=== PATIENT | female | born 1960 | race African-American/Black ===

== ENCOUNTER 2022-10-13 21:18 | Inpatient (IN) | payer OTHER ==
[2022-10-13] MEDS ORDERED: SODIUM CHLORIDE 0.9% 500 ML INFUS.BAG IV ONE (22:31)
[2022-10-13] MEDS: ALBUTEROL SO4 2.5/IPRATROPIUM 0.5 INH SOL 3 ML VIAL.NEB. NEB SCH ×4 (22:45→23:30)
[2022-10-13 23:31] LABS: BASO % 0.2 % (0-2.0); EOS % 0.9 % (0-4.5); HEMOGLOBIN 10.9 GM/dL (10.7-15.3); LYMPH % 5.2 % (8-40); MCHC 31.2 g/dl (32.0-36.0); MEAN CELL VOLUME 92.9 fl (80-96); MEAN PLT VOLUME 10.4 fl (7.5-11.1); NEUT % 89.7 % (42.8-82.8); PLATELET COUNT 89 10^3/uL (134-434); RBC 3.77 M/mm3 (3.60-5.2); RDW 19.5 % (11.6-15.6)
[2022-10-13 23:53] LABS: CALCIUM 8.8 mg/dL (8.5-10.1)
[2022-10-13] MEDS ORDERED: ALBUTEROL SO4 2.5/IPRATROPIUM 0.5 INH SOL 3 ML VIAL.NEB. NEB ONE (23:53)
[2022-10-13 23:54] LABS: ALBUMIN 3.3 g/dl (3.4-5.0); BLOOD UREA NITROGEN 64.6 mg/dL (7-18)
[2022-10-13 23:57] LABS: CREATININE 6.6 mg/dL (0.55-1.3)
[2022-10-13 23:58] LABS: BILIRUBIN,TOTAL 0.9 mg/dL (0.2-1); TOT PROT 6.3 g/dl (6.4-8.2)
[2022-10-14] MEDS ORDERED: DEXTROSE 50%-WATER - 25 GM/50 ML VIAL IVPUSH ONE ×3 (00:10→02:52)
[2022-10-14] MEDS ORDERED: DEXTROSE 50%-WATER 25 GM/50 ML DISP.SYRIN ONE ×3 (00:13→02:41)
[2022-10-14] MEDS ORDERED: MAGNESIUM 1GM/D5W - 1 GM/100 ML IVPB IVPB ONE (00:23)
[2022-10-14] MEDS ORDERED: CLOPIDOGREL BISULFATE 300 MG TABLET PO ONE (00:54)
[2022-10-14] MEDS ORDERED: CLOPIDOGREL BISULFATE 300 MG TABLET ONE (01:26)
[2022-10-14 02:27] LABS: N-TERMINAL BNP 56358.3 pg/ml (5-125)
[2022-10-14] MEDS ORDERED: ALBUTEROL SO4 0.083% IH SOL 2.5 MG/3 ML VIAL.NEB. NEB PRN (03:02)
[2022-10-14] MEDS ORDERED: HEPARIN NA (PORCINE) 5,000 UNITS/ML 1ML VIAL IVPUSH PRN ×2 (06:59)
[2022-10-14 07:40] LABS: INR 1.13 (0.83-1.09)
[2022-10-14 07:43] LABS: ACTIVATED PTT 28.1 SECONDS (25.2-36.5)
[2022-10-14] MEDS: HEPARIN INFUSION - 25,000 UNITS/500 ML INFUS.BAG IVPB SCH (08:45)
[2022-10-14] MEDS: metoPROLOL SUCCINATE 25 MG TAB.SR.24H (FP) PO SCH ×2 (09:37→18:02)
[2022-10-14] MEDS: CLOPIDOGREL BISULFATE 75 MG TABLET (FP) PO SCH (09:37)
[2022-10-14] MEDS: MUPIROCIN 2% TOPICAL OINTMENT FOR DECOLONIZATION NS SCH ×2 (09:37→21:45)
[2022-10-14] MEDS: PANTOPRAZOLE 40 MG TABLET PO SCH (09:37)
[2022-10-14] MEDS: POLYETHYLENE GLYCOL (HEALTHYLAX) 3350 17 GM PACKET PO SCH ×2 (09:37→21:46)
[2022-10-14] MEDS ORDERED: MUPIROCIN 2% TOPICAL OINTMENT FOR DECOLONIZATION NS SCH (10:00)
[2022-10-14] MEDS: CHLORHEXIDINE GLUCONATE 4% CLEANSER FOR DECOLONIZATION TP SCH (21:46)
[2022-10-14] MEDS ORDERED: CHLORHEXIDINE GLUCONATE 4% CLEANSER FOR DECOLONIZATION TP SCH (22:00)
[2022-10-15] MEDS: metoPROLOL SUCCINATE 25 MG TAB.SR.24H (FP) PO SCH ×3 (01:09→17:35)
[2022-10-15 07:59] LABS: BLOOD UREA NITROGEN 73.2 mg/dL (7-18)
[2022-10-15 08:01] LABS: ALBUMIN 2.6 g/dl (3.4-5.0)
[2022-10-15 08:04] LABS: CREATININE 7.1 mg/dL (0.55-1.3); PHOSPHOROUS 6.3 mg/dL (2.5-4.9)
[2022-10-15 08:05] LABS: BILIRUBIN,TOTAL 0.7 mg/dL (0.2-1); TOT PROT 5.3 g/dl (6.4-8.2)
[2022-10-15 08:18] LABS: CALCIUM 7.2 mg/dL (8.5-10.1)
[2022-10-15 08:23] LABS: INR 1.09 (0.83-1.09); PROTHROMBIN TIME (PATIENT) 12.6 SEC (9.7-13.0)
[2022-10-15 08:24] LABS: ACTIVATED PTT 52.6 SECONDS (25.2-36.5)
[2022-10-15 08:59] LABS: BASO % 0.2 % (0-2.0); EOS % 2.5 % (0-4.5); HEMATOCRIT 30.4 % (32.4-45.2); HEMOGLOBIN 9.5 GM/dL (10.7-15.3); LYMPH % 9.8 % (8-40); MCH 29.2 pg (25.7-33.7); MCHC 31.3 g/dl (32.0-36.0); MEAN CELL VOLUME 93.2 fl (80-96); MEAN PLT VOLUME 10.3 fl (7.5-11.1); MONO % 2.7 % (3.8-10.2); NEUT % 84.8 % (42.8-82.8); PLATELET COUNT 79 10^3/uL (134-434); RBC 3.27 M/mm3 (3.60-5.2); RDW 19.6 % (11.6-15.6); WHITE BLOOD COUNT 5.4 K/mm3 (4.0-10.0)
[2022-10-15] MEDS: HEPARIN INFUSION - 25,000 UNITS/500 ML INFUS.BAG IVPB SCH (10:00)
[2022-10-15] MEDS: CLOPIDOGREL BISULFATE 75 MG TABLET (FP) PO SCH (10:17)
[2022-10-15] MEDS: MUPIROCIN 2% TOPICAL OINTMENT FOR DECOLONIZATION NS SCH ×2 (10:19→21:34)
[2022-10-15] MEDS: PANTOPRAZOLE 40 MG TABLET PO SCH (10:19)
[2022-10-15] MEDS: POLYETHYLENE GLYCOL (HEALTHYLAX) 3350 17 GM PACKET PO SCH ×2 (10:20→21:33)
[2022-10-15] MEDS: SODIUM CHLORIDE 0.45% 1,000 ML IV SCH (11:41)
[2022-10-15] MEDS: CEFTRIAXONE 1 GM in DEXTROSE 5%-WATER - 50 ML IVPB SCH (11:41)
[2022-10-15] MEDS: CHLORHEXIDINE GLUCONATE 4% CLEANSER FOR DECOLONIZATION TP SCH (21:33)
[2022-10-16] MEDS: SODIUM CHLORIDE 0.45% 1,000 ML IV SCH ×2 (01:49→15:15)
[2022-10-16] MEDS: metoPROLOL SUCCINATE 25 MG TAB.SR.24H (FP) PO SCH ×2 (03:01→09:47)
[2022-10-16 07:22] LABS: BASO % 0.1 % (0-2.0); EOS % 1.8 % (0-4.5); HEMATOCRIT 31.4 % (32.4-45.2); HEMOGLOBIN 9.7 GM/dL (10.7-15.3); LYMPH % 7.6 % (8-40); MCHC 30.7 g/dl (32.0-36.0); MEAN CELL VOLUME 94.5 fl (80-96); MEAN PLT VOLUME 10.6 fl (7.5-11.1); MONO % 3.8 % (3.8-10.2); NEUT % 86.7 % (42.8-82.8); PLATELET COUNT 88 10^3/uL (134-434); RBC 3.32 M/mm3 (3.60-5.2); RDW 19.5 % (11.6-15.6); WHITE BLOOD COUNT 5.6 K/mm3 (4.0-10.0)
[2022-10-16 07:37] LABS: CALCIUM 7.2 mg/dL (8.5-10.1)
[2022-10-16 07:38] LABS: ALBUMIN 2.6 g/dl (3.4-5.0); BLOOD UREA NITROGEN 74.7 mg/dL (7-18)
[2022-10-16 07:41] LABS: CREATININE 7.2 mg/dL (0.55-1.3); PHOSPHOROUS 6.1 mg/dL (2.5-4.9)
[2022-10-16 07:43] LABS: BILIRUBIN,TOTAL 0.4 mg/dL (0.2-1); TOT PROT 5.6 g/dl (6.4-8.2)
[2022-10-16] MEDS: CLOPIDOGREL BISULFATE 75 MG TABLET (FP) PO SCH (09:46)
[2022-10-16] MEDS: PANTOPRAZOLE 40 MG TABLET PO SCH (09:47)
[2022-10-16] MEDS: CEFTRIAXONE 1 GM in DEXTROSE 5%-WATER - 50 ML IVPB SCH (09:48)
[2022-10-16] MEDS: POLYETHYLENE GLYCOL (HEALTHYLAX) 3350 17 GM PACKET PO SCH ×2 (09:48→23:57)
[2022-10-16] MEDS ORDERED: SODIUM ZIRCONIUM CYCLOSILICATE (LOKELMA) 5 GM PACKET PO SCH (10:00)
[2022-10-16] MEDS ORDERED: PIPERACILLIN/TAZOB 2.25 GM 2.25 GM in DEXTROSE 5%-WATER - 50 ML IVPB ONE ×2 (12:30→15:11)
[2022-10-16] MEDS ORDERED: ALBUTEROL SO4 0.083% IH SOL 2.5 MG/3 ML VIAL.NEB. NEB PRN (15:11)
[2022-10-16] MEDS: SODIUM ZIRCONIUM CYCLOSILICATE (LOKELMA) 5 GM PACKET PO SCH (15:18)
[2022-10-16 15:36] LABS: EPI CELLS 33 /uL (0-25.1); HYALINE CASTS 3 /uL (0-3.1); URINE APPEARANCE CLOUDY; URINE BACTERIA 76 /uL (0-1359); URINE BILIRUBIN NEGATIVE (NEGATIVE); URINE COLOR YELLOW; URINE GLUCOSE (UA) NEGATIVE (NEGATIVE); URINE KETONE NEGATIVE (NEGATIVE); URINE LEUK ESTERASE 1+ (NEGATIVE); URINE NITRITE NEGATIVE (NEGATIVE); URINE PROTEIN 2+ (NEGATIVE); URINE RBC 155 /uL (0-23.9); URINE UROBILINOGEN 0.2 mg/dL (0.2-1.0); URINE WBC 43 /uL (0-25.8)
[2022-10-16] MEDS ORDERED: metoPROLOL SUCCINATE 25 MG TAB.SR.24H (FP) PO SCH (18:00)
[2022-10-16] MEDS: PIPERACILLIN/TAZOB 2.25 GM 2.25 GM in DEXTROSE 5%-WATER - 50 ML IVPB SCH (23:56)
[2022-10-16] MEDS: ATORVASTATIN CA 40 MG TABLET (FP) PO SCH (23:56)
[2022-10-17] MEDS: CHLORHEXIDINE GLUCONATE 4% CLEANSER FOR DECOLONIZATION TP SCH (00:30)
[2022-10-17] MEDS: MUPIROCIN 2% TOPICAL OINTMENT FOR DECOLONIZATION NS SCH ×3 (00:30→21:50)
[2022-10-17] MEDS: PIPERACILLIN/TAZOB 2.25 GM 2.25 GM in DEXTROSE 5%-WATER - 50 ML IVPB SCH (07:01)
[2022-10-17 08:04] LABS: HEMATOCRIT 29.2 % (32.4-45.2); HEMOGLOBIN 9.3 GM/dL (10.7-15.3); MCH 29.9 pg (25.7-33.7); MCHC 31.9 g/dl (32.0-36.0); MEAN CELL VOLUME 93.9 fl (80-96); MEAN PLT VOLUME 10.1 fl (7.5-11.1); PLATELET COUNT 84 10^3/uL (134-434); RBC 3.11 M/mm3 (3.60-5.2); RDW 19.1 % (11.6-15.6); WHITE BLOOD COUNT 5.4 K/mm3 (4.0-10.0)
[2022-10-17 08:38] LABS: CALCIUM 7.4 mg/dL (8.5-10.1)
[2022-10-17 08:39] LABS: ALBUMIN 2.4 g/dl (3.4-5.0); BLOOD UREA NITROGEN 78.8 mg/dL (7-18)
[2022-10-17 08:42] LABS: BILIRUBIN,TOTAL 0.4 mg/dL (0.2-1); CREATININE 7.3 mg/dL (0.55-1.3); TOT PROT 5.5 g/dl (6.4-8.2)
[2022-10-17] MEDS ORDERED: CLOPIDOGREL BISULFATE 75 MG TABLET (FP) PO SCH (10:00)
[2022-10-17] MEDS: CARVEDILOL 3.125 MG TABLET (FP) PO SCH ×2 (10:17→21:52)
[2022-10-17] MEDS: PANTOPRAZOLE 40 MG TABLET PO SCH (10:17)
[2022-10-17] MEDS: POLYETHYLENE GLYCOL (HEALTHYLAX) 3350 17 GM PACKET PO SCH ×2 (10:17→21:54)
[2022-10-17] MEDS: SODIUM ZIRCONIUM CYCLOSILICATE (LOKELMA) 5 GM PACKET PO SCH (10:17)
[2022-10-17] MEDS: SODIUM BICARBONATE 650 MG TABLET PO SCH ×2 (14:51→21:52)
[2022-10-17] MEDS: SODIUM CHLORIDE 0.45% 1,000 ML IV SCH (14:51)
[2022-10-17] MEDS: CEFTRIAXONE 1 GM in DEXTROSE 5%-WATER - 50 ML IVPB SCH (14:51)
[2022-10-17] MEDS: ATORVASTATIN CA 40 MG TABLET (FP) PO SCH (21:52)
[2022-10-18] MEDS: CHLORHEXIDINE GLUCONATE 4% CLEANSER FOR DECOLONIZATION TP SCH ×2 (06:12→20:59)
[2022-10-18 07:29] LABS: BASO % 0.4 % (0-2.0); EOS % 2.3 % (0-4.5); HEMATOCRIT 28.8 % (32.4-45.2); HEMOGLOBIN 9.3 GM/dL (10.7-15.3); LYMPH % 13.7 % (8-40); MCH 29.6 pg (25.7-33.7); MCHC 32.2 g/dl (32.0-36.0); MEAN PLT VOLUME 10.3 fl (7.5-11.1); MONO % 7.2 % (3.8-10.2); NEUT % 76.4 % (42.8-82.8); PLATELET COUNT 89 10^3/uL (134-434); RBC 3.14 M/mm3 (3.60-5.2); RDW 18.8 % (11.6-15.6); WHITE BLOOD COUNT 5.4 K/mm3 (4.0-10.0)
[2022-10-18 07:42] LABS: CALCIUM 7.6 mg/dL (8.5-10.1)
[2022-10-18 07:43] LABS: ALBUMIN 2.5 g/dl (3.4-5.0); BLOOD UREA NITROGEN 83.1 mg/dL (7-18)
[2022-10-18 07:46] LABS: CREATININE 7.4 mg/dL (0.55-1.3)
[2022-10-18 07:47] LABS: BILIRUBIN,TOTAL 0.4 mg/dL (0.2-1); TOT PROT 5.6 g/dl (6.4-8.2)
[2022-10-18] MEDS: SODIUM CHLORIDE 0.45% 1,000 ML IV SCH (08:00)
[2022-10-18] MEDS ORDERED: REGADENOSON 0.4 MG/5 ML PRE-FILLED SYRINGE IVPUSH ONE (10:15)
[2022-10-18] MEDS: CEFTRIAXONE 1 GM in DEXTROSE 5%-WATER - 50 ML IVPB SCH (12:52)
[2022-10-18] MEDS: CARVEDILOL 3.125 MG TABLET (FP) PO SCH ×2 (12:52→21:39)
[2022-10-18] MEDS: POLYETHYLENE GLYCOL (HEALTHYLAX) 3350 17 GM PACKET PO SCH ×2 (12:52→21:39)
[2022-10-18] MEDS: SODIUM BICARBONATE 650 MG TABLET PO SCH ×2 (12:52→21:39)
[2022-10-18] MEDS: MUPIROCIN 2% TOPICAL OINTMENT FOR DECOLONIZATION NS SCH ×2 (12:52→20:59)
[2022-10-18] MEDS: PANTOPRAZOLE 40 MG TABLET PO SCH (12:52)
[2022-10-18] MEDS ORDERED: ACETAMINOPHEN 1000 MG/100 ML BAG IVPB ONE (15:00)
[2022-10-18] MEDS: SODIUM ZIRCONIUM CYCLOSILICATE (LOKELMA) 5 GM PACKET PO SCH (15:36)
[2022-10-18 21:11] LABS: ANTIGLOMERULAR BASEMENT MEN.AB <0.2 units (0.0-0.9)
[2022-10-18] MEDS: ATORVASTATIN CA 40 MG TABLET (FP) PO SCH (21:39)
[2022-10-19] MEDS: SODIUM CHLORIDE 0.45% 1,000 ML IV SCH (03:29)
[2022-10-19] MEDS: ACETAMINOPHEN 325 MG TABLET (FP) PO PRN (07:49)
[2022-10-19 10:00] LABS: BASO % 0.7 % (0-2.0); HEMATOCRIT 28.5 % (32.4-45.2); HEMOGLOBIN 9.1 GM/dL (10.7-15.3); LYMPH % 10.6 % (8-40); MCH 29.6 pg (25.7-33.7); MCHC 31.9 g/dl (32.0-36.0); MEAN PLT VOLUME 10.6 fl (7.5-11.1); MONO % 8.7 % (3.8-10.2); PLATELET COUNT 109 10^3/uL (134-434); RBC 3.07 M/mm3 (3.60-5.2); RDW 18.9 % (11.6-15.6)
[2022-10-19] MEDS: POLYETHYLENE GLYCOL (HEALTHYLAX) 3350 17 GM PACKET PO SCH ×2 (10:10→22:58)
[2022-10-19] MEDS: CEFTRIAXONE 1 GM in DEXTROSE 5%-WATER - 50 ML IVPB SCH (10:20)
[2022-10-19] MEDS: SODIUM BICARBONATE 650 MG TABLET PO SCH ×2 (10:21→22:58)
[2022-10-19] MEDS: PANTOPRAZOLE 40 MG TABLET PO SCH (10:21)
[2022-10-19] MEDS: CARVEDILOL 3.125 MG TABLET (FP) PO SCH ×2 (10:21→22:58)
[2022-10-19 10:29] LABS: ALBUMIN 2.4 g/dl (3.4-5.0); CALCIUM 7.7 mg/dL (8.5-10.1)
[2022-10-19 10:31] LABS: BLOOD UREA NITROGEN 87.4 mg/dL (7-18); MAGNESIUM 1.9 mg/dL (1.8-2.4)
[2022-10-19 10:33] LABS: CREATININE 7.4 mg/dL (0.55-1.3); PHOSPHOROUS 6.4 mg/dL (2.5-4.9)
[2022-10-19 10:34] LABS: TOT PROT 5.6 g/dl (6.4-8.2)
[2022-10-19 10:39] LABS: BILIRUBIN,TOTAL 0.4 mg/dL (0.2-1)
[2022-10-19] MEDS: SODIUM ZIRCONIUM CYCLOSILICATE (LOKELMA) 5 GM PACKET PO SCH (12:56)
[2022-10-19 16:08] LABS: ATYPICAL pANCA <1:20 titer (Neg:<1:20); C-ANCA <1:20 titer (Neg:<1:20)
[2022-10-19] MEDS: AMOX TR/POT CLAV 500MG/125MG TABLETS (FP) PO SCH (17:51)
[2022-10-19] MEDS: ATORVASTATIN CA 40 MG TABLET (FP) PO SCH (22:57)
[2022-10-19] MEDS: CHLORHEXIDINE GLUCONATE 4% CLEANSER FOR DECOLONIZATION TP SCH (22:58)
[2022-10-20] MEDS: AMOX TR/POT CLAV 500MG/125MG TABLETS (FP) PO SCH ×2 (08:39→17:21)
[2022-10-20 08:49] LABS: EOS % 3.1 % (0-4.5); HEMOGLOBIN 8.7 GM/dL (10.7-15.3); LYMPH % 11.8 % (8-40); MCH 29.9 pg (25.7-33.7); MCHC 31.3 g/dl (32.0-36.0); MEAN CELL VOLUME 95.5 fl (80-96); MEAN PLT VOLUME 10.6 fl (7.5-11.1); MONO % 10.4 % (3.8-10.2); NEUT % 73.7 % (42.8-82.8); PLATELET COUNT 114 10^3/uL (134-434); RBC 2.93 M/mm3 (3.60-5.2); WHITE BLOOD COUNT 5.4 K/mm3 (4.0-10.0)
[2022-10-20 08:54] LABS: CHLORIDE 114 mmol/L (98-107); SODIUM 141 mmol/L (136-145)
[2022-10-20 08:58] LABS: ALBUMIN 2.4 g/dl (3.4-5.0); ANION GAP 9 MMOL/L (8-16); CALCIUM 7.4 mg/dL (8.5-10.1); CO2 18 mmol/L (21-32); GLUCOSE,RANDOM 84 mg/dL (74-106); MAGNESIUM 1.9 mg/dL (1.8-2.4)
[2022-10-20 09:01] LABS: PHOSPHOROUS 6.6 mg/dL (2.5-4.9); SGOT/AST 10 U/L (15-37); SGPT/ALT 12 U/L (13-61)
[2022-10-20 09:03] LABS: BILIRUBIN,TOTAL 0.3 mg/dL (0.2-1); TOT PROT 5.6 g/dl (6.4-8.2)
[2022-10-20 09:04] LABS: ALK PHOS 74 U/L (45-117)
[2022-10-20 09:09] LABS: CREATININE 7.6 mg/dL (0.55-1.3)
[2022-10-20] MEDS: SODIUM BICARBONATE 650 MG TABLET PO SCH ×2 (10:32→22:34)
[2022-10-20] MEDS: POLYETHYLENE GLYCOL (HEALTHYLAX) 3350 17 GM PACKET PO SCH ×3 (10:32→22:22)
[2022-10-20] MEDS: SODIUM ZIRCONIUM CYCLOSILICATE (LOKELMA) 5 GM PACKET PO SCH (10:32)
[2022-10-20] MEDS: PANTOPRAZOLE 40 MG TABLET PO SCH (10:33)
[2022-10-20] MEDS: CARVEDILOL 3.125 MG TABLET (FP) PO SCH (10:33)
[2022-10-20 15:54] VITALS: BMI 51.5
[2022-10-20] MEDS: CHLORHEXIDINE GLUCONATE 4% CLEANSER FOR DECOLONIZATION TP SCH (22:22)
[2022-10-20] MEDS: CARVEDILOL 6.25 MG TABLET (FP) PO SCH (22:34)
[2022-10-20] MEDS: ATORVASTATIN CA 40 MG TABLET (FP) PO SCH (22:34)
[2022-10-21 07:32] LABS: BASO % 0.7 % (0-2.0); EOS % 2.5 % (0-4.5); HEMATOCRIT 29.1 % (32.4-45.2); HEMOGLOBIN 8.8 GM/dL (10.7-15.3); LYMPH % 10.5 % (8-40); MCH 29.2 pg (25.7-33.7); MCHC 30.4 g/dl (32.0-36.0); MEAN PLT VOLUME 9.8 fl (7.5-11.1); MONO % 8.6 % (3.8-10.2); NEUT % 77.7 % (42.8-82.8); PLATELET COUNT 119 10^3/uL (134-434); RBC 3.03 M/mm3 (3.60-5.2); RDW 19.3 % (11.6-15.6); WHITE BLOOD COUNT 5.1 K/mm3 (4.0-10.0)
[2022-10-21 07:49] LABS: CHLORIDE 113 mmol/L (98-107); SODIUM 143 mmol/L (136-145)
[2022-10-21 07:53] LABS: ALBUMIN 2.4 g/dl (3.4-5.0); ANION GAP 9 MMOL/L (8-16); BLOOD UREA NITROGEN 84.8 mg/dL (7-18); CALCIUM 7.6 mg/dL (8.5-10.1); CO2 21 mmol/L (21-32); GLUCOSE,RANDOM 88 mg/dL (74-106); MAGNESIUM 1.8 mg/dL (1.8-2.4)
[2022-10-21 07:55] LABS: SGPT/ALT 12 U/L (13-61)
[2022-10-21 07:57] LABS: BILIRUBIN,TOTAL 0.2 mg/dL (0.2-1); PHOSPHOROUS 6.9 mg/dL (2.5-4.9); SGOT/AST 11 U/L (15-37); TOT PROT 5.7 g/dl (6.4-8.2)
[2022-10-21 07:58] LABS: ALK PHOS 88 U/L (45-117)
[2022-10-21] MEDS: AMOX TR/POT CLAV 500MG/125MG TABLETS (FP) PO SCH ×2 (08:08→17:01)
[2022-10-21] MEDS: VITAMIN B COMP W-C 1 EA TABLET (NEPHRO-VITE) PO SCH (10:48)
[2022-10-21] MEDS: SODIUM BICARBONATE 650 MG TABLET PO SCH ×2 (10:48→21:43)
[2022-10-21] MEDS: SODIUM ZIRCONIUM CYCLOSILICATE (LOKELMA) 5 GM PACKET PO SCH (10:48)
[2022-10-21] MEDS: PANTOPRAZOLE 40 MG TABLET PO SCH (10:48)
[2022-10-21] MEDS: CARVEDILOL 6.25 MG TABLET (FP) PO SCH ×2 (10:48→21:43)
[2022-10-21] MEDS: POLYETHYLENE GLYCOL (HEALTHYLAX) 3350 17 GM PACKET PO SCH ×2 (10:49→21:43)
[2022-10-21] MEDS: CALCIUM ACETATE 667 MG CAPSULE (FP) PO SCH ×2 (12:29→17:01)
[2022-10-21] MEDS: ATORVASTATIN CA 40 MG TABLET (FP) PO SCH (21:43)
[2022-10-21] MEDS: CHLORHEXIDINE GLUCONATE 4% CLEANSER FOR DECOLONIZATION TP SCH (21:43)
[2022-10-22] MEDS: CALCIUM ACETATE 667 MG CAPSULE (FP) PO SCH ×3 (07:59→18:12)
[2022-10-22 08:06] LABS: EOS % 2.2 % (0-4.5); HEMATOCRIT 26.8 % (32.4-45.2); HEMOGLOBIN 8.4 GM/dL (10.7-15.3); LYMPH % 10.9 % (8-40); MCH 30.1 pg (25.7-33.7); MCHC 31.2 g/dl (32.0-36.0); MEAN CELL VOLUME 96.4 fl (80-96); MEAN PLT VOLUME 10.1 fl (7.5-11.1); MONO % 9.7 % (3.8-10.2); NEUT % 76.2 % (42.8-82.8); PLATELET COUNT 130 10^3/uL (134-434); RBC 2.78 M/mm3 (3.60-5.2); WHITE BLOOD COUNT 5.4 K/mm3 (4.0-10.0)
[2022-10-22] MEDS: PANTOPRAZOLE 40 MG TABLET PO SCH (09:37)
[2022-10-22] MEDS: SODIUM BICARBONATE 650 MG TABLET PO SCH ×2 (09:37→21:53)
[2022-10-22] MEDS: VITAMIN B COMP W-C 1 EA TABLET (NEPHRO-VITE) PO SCH (09:37)
[2022-10-22] MEDS: CARVEDILOL 6.25 MG TABLET (FP) PO SCH ×2 (09:37→21:53)
[2022-10-22] MEDS: POLYETHYLENE GLYCOL (HEALTHYLAX) 3350 17 GM PACKET PO SCH ×2 (09:40→21:53)
[2022-10-22] MEDS: SODIUM ZIRCONIUM CYCLOSILICATE (LOKELMA) 5 GM PACKET PO SCH (13:00)
[2022-10-22 13:10] LABS: CHLORIDE 114 mmol/L (98-107); SODIUM 143 mmol/L (136-145)
[2022-10-22 13:14] LABS: ALBUMIN 2.3 g/dl (3.4-5.0); ANION GAP 9 MMOL/L (8-16); CALCIUM 7.6 mg/dL (8.5-10.1); CO2 19 mmol/L (21-32); GLUCOSE,RANDOM 105 mg/dL (74-106)
[2022-10-22 13:15] LABS: MAGNESIUM 1.7 mg/dL (1.8-2.4)
[2022-10-22 13:18] LABS: ALK PHOS 95 U/L (45-117); PHOSPHOROUS 7.1 mg/dL (2.5-4.9); SGOT/AST 15 U/L (15-37); SGPT/ALT 14 U/L (13-61)
[2022-10-22 13:19] LABS: BILIRUBIN,TOTAL 0.4 mg/dL (0.2-1); TOT PROT 5.6 g/dl (6.4-8.2)
[2022-10-22 13:23] LABS: CREATININE 7.9 mg/dL (0.55-1.3)
[2022-10-22] MEDS: CHLORHEXIDINE GLUCONATE 4% CLEANSER FOR DECOLONIZATION TP SCH (21:53)
[2022-10-22] MEDS: ATORVASTATIN CA 40 MG TABLET (FP) PO SCH (21:53)
[2022-10-23 07:45] LABS: BASO % 0.7 % (0-2.0); EOS % 2.1 % (0-4.5); HEMATOCRIT 27.5 % (32.4-45.2); HEMOGLOBIN 8.6 GM/dL (10.7-15.3); LYMPH % 11.9 % (8-40); MCH 29.8 pg (25.7-33.7); MCHC 31.4 g/dl (32.0-36.0); MEAN CELL VOLUME 95.1 fl (80-96); MEAN PLT VOLUME 9.9 fl (7.5-11.1); MONO % 10.8 % (3.8-10.2); NEUT % 74.5 % (42.8-82.8); PLATELET COUNT 163 10^3/uL (134-434); RBC 2.89 M/mm3 (3.60-5.2); RDW 18.9 % (11.6-15.6); WHITE BLOOD COUNT 6.1 K/mm3 (4.0-10.0)
[2022-10-23] MEDS: CALCIUM ACETATE 667 MG CAPSULE (FP) PO SCH ×3 (08:01→17:40)
[2022-10-23 08:02] LABS: CHLORIDE 113 mmol/L (98-107); SODIUM 143 mmol/L (136-145)
[2022-10-23 08:16] LABS: CALCIUM 7.8 mg/dL (8.5-10.1)
[2022-10-23 08:17] LABS: ALBUMIN 2.3 g/dl (3.4-5.0); ANION GAP 11 MMOL/L (8-16); BLOOD UREA NITROGEN 87.5 mg/dL (7-18); CO2 19 mmol/L (21-32); GLUCOSE,RANDOM 90 mg/dL (74-106); MAGNESIUM 1.8 mg/dL (1.8-2.4)
[2022-10-23 08:20] LABS: SGOT/AST 20 U/L (15-37); SGPT/ALT 16 U/L (13-61)
[2022-10-23 08:22] LABS: ALK PHOS 98 U/L (45-117); BILIRUBIN,TOTAL 0.4 mg/dL (0.2-1); TOT PROT 5.6 g/dl (6.4-8.2)
[2022-10-23 08:26] LABS: CREATININE 7.7 mg/dL (0.55-1.3)
[2022-10-23] MEDS ORDERED: MIDAZOLAM HCL 2 MG/2 ML SINGLE DOSE VIAL ONE (09:41)
[2022-10-23] MEDS ORDERED: FENTANYL CITRATE/PF 50 MCG/ML VIAL ONE (09:41)
[2022-10-23] MEDS ORDERED: SODIUM CHLORIDE 500 ML IV ONE (11:10)
[2022-10-23] MEDS: SODIUM BICARBONATE 650 MG TABLET PO SCH ×2 (12:39→21:26)
[2022-10-23] MEDS: VITAMIN B COMP W-C 1 EA TABLET (NEPHRO-VITE) PO SCH (12:39)
[2022-10-23] MEDS: CARVEDILOL 6.25 MG TABLET (FP) PO SCH ×2 (12:39→21:26)
[2022-10-23] MEDS: PANTOPRAZOLE 40 MG TABLET PO SCH (12:39)
[2022-10-23] MEDS: POLYETHYLENE GLYCOL (HEALTHYLAX) 3350 17 GM PACKET PO SCH ×2 (12:40→21:27)
[2022-10-23] MEDS: SODIUM ZIRCONIUM CYCLOSILICATE (LOKELMA) 5 GM PACKET PO SCH (12:40)
[2022-10-23] MEDS ORDERED: FUROSEMIDE 40 MG/4 ML INJECTABLE VIAL IVPUSH ONE (15:58)
[2022-10-23] MEDS: ACETAMINOPHEN 325 MG TABLET (FP) PO PRN (21:25)
[2022-10-23] MEDS: ATORVASTATIN CA 40 MG TABLET (FP) PO SCH (21:26)
[2022-10-23] MEDS: CHLORHEXIDINE GLUCONATE 4% CLEANSER FOR DECOLONIZATION TP SCH (21:27)
[2022-10-24 08:27] LABS: BASO % 0.6 % (0-2.0); EOS % 1.9 % (0-4.5); HEMATOCRIT 27.1 % (32.4-45.2); HEMOGLOBIN 8.5 GM/dL (10.7-15.3); LYMPH % 10.7 % (8-40); MCH 29.8 pg (25.7-33.7); MCHC 31.2 g/dl (32.0-36.0); MEAN CELL VOLUME 95.3 fl (80-96); MEAN PLT VOLUME 9.9 fl (7.5-11.1); MONO % 9.2 % (3.8-10.2); NEUT % 77.6 % (42.8-82.8); PLATELET COUNT 171 10^3/uL (134-434); RBC 2.84 M/mm3 (3.60-5.2); RDW 18.8 % (11.6-15.6); WHITE BLOOD COUNT 6.1 K/mm3 (4.0-10.0)
[2022-10-24 08:49] LABS: CHLORIDE 113 mmol/L (98-107); SODIUM 142 mmol/L (136-145)
[2022-10-24 08:51] LABS: ALBUMIN 2.2 g/dl (3.4-5.0); ANION GAP 11 MMOL/L (8-16); BLOOD UREA NITROGEN 91.1 mg/dL (7-18); CALCIUM 7.8 mg/dL (8.5-10.1); CO2 18 mmol/L (21-32); GLUCOSE,RANDOM 89 mg/dL (74-106); MAGNESIUM 1.6 mg/dL (1.8-2.4)
[2022-10-24 08:54] LABS: PHOSPHOROUS 6.8 mg/dL (2.5-4.9); SGOT/AST 17 U/L (15-37); SGPT/ALT 16 U/L (13-61)
[2022-10-24 08:56] LABS: BILIRUBIN,TOTAL 0.4 mg/dL (0.2-1); TOT PROT 5.4 g/dl (6.4-8.2)
[2022-10-24 08:57] LABS: ALK PHOS 93 U/L (45-117)
[2022-10-24 09:03] LABS: CREATININE 7.8 mg/dL (0.55-1.3)
[2022-10-24] MEDS: CALCIUM ACETATE 667 MG CAPSULE (FP) PO SCH ×3 (09:55→17:40)
[2022-10-24] MEDS: SODIUM BICARBONATE 650 MG TABLET PO SCH ×2 (10:54→21:31)
[2022-10-24] MEDS: SODIUM ZIRCONIUM CYCLOSILICATE (LOKELMA) 5 GM PACKET PO SCH (10:54)
[2022-10-24] MEDS: VITAMIN B COMP W-C 1 EA TABLET (NEPHRO-VITE) PO SCH (10:54)
[2022-10-24] MEDS: PANTOPRAZOLE 40 MG TABLET PO SCH (10:54)
[2022-10-24] MEDS: CARVEDILOL 6.25 MG TABLET (FP) PO SCH ×2 (10:54→21:31)
[2022-10-24] MEDS: POLYETHYLENE GLYCOL (HEALTHYLAX) 3350 17 GM PACKET PO SCH ×2 (11:38→21:39)
[2022-10-24] MEDS: FUROSEMIDE 40 MG/4 ML INJECTABLE VIAL IVPUSH SCH (15:15)
[2022-10-24] MEDS: ATORVASTATIN CA 40 MG TABLET (FP) PO SCH (21:31)
[2022-10-24] MEDS: HEPARIN NA (PORCINE) 5,000 UNITS/ML 1ML VIAL SQ SCH (21:32)
[2022-10-24] MEDS: CHLORHEXIDINE GLUCONATE 4% CLEANSER FOR DECOLONIZATION TP SCH (21:39)
[2022-10-25] MEDS: FUROSEMIDE 40 MG/4 ML INJECTABLE VIAL IVPUSH SCH ×2 (06:20→13:19)
[2022-10-25] MEDS: HEPARIN NA (PORCINE) 5,000 UNITS/ML 1ML VIAL SQ SCH ×3 (06:20→22:17)
[2022-10-25] MEDS: CALCIUM ACETATE 667 MG CAPSULE (FP) PO SCH ×3 (08:18→17:24)
[2022-10-25 08:39] LABS: BASO % 0.7 % (0-2.0); HEMATOCRIT 25.9 % (32.4-45.2); HEMOGLOBIN 8.3 GM/dL (10.7-15.3); LYMPH % 13.3 % (8-40); MCH 29.9 pg (25.7-33.7); MEAN CELL VOLUME 93.6 fl (80-96); MEAN PLT VOLUME 9.4 fl (7.5-11.1); MONO % 9.8 % (3.8-10.2); NEUT % 74.2 % (42.8-82.8); PLATELET COUNT 185 10^3/uL (134-434); RBC 2.77 M/mm3 (3.60-5.2); RDW 18.2 % (11.6-15.6); WHITE BLOOD COUNT 6.1 K/mm3 (4.0-10.0)
[2022-10-25 09:16] LABS: CHLORIDE 112 mmol/L (98-107); SODIUM 142 mmol/L (136-145)
[2022-10-25 09:19] LABS: ALBUMIN 2.3 g/dl (3.4-5.0); ANION GAP 10 MMOL/L (8-16); BLOOD UREA NITROGEN 88.2 mg/dL (7-18); CO2 21 mmol/L (21-32); GLUCOSE,RANDOM 83 mg/dL (74-106); MAGNESIUM 1.8 mg/dL (1.8-2.4)
[2022-10-25 09:22] LABS: SGOT/AST 16 U/L (15-37); SGPT/ALT 17 U/L (13-61)
[2022-10-25 09:24] LABS: BILIRUBIN,TOTAL 0.3 mg/dL (0.2-1); TOT PROT 5.6 g/dl (6.4-8.2)
[2022-10-25 09:25] LABS: ALK PHOS 85 U/L (45-117)
[2022-10-25 09:28] LABS: CREATININE 7.7 mg/dL (0.55-1.3)
[2022-10-25] MEDS: CARVEDILOL 6.25 MG TABLET (FP) PO SCH ×2 (10:18→22:17)
[2022-10-25] MEDS: PANTOPRAZOLE 40 MG TABLET PO SCH (10:18)
[2022-10-25] MEDS: SODIUM BICARBONATE 650 MG TABLET PO SCH ×2 (10:18→22:17)
[2022-10-25] MEDS: VITAMIN B COMP W-C 1 EA TABLET (NEPHRO-VITE) PO SCH (10:19)
[2022-10-25] MEDS: POLYETHYLENE GLYCOL (HEALTHYLAX) 3350 17 GM PACKET PO SCH ×2 (12:25→22:18)
[2022-10-25] MEDS: ATORVASTATIN CA 40 MG TABLET (FP) PO SCH (22:14)
[2022-10-25] MEDS: ACETAMINOPHEN 325 MG TABLET (FP) PO PRN (22:15)
[2022-10-25] MEDS: CHLORHEXIDINE GLUCONATE 4% CLEANSER FOR DECOLONIZATION TP SCH (22:18)
[2022-10-26] MEDS: FUROSEMIDE 40 MG/4 ML INJECTABLE VIAL IVPUSH SCH ×2 (05:33→14:40)
[2022-10-26] MEDS: HEPARIN NA (PORCINE) 5,000 UNITS/ML 1ML VIAL SQ SCH ×3 (05:33→22:40)
[2022-10-26 08:21] LABS: BASO % 0.7 % (0-2.0); EOS % 1.6 % (0-4.5); HEMATOCRIT 26.2 % (32.4-45.2); HEMOGLOBIN 8.3 GM/dL (10.7-15.3); LYMPH % 12.3 % (8-40); MCH 30.1 pg (25.7-33.7); MCHC 31.8 g/dl (32.0-36.0); MEAN CELL VOLUME 94.5 fl (80-96); MEAN PLT VOLUME 10.2 fl (7.5-11.1); MONO % 9.5 % (3.8-10.2); NEUT % 75.9 % (42.8-82.8); PLATELET COUNT 203 10^3/uL (134-434); RBC 2.78 M/mm3 (3.60-5.2); RDW 18.2 % (11.6-15.6); WHITE BLOOD COUNT 6.5 K/mm3 (4.0-10.0)
[2022-10-26 08:27] LABS: CHLORIDE 111 mmol/L (98-107); SODIUM 141 mmol/L (136-145)
[2022-10-26 08:32] LABS: AMYLASE 131 U/L (25-115); LIPASE 265 U/L (73-393)
[2022-10-26 08:35] LABS: CALCIUM 8.1 mg/dL (8.5-10.1)
[2022-10-26 08:36] LABS: ANION GAP 10 MMOL/L (8-16); CO2 20 mmol/L (21-32)
[2022-10-26 08:37] LABS: ALBUMIN 2.2 g/dl (3.4-5.0); GLUCOSE,RANDOM 84 mg/dL (74-106); MAGNESIUM 1.8 mg/dL (1.8-2.4)
[2022-10-26 08:38] LABS: BLOOD UREA NITROGEN 92.4 mg/dL (7-18)
[2022-10-26 08:39] LABS: SGPT/ALT 18 U/L (13-61)
[2022-10-26 08:41] LABS: TOT PROT 5.6 g/dl (6.4-8.2)
[2022-10-26 08:42] LABS: ALK PHOS 89 U/L (45-117); PHOSPHOROUS 7.2 mg/dL (2.5-4.9)
[2022-10-26 08:44] LABS: BILIRUBIN,TOTAL 0.2 mg/dL (0.2-1); SGOT/AST 21 U/L (15-37)
[2022-10-26 08:58] LABS: CREATININE 7.8 mg/dL (0.55-1.3)
[2022-10-26] MEDS: PANTOPRAZOLE 40 MG TABLET PO SCH (09:37)
[2022-10-26] MEDS: SODIUM BICARBONATE 650 MG TABLET PO SCH ×2 (09:38→22:40)
[2022-10-26] MEDS: VITAMIN B COMP W-C 1 EA TABLET (NEPHRO-VITE) PO SCH (09:38)
[2022-10-26] MEDS: POLYETHYLENE GLYCOL (HEALTHYLAX) 3350 17 GM PACKET PO SCH ×2 (09:38→22:43)
[2022-10-26] MEDS: CALCIUM ACETATE 667 MG CAPSULE (FP) PO SCH ×3 (09:38→16:43)
[2022-10-26] MEDS: CARVEDILOL 6.25 MG TABLET (FP) PO SCH ×2 (09:40→22:43)
[2022-10-26] MEDS ORDERED: FUROSEMIDE 40 MG/4 ML INJECTABLE VIAL IVPUSH ONE (16:08)
[2022-10-26] MEDS: ACETAMINOPHEN 325 MG TABLET (FP) PO PRN (22:41)
[2022-10-26] MEDS: ATORVASTATIN CA 40 MG TABLET (FP) PO SCH (22:43)
[2022-10-26] MEDS: CHLORHEXIDINE GLUCONATE 4% CLEANSER FOR DECOLONIZATION TP SCH (22:44)
[2022-10-27] MEDS: HEPARIN NA (PORCINE) 5,000 UNITS/ML 1ML VIAL SQ SCH ×3 (05:43→22:04)
[2022-10-27] MEDS: FUROSEMIDE 40 MG/4 ML INJECTABLE VIAL IVPUSH SCH ×2 (05:44→14:28)
[2022-10-27] MEDS: ACETAMINOPHEN 325 MG TABLET (FP) PO PRN (05:51)
[2022-10-27 08:51] LABS: CHLORIDE 110 mmol/L (98-107); SODIUM 141 mmol/L (136-145)
[2022-10-27 08:55] LABS: CALCIUM 7.8 mg/dL (8.5-10.1)
[2022-10-27 08:56] LABS: ALBUMIN 2.1 g/dl (3.4-5.0); AMYLASE 142 U/L (25-115); ANION GAP 11 MMOL/L (8-16); BLOOD UREA NITROGEN 91.9 mg/dL (7-18); CO2 20 mmol/L (21-32); GLUCOSE,RANDOM 83 mg/dL (74-106); LIPASE 228 U/L (73-393); MAGNESIUM 1.8 mg/dL (1.8-2.4)
[2022-10-27 08:57] LABS: BASO % 0.4 % (0-2.0); EOS % 1.7 % (0-4.5); HEMATOCRIT 24.2 % (32.4-45.2); HEMOGLOBIN 7.7 GM/dL (10.7-15.3); LYMPH % 14.2 % (8-40); MCH 29.7 pg (25.7-33.7); MCHC 31.7 g/dl (32.0-36.0); MEAN CELL VOLUME 93.7 fl (80-96); MEAN PLT VOLUME 9.1 fl (7.5-11.1); MONO % 9.8 % (3.8-10.2); NEUT % 73.9 % (42.8-82.8); PLATELET COUNT 190 10^3/uL (134-434); RBC 2.59 M/mm3 (3.60-5.2); RDW 18.3 % (11.6-15.6); WHITE BLOOD COUNT 6.4 K/mm3 (4.0-10.0)
[2022-10-27 08:58] LABS: PHOSPHOROUS 6.9 mg/dL (2.5-4.9)
[2022-10-27 08:59] LABS: SGOT/AST 17 U/L (15-37); SGPT/ALT 19 U/L (13-61)
[2022-10-27 09:00] LABS: BILIRUBIN,TOTAL 0.3 mg/dL (0.2-1); TOT PROT 5.4 g/dl (6.4-8.2)
[2022-10-27 09:01] LABS: ALK PHOS 84 U/L (45-117)
[2022-10-27] MEDS: POLYETHYLENE GLYCOL (HEALTHYLAX) 3350 17 GM PACKET PO SCH ×2 (11:37→22:05)
[2022-10-27] MEDS: CALCIUM ACETATE 667 MG CAPSULE (FP) PO SCH ×3 (11:39→17:27)
[2022-10-27] MEDS: VITAMIN B COMP W-C 1 EA TABLET (NEPHRO-VITE) PO SCH (11:39)
[2022-10-27] MEDS: PANTOPRAZOLE 40 MG TABLET PO SCH (11:39)
[2022-10-27] MEDS: CARVEDILOL 6.25 MG TABLET (FP) PO SCH ×2 (11:39→22:07)
[2022-10-27] MEDS: SODIUM BICARBONATE 650 MG TABLET PO SCH ×2 (11:39→22:05)
[2022-10-27] MEDS ORDERED: ALBUTEROL SO4 0.083% IH SOL 2.5 MG/3 ML VIAL.NEB. NEB PRN (15:27)
[2022-10-27] MEDS ORDERED: ACETAMINOPHEN 325 MG TABLET (FP) PO PRN (15:27)
[2022-10-27] MEDS ORDERED: CHLORHEXIDINE GLUCONATE 4% CLEANSER FOR DECOLONIZATION TP SCH (22:00)
[2022-10-27] MEDS: ATORVASTATIN CA 40 MG TABLET (FP) PO SCH (22:05)
[2022-10-28] MEDS: HEPARIN NA (PORCINE) 5,000 UNITS/ML 1ML VIAL SQ SCH ×3 (05:47→21:34)
[2022-10-28] MEDS: FUROSEMIDE 40 MG/4 ML INJECTABLE VIAL IVPUSH SCH ×2 (06:59→15:14)
[2022-10-28] MEDS: CALCIUM ACETATE 667 MG CAPSULE (FP) PO SCH ×3 (10:10→17:17)
[2022-10-28] MEDS: CARVEDILOL 6.25 MG TABLET (FP) PO SCH ×2 (10:10→21:33)
[2022-10-28] MEDS: SODIUM BICARBONATE 650 MG TABLET PO SCH ×2 (10:10→21:33)
[2022-10-28] MEDS: PANTOPRAZOLE 40 MG TABLET PO SCH (10:10)
[2022-10-28] MEDS: VITAMIN B COMP W-C 1 EA TABLET (NEPHRO-VITE) PO SCH (10:11)
[2022-10-28] MEDS: POLYETHYLENE GLYCOL (HEALTHYLAX) 3350 17 GM PACKET PO SCH ×2 (10:11→21:33)
[2022-10-28] MEDS: ATORVASTATIN CA 40 MG TABLET (FP) PO SCH (21:33)
[2022-10-28] MEDS ORDERED: SENNOSIDES/DOCUSATE COMBO (SENNA PLUS) TABLET (UD) PO ONE (21:38)
[2022-10-29] MEDS: HEPARIN NA (PORCINE) 5,000 UNITS/ML 1ML VIAL SQ SCH ×3 (06:15→22:07)
[2022-10-29] MEDS: FUROSEMIDE 40 MG/4 ML INJECTABLE VIAL IVPUSH SCH ×2 (06:16→13:39)
[2022-10-29] MEDS: CALCIUM ACETATE 667 MG CAPSULE (FP) PO SCH ×3 (08:20→17:12)
[2022-10-29] MEDS ORDERED: SODIUM PHOSPHATE/NA BIPHOS 133 ML ENEMA RC ONE (09:02)
[2022-10-29] MEDS: VITAMIN B COMP W-C 1 EA TABLET (NEPHRO-VITE) PO SCH (09:13)
[2022-10-29] MEDS: CARVEDILOL 6.25 MG TABLET (FP) PO SCH ×2 (09:13→22:07)
[2022-10-29] MEDS: POLYETHYLENE GLYCOL (HEALTHYLAX) 3350 17 GM PACKET PO SCH ×3 (09:13→22:08)
[2022-10-29] MEDS: PANTOPRAZOLE 40 MG TABLET PO SCH (09:14)
[2022-10-29] MEDS: SENNOSIDES 8.6MG TABLET (FP) PO SCH ×2 (09:14→22:09)
[2022-10-29] MEDS: SODIUM BICARBONATE 650 MG TABLET PO SCH ×2 (09:14→22:07)
[2022-10-29] MEDS: DOCUSATE SODIUM 100 MG CAPSULE (FP) PO SCH ×2 (09:14→22:08)
[2022-10-29 10:09] LABS: BASO % 0.2 % (0-2.0); EOS % 0.8 % (0-4.5); HEMATOCRIT 27.2 % (32.4-45.2); HEMOGLOBIN 8.7 GM/dL (10.7-15.3); LYMPH % 6.2 % (8-40); MCH 30.3 pg (25.7-33.7); MCHC 31.9 g/dl (32.0-36.0); MEAN CELL VOLUME 94.9 fl (80-96); MEAN PLT VOLUME 8.9 fl (7.5-11.1); MONO % 4.4 % (3.8-10.2); NEUT % 88.4 % (42.8-82.8); PLATELET COUNT 201 10^3/uL (134-434); RBC 2.87 M/mm3 (3.60-5.2); RDW 18.6 % (11.6-15.6); WHITE BLOOD COUNT 6.8 K/mm3 (4.0-10.0)
[2022-10-29 10:25] LABS: CHLORIDE 107 mmol/L (98-107); SODIUM 141 mmol/L (136-145)
[2022-10-29 10:26] LABS: CALCIUM 8.7 mg/dL (8.5-10.1)
[2022-10-29 10:27] LABS: ANION GAP 13 MMOL/L (8-16); CO2 21 mmol/L (21-32); GLUCOSE,RANDOM 85 mg/dL (74-106); MAGNESIUM 1.9 mg/dL (1.8-2.4)
[2022-10-29 10:30] LABS: SGOT/AST 19 U/L (15-37); SGPT/ALT 19 U/L (13-61)
[2022-10-29 10:32] LABS: BILIRUBIN,TOTAL 0.4 mg/dL (0.2-1); TOT PROT 6.5 g/dl (6.4-8.2)
[2022-10-29 10:33] LABS: ALBUMIN 2.6 g/dl (3.4-5.0); ALK PHOS 94 U/L (45-117); BLOOD UREA NITROGEN 104.2 mg/dL (7-18); CREATININE 8.1 mg/dL (0.55-1.3)
[2022-10-29] MEDS: ATORVASTATIN CA 40 MG TABLET (FP) PO SCH (22:07)
[2022-10-30] MEDS: POLYETHYLENE GLYCOL (HEALTHYLAX) 3350 17 GM PACKET PO SCH ×4 (06:46→22:35)
[2022-10-30] MEDS: HEPARIN NA (PORCINE) 5,000 UNITS/ML 1ML VIAL SQ SCH (06:51)
[2022-10-30] MEDS: FUROSEMIDE 40 MG/4 ML INJECTABLE VIAL IVPUSH SCH ×2 (06:51→14:43)
[2022-10-30] MEDS: CALCIUM ACETATE 667 MG CAPSULE (FP) PO SCH ×3 (10:36→17:20)
[2022-10-30] MEDS: DOCUSATE SODIUM 100 MG CAPSULE (FP) PO SCH ×3 (10:38→22:32)
[2022-10-30] MEDS: PANTOPRAZOLE 40 MG TABLET PO SCH (10:38)
[2022-10-30] MEDS: SODIUM BICARBONATE 650 MG TABLET PO SCH ×2 (10:38→22:25)
[2022-10-30] MEDS: VITAMIN B COMP W-C 1 EA TABLET (NEPHRO-VITE) PO SCH (10:38)
[2022-10-30] MEDS: CARVEDILOL 6.25 MG TABLET (FP) PO SCH ×2 (10:38→22:25)
[2022-10-30] MEDS: SENNOSIDES 8.6MG TABLET (FP) PO SCH ×3 (10:39→22:35)
[2022-10-30 11:15] LABS: BASO % 0.4 % (0-2.0); HEMOGLOBIN 7.9 GM/dL (10.7-15.3); LYMPH % 9.7 % (8-40); MCH 29.7 pg (25.7-33.7); MCHC 31.5 g/dl (32.0-36.0); MEAN CELL VOLUME 94.3 fl (80-96); MEAN PLT VOLUME 9.5 fl (7.5-11.1); MONO % 7.4 % (3.8-10.2); NEUT % 81.5 % (42.8-82.8); PLATELET COUNT 186 10^3/uL (134-434); RBC 2.65 M/mm3 (3.60-5.2); RDW 18.2 % (11.6-15.6); WHITE BLOOD COUNT 4.7 K/mm3 (4.0-10.0)
[2022-10-30 11:41] LABS: CHLORIDE 109 mmol/L (98-107); SODIUM 140 mmol/L (136-145)
[2022-10-30 11:47] LABS: CALCIUM 8.1 mg/dL (8.5-10.1)
[2022-10-30 11:48] LABS: ALBUMIN 2.1 g/dl (3.4-5.0); ANION GAP 12 MMOL/L (8-16); CO2 19 mmol/L (21-32); GLUCOSE,RANDOM 79 mg/dL (74-106); MAGNESIUM 1.8 mg/dL (1.8-2.4)
[2022-10-30 11:49] LABS: INR 1.15 (0.83-1.09); PROTHROMBIN TIME (PATIENT) 13.3 SEC (9.7-13.0)
[2022-10-30] MEDS ORDERED: SODIUM CHLORIDE 250 ML IV PRN (11:49)
[2022-10-30 11:51] LABS: ACTIVATED PTT 31.4 SECONDS (25.2-36.5); PHOSPHOROUS 7.3 mg/dL (2.5-4.9); SGOT/AST 20 U/L (15-37); SGPT/ALT 17 U/L (13-61)
[2022-10-30 11:52] LABS: BILIRUBIN,TOTAL 0.4 mg/dL (0.2-1); TOT PROT 5.4 g/dl (6.4-8.2)
[2022-10-30 11:54] LABS: ALK PHOS 76 U/L (45-117)
[2022-10-30 12:15] LABS: BLOOD UREA NITROGEN 110.2 mg/dL (7-18); CREATININE 8.1 mg/dL (0.55-1.3)
[2022-10-30] MEDS: ATORVASTATIN CA 40 MG TABLET (FP) PO SCH (22:25)
[2022-10-31] MEDS: POLYETHYLENE GLYCOL (HEALTHYLAX) 3350 17 GM PACKET PO SCH ×3 (06:50→22:34)
[2022-10-31] MEDS: FUROSEMIDE 40 MG/4 ML INJECTABLE VIAL IVPUSH SCH ×2 (06:50→14:32)
[2022-10-31 10:05] LABS: HEMATOCRIT 24.8 % (32.4-45.2); MCH 30.3 pg (25.7-33.7); MCHC 32.4 g/dl (32.0-36.0); MEAN CELL VOLUME 93.3 fl (80-96); PLATELET COUNT 183 10^3/uL (134-434); RBC 2.65 M/mm3 (3.60-5.2); RDW 18.1 % (11.6-15.6); WHITE BLOOD COUNT 4.9 K/mm3 (4.0-10.0)
[2022-10-31 10:11] LABS: CHLORIDE 108 mmol/L (98-107); SODIUM 138 mmol/L (136-145)
[2022-10-31 10:17] LABS: CALCIUM 7.8 mg/dL (8.5-10.1)
[2022-10-31 10:18] LABS: ALBUMIN 2.1 g/dl (3.4-5.0); ANION GAP 7 MMOL/L (8-16); CO2 23 mmol/L (21-32); GLUCOSE,RANDOM 79 mg/dL (74-106); MAGNESIUM 1.7 mg/dL (1.8-2.4)
[2022-10-31 10:20] LABS: SGOT/AST 28 U/L (15-37); SGPT/ALT 21 U/L (13-61)
[2022-10-31 10:21] LABS: PHOSPHOROUS 7.1 mg/dL (2.5-4.9)
[2022-10-31 10:22] LABS: BILIRUBIN,TOTAL 0.2 mg/dL (0.2-1); TOT PROT 5.6 g/dl (6.4-8.2)
[2022-10-31 10:23] LABS: ALK PHOS 95 U/L (45-117)
[2022-10-31] MEDS: CARVEDILOL 6.25 MG TABLET (FP) PO SCH ×2 (10:35→22:12)
[2022-10-31] MEDS: PANTOPRAZOLE 40 MG TABLET PO SCH (10:35)
[2022-10-31] MEDS: CALCIUM ACETATE 667 MG CAPSULE (FP) PO SCH ×3 (10:38→17:11)
[2022-10-31] MEDS: DOCUSATE SODIUM 100 MG CAPSULE (FP) PO SCH ×2 (10:38→22:34)
[2022-10-31] MEDS: SODIUM BICARBONATE 650 MG TABLET PO SCH ×2 (10:38→22:12)
[2022-10-31] MEDS: VITAMIN B COMP W-C 1 EA TABLET (NEPHRO-VITE) PO SCH (10:38)
[2022-10-31] MEDS: SENNOSIDES 8.6MG TABLET (FP) PO SCH ×2 (10:38→22:34)
[2022-10-31 10:51] LABS: BLOOD UREA NITROGEN 104.1 mg/dL (7-18)
[2022-10-31] MEDS ORDERED: LIDOCAINE HCL 1%, 10 MG/ML (20ML VIAL) ONE (15:23)
[2022-10-31] MEDS ORDERED: MIDAZOLAM HCL 2 MG/2 ML SINGLE DOSE VIAL ONE (16:55)
[2022-10-31] MEDS ORDERED: KETAMINE HCL 500 MG/10 ML VIAL ONE (16:57)
[2022-10-31] MEDS ORDERED: ceFAZolin SODIUM 1 GM VIAL IVPB ONE (17:09)
[2022-10-31] MEDS ORDERED: LIDOCAINE HCL 1%, 10 MG/ML (50 mL VIAL) INF ONE (17:10)
[2022-10-31] MEDS ORDERED: SODIUM CHLORIDE 250 ML IV PRN (18:26)
[2022-10-31] MEDS ORDERED: ACETAMINOPHEN 325 MG TABLET (FP) PO PRN (18:26)
[2022-10-31] MEDS: ATORVASTATIN CA 40 MG TABLET (FP) PO SCH (22:11)
[2022-11-01] MEDS: MELATONIN 5 MG TABLETS PO PRN ×2 (01:48→21:33)
[2022-11-01] MEDS: FUROSEMIDE 40 MG/4 ML INJECTABLE VIAL IVPUSH SCH ×2 (07:00→13:39)
[2022-11-01] MEDS: POLYETHYLENE GLYCOL (HEALTHYLAX) 3350 17 GM PACKET PO SCH ×3 (07:40→21:34)
[2022-11-01] MEDS: CALCIUM ACETATE 667 MG CAPSULE (FP) PO SCH ×3 (09:08→17:35)
[2022-11-01] MEDS: PANTOPRAZOLE 40 MG TABLET PO SCH (09:08)
[2022-11-01] MEDS: SENNOSIDES 8.6MG TABLET (FP) PO SCH ×2 (09:09→21:33)
[2022-11-01] MEDS: VITAMIN B COMP W-C 1 EA TABLET (NEPHRO-VITE) PO SCH (09:09)
[2022-11-01] MEDS: DOCUSATE SODIUM 100 MG CAPSULE (FP) PO SCH ×2 (09:09→21:34)
[2022-11-01] MEDS: SODIUM BICARBONATE 650 MG TABLET PO SCH ×2 (09:09→21:33)
[2022-11-01 10:30] LABS: HEMATOCRIT 23.6 % (32.4-45.2); HEMOGLOBIN 7.4 GM/dL (10.7-15.3); MCH 29.7 pg (25.7-33.7); MCHC 31.6 g/dl (32.0-36.0); MEAN PLT VOLUME 9.4 fl (7.5-11.1); PLATELET COUNT 170 10^3/uL (134-434); RBC 2.51 M/mm3 (3.60-5.2); RDW 18.3 % (11.6-15.6); WHITE BLOOD COUNT 6.4 K/mm3 (4.0-10.0)
[2022-11-01 10:52] LABS: CHLORIDE 110 mmol/L (98-107); SODIUM 140 mmol/L (136-145)
[2022-11-01 11:03] LABS: ANION GAP 8 MMOL/L (8-16); CALCIUM 7.2 mg/dL (8.5-10.1); CO2 22 mmol/L (21-32); GLUCOSE,RANDOM 89 mg/dL (74-106); MAGNESIUM 1.7 mg/dL (1.8-2.4)
[2022-11-01 11:06] LABS: PHOSPHOROUS 7.5 mg/dL (2.5-4.9)
[2022-11-01] MEDS: CARVEDILOL 6.25 MG TABLET (FP) PO SCH ×2 (11:10→21:34)
[2022-11-01 11:13] LABS: BLOOD UREA NITROGEN 104.8 mg/dL (7-18); CREATININE 8.2 mg/dL (0.55-1.3)
[2022-11-01] MEDS: HEPARIN NA (PORCINE) 5,000 UNITS/ML 1ML VIAL SQ SCH ×2 (11:29→21:34)
[2022-11-01] MEDS ORDERED: ACETAMINOPHEN 325 MG TABLET (FP) PO PRN (12:26)
[2022-11-01] MEDS ORDERED: oxyCODONE HCL 5 MG TABLET PO PRN (12:27)
[2022-11-01] MEDS ORDERED: MAGNESIUM SULF 50% (8.12 MEQ/2 ML-1 GM VIAL) IVPB ONE (13:11)
[2022-11-01] MEDS: ATORVASTATIN CA 40 MG TABLET (FP) PO SCH (21:33)
[2022-11-02] MEDS: POLYETHYLENE GLYCOL (HEALTHYLAX) 3350 17 GM PACKET PO SCH ×3 (08:43→22:05)
[2022-11-02] MEDS: FUROSEMIDE 40 MG/4 ML INJECTABLE VIAL IVPUSH SCH ×2 (08:43→14:59)
[2022-11-02] MEDS: VITAMIN B COMP W-C 1 EA TABLET (NEPHRO-VITE) PO SCH (09:08)
[2022-11-02] MEDS: PANTOPRAZOLE 40 MG TABLET PO SCH (09:08)
[2022-11-02] MEDS: CARVEDILOL 6.25 MG TABLET (FP) PO SCH ×2 (09:08→22:06)
[2022-11-02] MEDS: SODIUM BICARBONATE 650 MG TABLET PO SCH (09:08)
[2022-11-02] MEDS: CALCIUM ACETATE 667 MG CAPSULE (FP) PO SCH ×3 (09:08→17:25)
[2022-11-02] MEDS: SENNOSIDES 8.6MG TABLET (FP) PO SCH ×2 (09:08→22:05)
[2022-11-02] MEDS: HEPARIN NA (PORCINE) 5,000 UNITS/ML 1ML VIAL SQ SCH ×2 (09:09→22:06)
[2022-11-02 10:00] LABS: BASO % 0.6 % (0-2.0); HEMOGLOBIN 8.1 GM/dL (10.7-15.3); LYMPH % 18.5 % (8-40); MCH 29.9 pg (25.7-33.7); MCHC 32.2 g/dl (32.0-36.0); MEAN PLT VOLUME 9.1 fl (7.5-11.1); MONO % 11.6 % (3.8-10.2); NEUT % 67.3 % (42.8-82.8); PLATELET COUNT 171 10^3/uL (134-434); RBC 2.69 M/mm3 (3.60-5.2); RDW 17.9 % (11.6-15.6); WHITE BLOOD COUNT 6.6 K/mm3 (4.0-10.0)
[2022-11-02 10:20] LABS: ALBUMIN 2.3 g/dl (3.4-5.0); CALCIUM 7.6 mg/dL (8.5-10.1); MAGNESIUM 1.9 mg/dL (1.8-2.4)
[2022-11-02 10:21] LABS: BLOOD UREA NITROGEN 80.3 mg/dL (7-18)
[2022-11-02 10:23] LABS: CREATININE 6.7 mg/dL (0.55-1.3); PHOSPHOROUS 5.8 mg/dL (2.5-4.9)
[2022-11-02 10:25] LABS: BILIRUBIN,TOTAL 0.3 mg/dL (0.2-1); TOT PROT 5.7 g/dl (6.4-8.2)
[2022-11-02] MEDS: DOCUSATE SODIUM 100 MG CAPSULE (FP) PO SCH ×2 (10:37→22:05)
[2022-11-02] MEDS ORDERED: SODIUM CHLORIDE 250 ML IV PRN (14:16)
[2022-11-02] MEDS: MELATONIN 5 MG TABLETS PO PRN (22:05)
[2022-11-02] MEDS: ATORVASTATIN CA 40 MG TABLET (FP) PO SCH (22:05)
[2022-11-03] MEDS ORDERED: MELATONIN 5 MG TABLETS PO ONE (02:02)
[2022-11-03] MEDS: POLYETHYLENE GLYCOL (HEALTHYLAX) 3350 17 GM PACKET PO SCH ×3 (07:01→22:15)
[2022-11-03] MEDS: FUROSEMIDE 40 MG/4 ML INJECTABLE VIAL IVPUSH SCH ×2 (07:03→13:47)
[2022-11-03] MEDS: ALBUTEROL SO4 0.083% IH SOL 2.5 MG/3 ML VIAL.NEB. NEB PRN ×2 (07:42→23:25)
[2022-11-03] MEDS: CALCIUM ACETATE 667 MG CAPSULE (FP) PO SCH ×3 (08:07→17:32)
[2022-11-03] MEDS: HEPARIN NA (PORCINE) 5,000 UNITS/ML 1ML VIAL SQ SCH ×2 (09:10→22:15)
[2022-11-03] MEDS: VITAMIN B COMP W-C 1 EA TABLET (NEPHRO-VITE) PO SCH (09:11)
[2022-11-03] MEDS: CARVEDILOL 6.25 MG TABLET (FP) PO SCH ×2 (09:11→22:15)
[2022-11-03] MEDS: PANTOPRAZOLE 40 MG TABLET PO SCH (09:11)
[2022-11-03] MEDS: SENNOSIDES 8.6MG TABLET (FP) PO SCH ×2 (09:11→22:16)
[2022-11-03] MEDS: DOCUSATE SODIUM 100 MG CAPSULE (FP) PO SCH ×2 (09:12→22:15)
[2022-11-03 09:18] LABS: HEMATOCRIT 25.9 % (32.4-45.2); HEMOGLOBIN 8.3 GM/dL (10.7-15.3); MCH 29.8 pg (25.7-33.7); MEAN CELL VOLUME 93.4 fl (80-96); MEAN PLT VOLUME 9.4 fl (7.5-11.1); PLATELET COUNT 172 10^3/uL (134-434); RBC 2.77 M/mm3 (3.60-5.2); RDW 17.7 % (11.6-15.6); WHITE BLOOD COUNT 6.4 K/mm3 (4.0-10.0)
[2022-11-03 09:33] LABS: ALBUMIN 2.3 g/dl (3.4-5.0); BLOOD UREA NITROGEN 85.8 mg/dL (7-18); MAGNESIUM 1.9 mg/dL (1.8-2.4)
[2022-11-03 09:36] LABS: CREATININE 6.9 mg/dL (0.55-1.3); PHOSPHOROUS 6.2 mg/dL (2.5-4.9)
[2022-11-03 09:38] LABS: BILIRUBIN,TOTAL 0.3 mg/dL (0.2-1)
[2022-11-03] MEDS: HEPARIN NA (PORCINE) 5,000 UNITS/ML 1ML VIAL IVPUSH SCH ×3 (10:43→12:14)
[2022-11-03] MEDS ORDERED: MELATONIN 5 MG TABLETS PO PRN (22:00)
[2022-11-03] MEDS ORDERED: MIRTAZAPINE 15 MG TABLET (FP) PO SCH (22:00)
[2022-11-03] MEDS: ATORVASTATIN CA 40 MG TABLET (FP) PO SCH (22:15)
[2022-11-03] MEDS: ALPRAZolam 1 MG TABLET PO PRN (22:16)
[2022-11-03] MEDS: MELATONIN 5 MG TABLETS PO PRN (22:29)
[2022-11-04] MEDS: FUROSEMIDE 40 MG/4 ML INJECTABLE VIAL IVPUSH SCH ×2 (05:49→14:14)
[2022-11-04] MEDS: POLYETHYLENE GLYCOL (HEALTHYLAX) 3350 17 GM PACKET PO SCH ×3 (05:49→21:51)
[2022-11-04] MEDS: CALCIUM ACETATE 667 MG CAPSULE (FP) PO SCH ×3 (08:48→17:14)
[2022-11-04] MEDS: DOCUSATE SODIUM 100 MG CAPSULE (FP) PO SCH ×2 (09:48→21:50)
[2022-11-04] MEDS: SENNOSIDES 8.6MG TABLET (FP) PO SCH ×2 (09:48→21:50)
[2022-11-04] MEDS: VITAMIN B COMP W-C 1 EA TABLET (NEPHRO-VITE) PO SCH (09:48)
[2022-11-04] MEDS: CARVEDILOL 6.25 MG TABLET (FP) PO SCH ×2 (09:48→21:50)
[2022-11-04] MEDS: PANTOPRAZOLE 40 MG TABLET PO SCH (09:48)
[2022-11-04] MEDS: HEPARIN NA (PORCINE) 5,000 UNITS/ML 1ML VIAL SQ SCH ×2 (09:48→21:50)
[2022-11-04] MEDS ORDERED: hydrALAZINE HCL 10 MG TABLET PO ONE (10:34)
[2022-11-04] MEDS: hydrALAZINE HCL 10 MG TABLET PO SCH ×2 (14:07→21:50)
[2022-11-04] MEDS: ISOSORBIDE DINITRATE 5 MG TABLET PO SCH (14:07)
[2022-11-04 14:08] LABS: HEMATOCRIT 26.9 % (32.4-45.2); HEMOGLOBIN 8.5 GM/dL (10.7-15.3); MCHC 31.7 g/dl (32.0-36.0); MEAN CELL VOLUME 94.8 fl (80-96); MEAN PLT VOLUME 9.6 fl (7.5-11.1); PLATELET COUNT 151 10^3/uL (134-434); RBC 2.84 M/mm3 (3.60-5.2); RDW 17.6 % (11.6-15.6)
[2022-11-04 14:17] LABS: CALCIUM 8.1 mg/dL (8.5-10.1)
[2022-11-04 14:18] LABS: BLOOD UREA NITROGEN 62.9 mg/dL (7-18); MAGNESIUM 1.8 mg/dL (1.8-2.4)
[2022-11-04 14:21] LABS: CREATININE 5.7 mg/dL (0.55-1.3); PHOSPHOROUS 5.8 mg/dL (2.5-4.9)
[2022-11-04] MEDS: ALBUTEROL SO4 0.083% IH SOL 2.5 MG/3 ML VIAL.NEB. NEB PRN (18:43)
[2022-11-04] MEDS: ALPRAZolam 1 MG TABLET PO PRN (21:50)
[2022-11-04] MEDS: ATORVASTATIN CA 40 MG TABLET (FP) PO SCH (21:50)
[2022-11-05] MEDS: FUROSEMIDE 40 MG/4 ML INJECTABLE VIAL IVPUSH SCH ×2 (06:40→14:09)
[2022-11-05] MEDS: hydrALAZINE HCL 10 MG TABLET PO SCH ×3 (06:43→21:57)
[2022-11-05] MEDS: POLYETHYLENE GLYCOL (HEALTHYLAX) 3350 17 GM PACKET PO SCH ×3 (06:43→21:57)
[2022-11-05] MEDS: CALCIUM ACETATE 667 MG CAPSULE (FP) PO SCH ×3 (08:15→17:55)
[2022-11-05] MEDS: ISOSORBIDE DINITRATE 5 MG TABLET PO SCH ×2 (08:17→13:09)
[2022-11-05] MEDS: CARVEDILOL 6.25 MG TABLET (FP) PO SCH ×2 (09:14→21:57)
[2022-11-05] MEDS: ALPRAZolam 1 MG TABLET PO PRN (09:14)
[2022-11-05] MEDS: DOCUSATE SODIUM 100 MG CAPSULE (FP) PO SCH ×2 (09:14→22:02)
[2022-11-05] MEDS: SENNOSIDES 8.6MG TABLET (FP) PO SCH ×2 (09:15→21:57)
[2022-11-05] MEDS: PANTOPRAZOLE 40 MG TABLET PO SCH (09:15)
[2022-11-05] MEDS: HEPARIN NA (PORCINE) 5,000 UNITS/ML 1ML VIAL SQ SCH ×2 (09:16→21:57)
[2022-11-05] MEDS: VITAMIN B COMP W-C 1 EA TABLET (NEPHRO-VITE) PO SCH (09:40)
[2022-11-05 10:46] LABS: HEMATOCRIT 26.3 % (32.4-45.2); HEMOGLOBIN 8.4 GM/dL (10.7-15.3); MCH 30.4 pg (25.7-33.7); MEAN CELL VOLUME 94.9 fl (80-96); MEAN PLT VOLUME 9.4 fl (7.5-11.1); PLATELET COUNT 180 10^3/uL (134-434); RBC 2.77 M/mm3 (3.60-5.2); WHITE BLOOD COUNT 7.2 K/mm3 (4.0-10.0)
[2022-11-05 10:55] LABS: BLOOD UREA NITROGEN 64.8 mg/dL (7-18)
[2022-11-05] MEDS ORDERED: ALPRAZolam 0.25 MG TABLET PO PRN (10:57)
[2022-11-05 10:59] LABS: MAGNESIUM 1.8 mg/dL (1.8-2.4)
[2022-11-05] MEDS: ALBUTEROL SO4 0.083% IH SOL 2.5 MG/3 ML VIAL.NEB. NEB PRN (14:28)
[2022-11-05] MEDS: ATORVASTATIN CA 40 MG TABLET (FP) PO SCH (21:57)
[2022-11-05] MEDS: MELATONIN 5 MG TABLETS PO PRN (21:58)
[2022-11-06 04:44] VITALS: RESP 18
[2022-11-06] MEDS: FUROSEMIDE 40 MG TABLET (FP) PO SCH ×2 (06:47→15:21)
[2022-11-06] MEDS: POLYETHYLENE GLYCOL (HEALTHYLAX) 3350 17 GM PACKET PO SCH ×3 (06:47→22:40)
[2022-11-06] MEDS: hydrALAZINE HCL 10 MG TABLET PO SCH ×3 (06:47→22:40)
[2022-11-06] MEDS: CALCIUM ACETATE 667 MG CAPSULE (FP) PO SCH ×3 (08:46→17:51)
[2022-11-06] MEDS: ISOSORBIDE DINITRATE 5 MG TABLET PO SCH ×2 (08:47→15:23)
[2022-11-06] MEDS: VITAMIN B COMP W-C 1 EA TABLET (NEPHRO-VITE) PO SCH (09:47)
[2022-11-06] MEDS: HEPARIN NA (PORCINE) 5,000 UNITS/ML 1ML VIAL SQ SCH ×2 (09:47→22:41)
[2022-11-06] MEDS: CARVEDILOL 6.25 MG TABLET (FP) PO SCH ×2 (09:47→22:40)
[2022-11-06] MEDS: PANTOPRAZOLE 40 MG TABLET PO SCH (09:47)
[2022-11-06] MEDS: DOCUSATE SODIUM 100 MG CAPSULE (FP) PO SCH ×2 (09:47→22:40)
[2022-11-06] MEDS: SENNOSIDES 8.6MG TABLET (FP) PO SCH ×2 (09:47→22:40)
[2022-11-06] MEDS ORDERED: ALBUTEROL SO4 2.5/IPRATROPIUM 0.5 INH SOL 3 ML VIAL.NEB. NEB ONE (10:09)
[2022-11-06 11:59] LABS: ARTERIAL BLD GAS O2 SATURATION 90.5 % (95-98); ARTERIAL BLOOD GAS BASE EXCESS -0.4 mmol/L (-2-2); ARTERIAL BLOOD GAS PO2 65.2 mmHg (80-100); ARTERIAL BLOOD GAS pH 7.304 (7.350-7.450)
[2022-11-06 12:03] LABS: ALLENS TEST POSITIVE
[2022-11-06] MEDS ORDERED: SODIUM CHLORIDE 250 ML IV PRN (12:31)
[2022-11-06] MEDS ORDERED: HEPARIN NA (PORCINE) 5,000 UNITS/ML 1ML VIAL IVPUSH ONE (12:45)
[2022-11-06 12:59] LABS: HEMATOCRIT 24.4 % (32.4-45.2); HEMOGLOBIN 7.7 GM/dL (10.7-15.3); MCH 29.9 pg (25.7-33.7); MCHC 31.6 g/dl (32.0-36.0); MEAN CELL VOLUME 94.8 fl (80-96); MEAN PLT VOLUME 9.2 fl (7.5-11.1); PLATELET COUNT 183 10^3/uL (134-434); RBC 2.58 M/mm3 (3.60-5.2); RDW 17.8 % (11.6-15.6); WHITE BLOOD COUNT 7.9 K/mm3 (4.0-10.0)
[2022-11-06 13:23] LABS: CALCIUM 8.6 mg/dL (8.5-10.1)
[2022-11-06 13:24] LABS: BLOOD UREA NITROGEN 67.1 mg/dL (7-18)
[2022-11-06 13:27] LABS: CREATININE 6.4 mg/dL (0.55-1.3)
[2022-11-06] MEDS ORDERED: EPOETIN ALFA-EPBX 10,000 UNIT/ML VIAL SQ ONE (14:00)
[2022-11-06 18:41] LABS: ALLENS TEST POSITIVE; ARTERIAL BLD GAS O2 SATURATION 98.3 % (95-98); ARTERIAL BLOOD GAS BASE EXCESS 1.4 mmol/L (-2-2); ARTERIAL BLOOD GAS PO2 124.5 mmHg (80-100); ARTERIAL BLOOD GAS pH 7.357 (7.350-7.450)
[2022-11-06 18:42] LABS: VENT MODE BIPAP; VENT RATE 12
[2022-11-06] MEDS: ATORVASTATIN CA 40 MG TABLET (FP) PO SCH (22:40)
[2022-11-07] MEDS: POLYETHYLENE GLYCOL (HEALTHYLAX) 3350 17 GM PACKET PO SCH ×3 (06:47→21:57)
[2022-11-07] MEDS: FUROSEMIDE 40 MG TABLET (FP) PO SCH ×3 (06:47→14:03)
[2022-11-07] MEDS: hydrALAZINE HCL 10 MG TABLET PO SCH ×4 (06:47→21:57)
[2022-11-07] MEDS: CALCIUM ACETATE 667 MG CAPSULE (FP) PO SCH ×3 (08:13→17:46)
[2022-11-07] MEDS: ISOSORBIDE DINITRATE 5 MG TABLET PO SCH ×2 (08:15→13:23)
[2022-11-07 09:20] LABS: HEMATOCRIT 25.2 % (32.4-45.2); MCH 30.5 pg (25.7-33.7); MCHC 31.8 g/dl (32.0-36.0); MEAN CELL VOLUME 95.9 fl (80-96); MEAN PLT VOLUME 8.7 fl (7.5-11.1); PLATELET COUNT 151 10^3/uL (134-434); RBC 2.62 M/mm3 (3.60-5.2); RDW 17.7 % (11.6-15.6); WHITE BLOOD COUNT 8.5 K/mm3 (4.0-10.0)
[2022-11-07 09:48] LABS: CALCIUM 8.3 mg/dL (8.5-10.1)
[2022-11-07 09:49] LABS: BLOOD UREA NITROGEN 45.8 mg/dL (7-18)
[2022-11-07 09:51] LABS: PHOSPHOROUS 5.5 mg/dL (2.5-4.9)
[2022-11-07 09:52] LABS: CREATININE 4.9 mg/dL (0.55-1.3)
[2022-11-07] MEDS: PANTOPRAZOLE 40 MG TABLET PO SCH (10:13)
[2022-11-07] MEDS: HEPARIN NA (PORCINE) 5,000 UNITS/ML 1ML VIAL SQ SCH ×2 (10:13→21:57)
[2022-11-07] MEDS: VITAMIN B COMP W-C 1 EA TABLET (NEPHRO-VITE) PO SCH (10:13)
[2022-11-07] MEDS: SENNOSIDES 8.6MG TABLET (FP) PO SCH ×2 (10:13→21:57)
[2022-11-07] MEDS: CARVEDILOL 6.25 MG TABLET (FP) PO SCH ×2 (10:13→21:57)
[2022-11-07] MEDS: DOCUSATE SODIUM 100 MG CAPSULE (FP) PO SCH ×2 (10:13→21:57)
[2022-11-07] MEDS: ATORVASTATIN CA 40 MG TABLET (FP) PO SCH (21:57)
[2022-11-08] MEDS: FUROSEMIDE 40 MG TABLET (FP) PO SCH ×2 (05:34→13:30)
[2022-11-08] MEDS: POLYETHYLENE GLYCOL (HEALTHYLAX) 3350 17 GM PACKET PO SCH ×3 (05:34→21:37)
[2022-11-08] MEDS: hydrALAZINE HCL 10 MG TABLET PO SCH ×3 (05:34→21:37)
[2022-11-08] MEDS ORDERED: EPOETIN ALFA-EPBX 10,000 UNIT/ML VIAL IVPUSH ONE (08:00)
[2022-11-08] MEDS ORDERED: HEPARIN NA (PORCINE) 5,000 UNITS/ML 1ML VIAL IVPUSH ONE (08:00)
[2022-11-08] MEDS ORDERED: SODIUM CHLORIDE 250 ML IV PRN (08:00)
[2022-11-08] MEDS: CALCIUM ACETATE 667 MG CAPSULE (FP) PO SCH ×3 (08:45→17:02)
[2022-11-08] MEDS: ISOSORBIDE DINITRATE 5 MG TABLET PO SCH ×2 (08:45→13:30)
[2022-11-08] MEDS: DOCUSATE SODIUM 100 MG CAPSULE (FP) PO SCH ×2 (09:56→21:37)
[2022-11-08] MEDS: PANTOPRAZOLE 40 MG TABLET PO SCH (09:57)
[2022-11-08] MEDS: SENNOSIDES 8.6MG TABLET (FP) PO SCH ×2 (09:57→21:37)
[2022-11-08] MEDS: VITAMIN B COMP W-C 1 EA TABLET (NEPHRO-VITE) PO SCH (09:57)
[2022-11-08] MEDS: CARVEDILOL 6.25 MG TABLET (FP) PO SCH ×2 (09:57→21:37)
[2022-11-08] MEDS: HEPARIN NA (PORCINE) 5,000 UNITS/ML 1ML VIAL SQ SCH ×2 (09:57→21:37)
[2022-11-08 10:24] LABS: HEMATOCRIT 24.4 % (32.4-45.2); HEMOGLOBIN 7.6 GM/dL (10.7-15.3); MCH 29.7 pg (25.7-33.7); MCHC 31.1 g/dl (32.0-36.0); MEAN CELL VOLUME 95.7 fl (80-96); MEAN PLT VOLUME 8.9 fl (7.5-11.1); PLATELET COUNT 167 10^3/uL (134-434); RBC 2.55 M/mm3 (3.60-5.2); RDW 18.1 % (11.6-15.6)
[2022-11-08 11:26] LABS: BLOOD UREA NITROGEN 51.7 mg/dL (7-18); CALCIUM 8.2 mg/dL (8.5-10.1); MAGNESIUM 1.8 mg/dL (1.8-2.4)
[2022-11-08 11:29] LABS: CREATININE 5.3 mg/dL (0.55-1.3); PHOSPHOROUS 5.4 mg/dL (2.5-4.9)
[2022-11-08 12:31] VITALS: BP 148/77; PULSE 82; TEMP 98
[2022-11-08] MEDS: ATORVASTATIN CA 40 MG TABLET (FP) PO SCH (21:37)
== END 2022-11-08 23:42 | DRG 194 ==
LOC: JER 21:18 → JERBED 10-14 01:18 → JICU 10-14 03:59 → J4W 10-16 20:09 → J6S 10-27 14:59
PROVIDERS: ADMIT Internal Medicine Pulmonary Disease; ATTEND Internal Medicine
PROC: 0TB13ZX Excision of Left Kidney, Percutaneous Approach, Diagnostic (ICD-10-PCS; 2022-10-23)
PROC: 05HM33Z Insertion of Infusion Device into Right Internal Jugular Vein, Percutaneous Approach (ICD-10-PCS; principal; 2022-11-03)
PROC: 5A1D70Z Performance of Urinary Filtration, Intermittent, Less than 6 Hours Per Day (ICD-10-PCS; 2022-11-08)
DX: I13.2 Hypertensive heart and chronic kidney disease with heart failure and with stage 5 chronic kidney disease, or end stage renal disease (principal); D69.6 Thrombocytopenia, unspecified; E87.0 Hyperosmolality and hypernatremia; E87.20 Acidosis, unspecified; N17.9 Acute kidney failure, unspecified; N18.6 End stage renal disease; E86.0 Dehydration; E66.01 Morbid (severe) obesity due to excess calories; E83.39 Other disorders of phosphorus metabolism; E87.5 Hyperkalemia; I27.20 Pulmonary hypertension, unspecified; L97.109 Non-pressure chronic ulcer of unspecified thigh with unspecified severity; Z68.42 Body mass index [BMI] 45.0-49.9, adult; E16.2 Hypoglycemia, unspecified; E78.5 Hyperlipidemia, unspecified; F32.A Depression, unspecified; I42.9 Cardiomyopathy, unspecified; J44.9 Chronic obstructive pulmonary disease, unspecified; N39.0 Urinary tract infection, site not specified; Z99.2 Dependence on renal dialysis; I50.23 Acute on chronic systolic (congestive) heart failure; B96.20 Unspecified Escherichia coli [E. coli] as the cause of diseases classified elsewhere; B96.1 Klebsiella pneumoniae [K. pneumoniae] as the cause of diseases classified elsewhere; L89.302 Pressure ulcer of unspecified buttock, stage 2; F41.9 Anxiety disorder, unspecified; D64.9 Anemia, unspecified
CPT/HCPCS: 0241U-QW; 36415; 36600; 50200; 70450-TC; 71045-TC-FY; 72125-TC; 72170-TC-FY; 74176-TC; 76000-TC-FY; 76775-TC; 78452-TC; 80048; 80053; 80061; 81003; 82043; 82150; 82436; 82465; 82550; 82553; 82570; 82803; 82962; 83010; 83036; 83516; 83520; 83605; 83615; 83690; 83735; 83880; 84100; 84133; 84155; 84165; 84300; 84484; 84540; 85025; 85027; 85610; 85730; 86038; 86160; 86225; 86256; 86705; 86803; 87086; 87186; 87340; 87517; 88300-TC; 88329; 93005; 93010; 93017; 93306-TC; 93970-TC; 93971; 94010; 94640; 94660; 94760; 97116-GP; 97162-GP; 99285-25; A9502; C1750; C9803-CS; J1644; J2785; Q5106; U0003; U0005

== ENCOUNTER 2023-06-02 10:03 | Inpatient (IN) | payer OTHER ==
[2023-06-02] MEDS ORDERED: ALBUTEROL SULFATE 0.021% (0.63 MG/3 ML) VIAL.NEB NEB ONE (11:04)
[2023-06-02 11:51] LABS: BASO % 0.9 % (0-2.0); EOS % 1.6 % (0-4.5); HEMATOCRIT 33.4 % (32.4-45.2); HEMOGLOBIN 10.8 GM/dL (10.7-15.3); LYMPH % 38.6 % (8-40); MCH 32.1 pg (25.7-33.7); MCHC 32.5 g/dl (32.0-36.0); MEAN CELL VOLUME 98.9 fl (80-96); MEAN PLT VOLUME 8.6 fl (7.5-11.1); MONO % 9.3 % (3.8-10.2); NEUT % 49.6 % (42.8-82.8); PLATELET COUNT 154 10^3/uL (134-434); RBC 3.38 M/mm3 (3.60-5.2); RDW 15.6 % (11.6-15.6); WHITE BLOOD COUNT 7.6 K/mm3 (4.0-10.0)
[2023-06-02 12:47] LABS: CHLORIDE 103 mmol/L (98-107); POTASSIUM 5.3 mmol/L (3.5-5.1); SODIUM 139 mmol/L (136-145)
[2023-06-02 12:49] LABS: ALBUMIN 3.6 g/dl (3.4-5.0); ANION GAP 6 MMOL/L (8-16); BLOOD UREA NITROGEN 36.6 mg/dL (7-18); CALCIUM 9.7 mg/dL (8.5-10.1); CO2 30 mmol/L (21-32); MAGNESIUM 2.1 mg/dL (1.8-2.4)
[2023-06-02 12:50] LABS: GLUCOSE,RANDOM 87 mg/dL (74-106)
[2023-06-02 12:52] LABS: SGOT/AST 16 U/L (15-37)
[2023-06-02 12:54] LABS: BILIRUBIN,TOTAL 0.4 mg/dL (0.2-1); TOT PROT 7.8 g/dl (6.4-8.2)
[2023-06-02 12:55] LABS: ALK PHOS 110 U/L (45-117)
[2023-06-02 13:03] LABS: CREATININE 8.9 mg/dL (0.55-1.3); SGPT/ALT 15 U/L (13-61)
[2023-06-02] MEDS ORDERED: CALCIUM GLUCONATE 10% - 1,000 MG/10 ML VIAL IVPUSH ONE (13:47)
[2023-06-02] MEDS ORDERED: ALBUTEROL SO4 0.5 % INH SOLN 2.5 MG/0.5 ML VIAL.NEB. NEB ONE (13:47)
[2023-06-02] MEDS ORDERED: CALCIUM GLUCONATE 10% - 1,000 MG/10 ML VIAL ONE (16:13)
[2023-06-02] MEDS ORDERED: CALCIUM ACETATE 667 MG CAPSULE (FP) PO SCH (17:30)
[2023-06-02 17:32] VITALS: BMI 33.5
[2023-06-02] MEDS ORDERED: SODIUM CHLORIDE 250 ML IV PRN (17:39)
[2023-06-02 18:19] VITALS: TEMP 98.5
[2023-06-02 19:07] VITALS: RESP 18
[2023-06-02] MEDS ORDERED: FAMOTIDINE 20 MG TABLET PO SCH (19:15)
[2023-06-02 20:09] VITALS: BP 101/77; PULSE 88
[2023-06-02] MEDS ORDERED: CARVEDILOL 6.25 MG TABLET (FP) PO SCH (22:00)
[2023-06-02] MEDS ORDERED: SENNOSIDES 8.6MG TABLET (FP) PO SCH (22:00)
[2023-06-02] MEDS ORDERED: hydrALAZINE HCL 10 MG TABLET PO SCH (22:00)
[2023-06-02] MEDS ORDERED: DOCUSATE SODIUM 100 MG CAPSULE (FP) PO SCH (22:00)
[2023-06-02] MEDS ORDERED: ATORVASTATIN CA 40 MG TABLET (FP) PO SCH (22:00)
[2023-06-03] MEDS ORDERED: FUROSEMIDE 40 MG TABLET (FP) PO SCH (06:00)
[2023-06-03] MEDS ORDERED: ISOSORBIDE DINITRATE 5 MG TABLET PO SCH (08:00)
== END 2023-06-02 21:00 | disposition home or self-care (01) | DRG 698 ==
LOC: JER 10:03 → JERBED 14:09 → J4S 16:36
PROVIDERS: ADMIT Internal Medicine; ATTEND Internal Medicine
PROC: 5A1D70Z Performance of Urinary Filtration, Intermittent, Less than 6 Hours Per Day (ICD-10-PCS; principal; 2023-06-02)
DX: T82.42XA Displacement of vascular dialysis catheter, initial encounter (principal); N18.6 End stage renal disease; I12.0 Hypertensive chronic kidney disease with stage 5 chronic kidney disease or end stage renal disease; Y83.8 Other surgical procedures as the cause of abnormal reaction of the patient, or of later complication, without mention of misadventure at the time of the procedure; Z99.2 Dependence on renal dialysis
CPT/HCPCS: 36415; 71045-TC-FY; 80053; 83735; 85025; 86704; 86705; 86803; 86850; 86900; 86901; 87340; 87517; 93005; 93010; 99285-25

== ENCOUNTER 2024-04-24 10:30 | Inpatient (IN) | payer OTHER ==
[2024-04-24] MEDS ORDERED: ACETAMINOPHEN INJECTION 100 ML IVPB ONE ×2 (12:01→18:52)
[2024-04-24 12:03] LABS: BASO % 0.4 % (0-2.0); EOS % 0.3 % (0-4.5); HEMATOCRIT 30.7 % (32.4-45.2); HEMOGLOBIN 10.2 GM/dL (10.7-15.3); LYMPH % 8.3 % (8-40); MCH 30.9 pg (25.7-33.7); MCHC 33.2 g/dl (32.0-36.0); MEAN CELL VOLUME 92.9 fl (80-96); MEAN PLT VOLUME 9.8 fl (7.5-11.1); MONO % 11.7 % (3.8-10.2); NEUT % 79.3 % (42.8-82.8); PLATELET COUNT 127 10^3/uL (134-434); RDW 16.1 % (11.6-15.6); WHITE BLOOD COUNT 19.1 K/mm3 (4.0-10.0)
[2024-04-24] MEDS: ACETAMINOPHEN 1000 MG/100 ML BAG IVPB ONE ×2 (12:06→18:32)
[2024-04-24 13:16] LABS: BLOOD UREA NITROGEN 16.5 mg/dL (7-18); CREATININE 4.8 mg/dL (0.55-1.3); POTASSIUM 3.5 mmol/L (3.5-5.1)
[2024-04-24 13:17] LABS: ALBUMIN 2.6 g/dl (3.4-5.0); BILIRUBIN,TOTAL 0.8 mg/dL (0.2-1); CALCIUM 8.3 mg/dL (8.5-10.1); TOT PROT 6.9 g/dl (6.4-8.2)
[2024-04-24 13:23] LABS: MAGNESIUM 1.9 mg/dL (1.8-2.4)
[2024-04-24] MEDS ORDERED: LIDOCAINE HCL 1%, 10 MG/ML (20ML VIAL) ONE (19:48)
[2024-04-24] MEDS: HEPARIN NA (PORCINE) 5,000 UNITS/ML 1ML VIAL SQ SCH (22:03)
[2024-04-24] MEDS: ATORVASTATIN CA 40 MG TABLET (FP) PO SCH (22:04)
[2024-04-25] MEDS: ACETAMINOPHEN 1000 MG/100 ML BAG IVPB PRN (00:25)
[2024-04-25 10:57] LABS: HEMATOCRIT 27.6 % (32.4-45.2); HEMOGLOBIN 9.1 GM/dL (10.7-15.3); MCH 31.2 pg (25.7-33.7); MCHC 33.1 g/dl (32.0-36.0); MEAN CELL VOLUME 94.1 fl (80-96); MEAN PLT VOLUME 9.7 fl (7.5-11.1); PLATELET COUNT 152 10^3/uL (134-434); RBC 2.93 M/mm3 (3.60-5.2); RDW 15.3 % (11.6-15.6); WHITE BLOOD COUNT 21.1 K/mm3 (4.0-10.0)
[2024-04-25 11:16] LABS: POTASSIUM 3.8 mmol/L (3.5-5.1)
[2024-04-25 11:20] LABS: ALBUMIN 2.3 g/dl (3.4-5.0); CALCIUM 8.1 mg/dL (8.5-10.1)
[2024-04-25 11:21] LABS: BLOOD UREA NITROGEN 33.3 mg/dL (7-18); MAGNESIUM 2.2 mg/dL (1.8-2.4)
[2024-04-25 11:24] LABS: PHOSPHOROUS 3.4 mg/dL (2.5-4.9)
[2024-04-25 11:25] LABS: BILIRUBIN,TOTAL 0.9 mg/dL (0.2-1); TOT PROT 6.4 g/dl (6.4-8.2)
[2024-04-25 11:27] LABS: ANISOCYTOSIS 1+; MACROCYTOSIS 1+; TARGET CELLS 1+
[2024-04-25 11:28] LABS: CREATININE 7.4 mg/dL (0.55-1.3)
[2024-04-25] MEDS: VANCOMYCIN/WATER FOR INJ (PEG) 1,000 MG/200 ML BAG IVPB ONE (13:23)
[2024-04-25] MEDS: LIDOCAINE 5% TOPICAL PATCH TP SCH (13:52)
[2024-04-25] MEDS ORDERED: ACETAMINOPHEN 325 MG TABLET (FP) ONE (16:38)
[2024-04-25] MEDS: ACETAMINOPHEN 325 MG TABLET (FP) PO PRN (16:40)
[2024-04-25] MEDS ORDERED: SENNOSIDES 8.6MG TABLET (FP) PO PRN (17:10)
[2024-04-25] MEDS: CALCIUM ACETATE 667 MG CAPSULE (FP) PO SCH (18:12)
[2024-04-25] MEDS: LIDOCAINE PATCH REMOVAL MC SCH (21:55)
[2024-04-25] MEDS: LORazepam 2 MG/ML SDV VIAL IVPUSH ONE (22:52)
[2024-04-26] MEDS: MELATONIN 5 MG TABLETS PO SCH (00:25)
[2024-04-26] MEDS: hydrALAZINE HCL 50 MG TABLET (FP) PO SCH (00:25)
[2024-04-26] MEDS: ISOSORBIDE DINITRATE 5 MG TABLET PO SCH (08:39)
[2024-04-26 08:55] LABS: HEMATOCRIT 27.1 % (32.4-45.2); HEMOGLOBIN 9.2 GM/dL (10.7-15.3); MCH 31.5 pg (25.7-33.7); MCHC 33.8 g/dl (32.0-36.0); MEAN PLT VOLUME 9.8 fl (7.5-11.1); PLATELET COUNT 195 10^3/uL (134-434); RBC 2.91 M/mm3 (3.60-5.2); RDW 15.6 % (11.6-15.6); WHITE BLOOD COUNT 21.2 K/mm3 (4.0-10.0)
[2024-04-26 09:19] LABS: CHLORIDE 100 mmol/L (98-107); SODIUM 135 mmol/L (136-145)
[2024-04-26 09:25] LABS: CALCIUM 8.4 mg/dL (8.5-10.1)
[2024-04-26 09:26] LABS: ANION GAP 10 mmol/L (4-13); BLOOD UREA NITROGEN 47.1 mg/dL (7-18); CO2 25 mmol/L (21-32); GLUCOSE,RANDOM 76 mg/dL (74-106); MAGNESIUM 2.1 mg/dL (1.8-2.4)
[2024-04-26 09:29] LABS: PHOSPHOROUS 4.1 mg/dL (2.5-4.9)
[2024-04-26 11:21] LABS: CREATININE 9.6 mg/dL (0.55-1.3)
[2024-04-26] MEDS: CEFTRIAXONE 1 GM in DEXTROSE 5%-WATER - 50 ML IVPB SCH (14:30)
[2024-04-26] MEDS: PIPERACILLIN/TAZOB 2.25 GM 2.25 GM in DEXTROSE 5%-WATER - 50 ML IVPB SCH (14:31)
[2024-04-27 09:16] LABS: BASO % 0.8 % (0-2.0); EOS % 0.3 % (0-4.5); HEMATOCRIT 28.7 % (32.4-45.2); HEMOGLOBIN 9.6 GM/dL (10.7-15.3); LYMPH % 13.2 % (8-40); MCH 31.2 pg (25.7-33.7); MCHC 33.4 g/dl (32.0-36.0); MEAN CELL VOLUME 93.6 fl (80-96); MEAN PLT VOLUME 9.6 fl (7.5-11.1); MONO % 6.9 % (3.8-10.2); NEUT % 78.8 % (42.8-82.8); PLATELET COUNT 250 10^3/uL (134-434); RBC 3.07 M/mm3 (3.60-5.2); RDW 15.7 % (11.6-15.6); WHITE BLOOD COUNT 19.9 K/mm3 (4.0-10.0)
[2024-04-27] MEDS ORDERED: PIPERACILLIN/TAZOBACTAM 2.25 GM VIAL IVPB ONE (09:18)
[2024-04-27 09:44] LABS: CHLORIDE 96 mmol/L (98-107); POTASSIUM 4.4 mmol/L (3.5-5.1); SODIUM 132 mmol/L (136-145)
[2024-04-27 09:57] LABS: ANION GAP 12 mmol/L (4-13); BLOOD UREA NITROGEN 64.4 mg/dL (7-18); CO2 25 mmol/L (21-32); GLUCOSE,RANDOM 83 mg/dL (74-106); MAGNESIUM 2.1 mg/dL (1.8-2.4)
[2024-04-27 10:01] LABS: CREATININE 11.1 mg/dL (0.55-1.3); PHOSPHOROUS 3.9 mg/dL (2.5-4.9)
[2024-04-27 12:54] VITALS: BMI 24.0
[2024-04-27] MEDS ORDERED: SODIUM CHLORIDE 250 ML IV PRN (21:59)
[2024-04-28 10:47] LABS: CHLORIDE 97 mmol/L (98-107); POTASSIUM 4.8 mmol/L (3.5-5.1); SODIUM 133 mmol/L (136-145)
[2024-04-28 10:49] LABS: BASO % 0.5 % (0-2.0); EOS % 0.6 % (0-4.5); HEMATOCRIT 26.6 % (32.4-45.2); HEMOGLOBIN 8.8 GM/dL (10.7-15.3); LYMPH % 9.1 % (8-40); MCH 31.3 pg (25.7-33.7); MCHC 33.1 g/dl (32.0-36.0); MEAN CELL VOLUME 94.4 fl (80-96); MEAN PLT VOLUME 9.3 fl (7.5-11.1); MONO % 8.9 % (3.8-10.2); NEUT % 80.9 % (42.8-82.8); PLATELET COUNT 253 10^3/uL (134-434); RBC 2.81 M/mm3 (3.60-5.2); RDW 15.3 % (11.6-15.6); WHITE BLOOD COUNT 15.6 K/mm3 (4.0-10.0)
[2024-04-28 10:53] LABS: CALCIUM 9.2 mg/dL (8.5-10.1)
[2024-04-28 10:54] LABS: ALBUMIN 2.1 g/dl (3.4-5.0); ANION GAP 13 mmol/L (4-13); CO2 23 mmol/L (21-32); GLUCOSE,RANDOM 80 mg/dL (74-106)
[2024-04-28 10:57] LABS: CREATININE 12.7 mg/dL (0.55-1.3); PHOSPHOROUS 4.4 mg/dL (2.5-4.9); SGOT/AST 20 U/L (15-37); SGPT/ALT 14 U/L (13-61)
[2024-04-28 10:58] LABS: BILIRUBIN,TOTAL 0.6 mg/dL (0.2-1)
[2024-04-28 10:59] LABS: TOT PROT 6.4 g/dl (6.4-8.2)
[2024-04-28 11:00] LABS: ALK PHOS 90 U/L (45-117)
[2024-04-28 11:07] LABS: HEMATOCRIT 25.9 % (32.4-45.2); HEMOGLOBIN 8.8 GM/dL (10.7-15.3); MCH 31.4 pg (25.7-33.7); MCHC 34.1 g/dl (32.0-36.0); MEAN CELL VOLUME 92.1 fl (80-96); MEAN PLT VOLUME 9.4 fl (7.5-11.1); PLATELET COUNT 252 10^3/uL (134-434); RBC 2.82 M/mm3 (3.60-5.2); RDW 15.6 % (11.6-15.6); WHITE BLOOD COUNT 15.6 K/mm3 (4.0-10.0)
[2024-04-28] MEDS ORDERED: PIPERACILLIN/TAZOBACTAM 2.25 GM VIAL IVPB ONE (17:44)
[2024-04-28] MEDS ORDERED: HEPARIN NA (PORCINE) 5,000 UNITS/ML 1ML VIAL IVPUSH PRN (20:14)
[2024-04-28] MEDS: CEFTAROLINE FOSAMIL ACETATE 200 MG in DEXTROSE 5%-WATER - 100 ML IVPB SCH (21:51)
[2024-04-28] MEDS: PANTOPRAZOLE 40 MG TABLET PO ONE (21:54)
[2024-04-28] MEDS: MAG HYDROX/AL HYDROX/SIMETH 30 ML UNIT-DOSE CUP PO ONE (22:07)
[2024-04-29] MEDS: HEPARIN INFUSION - 25,000 UNITS/500 ML INFUS.BAG IVPB SCH ×2 (00:01→00:38)
[2024-04-29] MEDS ORDERED: HEPARIN NA (PORCINE) 5,000 UNITS/ML 1ML VIAL IVPUSH PRN ×3 (00:27→00:38)
[2024-04-29] MEDS: HEPARIN NA (PORCINE) 5,000 UNITS/ML 1ML VIAL IVPUSH ONE ×2 (00:49→03:03)
[2024-04-29 10:29] LABS: HEMATOCRIT 25.3 % (32.4-45.2); HEMOGLOBIN 8.5 GM/dL (10.7-15.3); MCH 31.5 pg (25.7-33.7); MCHC 33.5 g/dl (32.0-36.0); MEAN CELL VOLUME 93.9 fl (80-96); MEAN PLT VOLUME 9.4 fl (7.5-11.1); PLATELET COUNT 264 10^3/uL (134-434); RBC 2.69 M/mm3 (3.60-5.2); RDW 15.7 % (11.6-15.6); WHITE BLOOD COUNT 15.6 K/mm3 (4.0-10.0)
[2024-04-29 10:50] LABS: CHLORIDE 95 mmol/L (98-107); POTASSIUM 5.3 mmol/L (3.5-5.1); SODIUM 131 mmol/L (136-145)
[2024-04-29 10:52] LABS: GLUCOSE,RANDOM 78 mg/dL (74-106)
[2024-04-29 10:54] LABS: CALCIUM 8.9 mg/dL (8.5-10.1)
[2024-04-29 10:55] LABS: ANION GAP 14 mmol/L (4-13); CO2 23 mmol/L (21-32)
[2024-04-29] MEDS: VANCOMYCIN/WATER FOR INJ (PEG) 1,000 MG/200 ML BAG IVPB SCH (10:55)
[2024-04-29 10:57] LABS: SGPT/ALT 12 U/L (13-61)
[2024-04-29 10:58] LABS: PHOSPHOROUS 4.6 mg/dL (2.5-4.9); SGOT/AST 21 U/L (15-37)
[2024-04-29 10:59] LABS: BILIRUBIN,TOTAL 0.6 mg/dL (0.2-1)
[2024-04-29 11:00] LABS: ALK PHOS 86 U/L (45-117); TOT PROT 6.5 g/dl (6.4-8.2)
[2024-04-29 11:01] LABS: CREATININE 14.5 mg/dL (0.55-1.3)
[2024-04-29 12:50] LABS: INR 1.11 (0.83-1.09); PROTHROMBIN TIME (PATIENT) 12.5 SEC (9.7-13.0)
[2024-04-29 12:53] LABS: ACTIVATED PTT 31.8 SECONDS (25.2-36.5)
[2024-04-29] MEDS ORDERED: LIDOCAINE HCL 1%, 10 MG/ML (20ML VIAL) ONE (13:29)
[2024-04-30] MEDS: diphenhydrAMINE HCL 25 MG CAPSULE (FP) PO ONE (01:04)
[2024-04-30] MEDS: HEPARIN NA (PORCINE) 5,000 UNITS/ML 1ML VIAL IVPUSH ONE (01:57)
[2024-04-30] MEDS: HEPARIN INFUSION - 25,000 UNITS/500 ML INFUS.BAG IVPB SCH (01:58)
[2024-04-30] MEDS ORDERED: HEPARIN NA (PORCINE) 5,000 UNITS/ML 1ML VIAL IVPUSH PRN ×3 (02:00)
[2024-04-30 09:33] LABS: HEMOGLOBIN 8.1 GM/dL (10.7-15.3); MCH 31.3 pg (25.7-33.7); MCHC 33.8 g/dl (32.0-36.0); MEAN CELL VOLUME 92.5 fl (80-96); MEAN PLT VOLUME 9.1 fl (7.5-11.1); PLATELET COUNT 237 10^3/uL (134-434); RBC 2.59 M/mm3 (3.60-5.2); RDW 15.8 % (11.6-15.6); WHITE BLOOD COUNT 12.7 K/mm3 (4.0-10.0)
[2024-04-30 09:46] LABS: CHLORIDE 99 mmol/L (98-107); POTASSIUM 4.2 mmol/L (3.5-5.1); SODIUM 137 mmol/L (136-145)
[2024-04-30 10:08] LABS: CALCIUM 8.6 mg/dL (8.5-10.1)
[2024-04-30 10:09] LABS: ALBUMIN 1.9 g/dl (3.4-5.0); ANION GAP 10 mmol/L (4-13); CO2 28 mmol/L (21-32); GLUCOSE,RANDOM 83 mg/dL (74-106)
[2024-04-30 10:12] LABS: BLOOD UREA NITROGEN 39.9 mg/dL (7-18); CREATININE 8.6 mg/dL (0.55-1.3); PHOSPHOROUS 4.3 mg/dL (2.5-4.9); SGOT/AST 22 U/L (15-37); SGPT/ALT 11 U/L (13-61)
[2024-04-30 10:13] LABS: TOT PROT 6.2 g/dl (6.4-8.2)
[2024-04-30 10:14] LABS: ALK PHOS 77 U/L (45-117); BILIRUBIN,TOTAL 0.5 mg/dL (0.2-1); MAGNESIUM 1.8 mg/dL (1.8-2.4)
[2024-04-30] MEDS ORDERED: SODIUM CHLORIDE 250 ML IV PRN (11:43)
[2024-04-30] MEDS: HEPARIN NA (PORCINE) 5,000 UNITS/ML 1ML VIAL IVPUSH PRN (15:19)
[2024-04-30] MEDS: hydrOXYzine PAMOATE 25 MG CAPSULE (FP) PO ONE (23:18)
[2024-05-01] MEDS: diphenhydrAMINE HCL 25 MG CAPSULE (FP) PO ONE (02:08)
[2024-05-01 10:17] LABS: POTASSIUM 3.5 mmol/L (3.5-5.1)
[2024-05-01 10:19] LABS: CALCIUM 8.1 mg/dL (8.5-10.1)
[2024-05-01 10:20] LABS: ALBUMIN 1.8 g/dl (3.4-5.0)
[2024-05-01 10:23] LABS: CREATININE 6.5 mg/dL (0.55-1.3)
[2024-05-01 10:24] LABS: BILIRUBIN,TOTAL 0.5 mg/dL (0.2-1)
[2024-05-01 10:25] LABS: TOT PROT 6.2 g/dl (6.4-8.2)
[2024-05-01] MEDS: EPOETIN ALFA-EPBX 10,000 UNIT/ML VIAL IVPUSH ONE (12:08)
[2024-05-01] MEDS: DAPTOMYCIN 700 MG in SODIUM CHLORIDE 50 ML IVPB ONE (18:03)
[2024-05-01] MEDS: diphenhydrAMINE HCL 25 MG CAPSULE (FP) PO PRN (22:47)
[2024-05-02] MEDS: ISOSORBIDE DINITRATE 5 MG TABLET PO SCH (08:19)
[2024-05-02 09:15] LABS: MCH 31.3 pg (25.7-33.7); MCHC 33.2 g/dl (32.0-36.0); MEAN CELL VOLUME 94.4 fl (80-96); MEAN PLT VOLUME 8.6 fl (7.5-11.1); PLATELET COUNT 245 10^3/uL (134-434); RBC 2.55 M/mm3 (3.60-5.2); RDW 15.7 % (11.6-15.6); WHITE BLOOD COUNT 13.2 K/mm3 (4.0-10.0)
[2024-05-02 09:41] LABS: CHLORIDE 101 mmol/L (98-107); POTASSIUM 4.1 mmol/L (3.5-5.1); SODIUM 137 mmol/L (136-145)
[2024-05-02 09:46] LABS: CALCIUM 9.2 mg/dL (8.5-10.1)
[2024-05-02 09:47] LABS: ALBUMIN 1.7 g/dl (3.4-5.0); ANION GAP 8 mmol/L (4-13); BLOOD UREA NITROGEN 28.7 mg/dL (7-18); CO2 29 mmol/L (21-32); GLUCOSE,RANDOM 107 mg/dL (74-106)
[2024-05-02 09:49] LABS: MAGNESIUM 1.8 mg/dL (1.8-2.4)
[2024-05-02 09:52] LABS: SGOT/AST 30 U/L (15-37); SGPT/ALT 15 U/L (13-61)
[2024-05-02 09:53] LABS: PHOSPHOROUS 4.3 mg/dL (2.5-4.9); TOT PROT 6.1 g/dl (6.4-8.2)
[2024-05-02 09:55] LABS: ALK PHOS 68 U/L (45-117); BILIRUBIN,TOTAL 0.5 mg/dL (0.2-1)
[2024-05-02] MEDS: hydrALAZINE HCL 50 MG TABLET (FP) PO SCH (15:10)
[2024-05-02] MEDS: HEPARIN NA (PORCINE) 5,000 UNITS/ML 1ML VIAL IVPUSH PRN (22:53)
[2024-05-03 04:49] LABS: CHLORIDE 99 mmol/L (98-107); POTASSIUM 4.4 mmol/L (3.5-5.1); SODIUM 136 mmol/L (136-145)
[2024-05-03 04:51] LABS: ALBUMIN 1.7 g/dl (3.4-5.0); CALCIUM 8.6 mg/dL (8.5-10.1)
[2024-05-03 04:52] LABS: ANION GAP 7 mmol/L (4-13); BLOOD UREA NITROGEN 33.2 mg/dL (7-18); CO2 30 mmol/L (21-32); GLUCOSE,RANDOM 89 mg/dL (74-106); MAGNESIUM 1.7 mg/dL (1.8-2.4)
[2024-05-03 04:56] LABS: BILIRUBIN,TOTAL 0.4 mg/dL (0.2-1); PHOSPHOROUS 4.7 mg/dL (2.5-4.9); SGOT/AST 33 U/L (15-37); SGPT/ALT 16 U/L (13-61); TOT PROT 6.1 g/dl (6.4-8.2)
[2024-05-03 04:57] LABS: ALK PHOS 70 U/L (45-117); CREATININE 9.4 mg/dL (0.55-1.3)
[2024-05-03] MEDS: HEPARIN NA (PORCINE) 5,000 UNITS/ML 1ML VIAL IVPUSH PRN (05:28)
[2024-05-03 05:31] LABS: HEMATOCRIT 23.5 % (32.4-45.2); HEMOGLOBIN 7.9 GM/dL (10.7-15.3); MCH 31.4 pg (25.7-33.7); MCHC 33.5 g/dl (32.0-36.0); MEAN CELL VOLUME 93.7 fl (80-96); MEAN PLT VOLUME 9.1 fl (7.5-11.1); PLATELET COUNT 253 10^3/uL (134-434); RDW 15.6 % (11.6-15.6); WHITE BLOOD COUNT 13.1 K/mm3 (4.0-10.0)
[2024-05-03] MEDS: SODIUM ZIRCONIUM CYCLOSILICATE (LOKELMA) 5 GM PACKET PO SCH (16:45)
[2024-05-03] MEDS: DAPTOMYCIN 700 MG in SODIUM CHLORIDE 50 ML IVPB SCH (17:45)
[2024-05-04] MEDS: SODIUM CHLORIDE 1,000 ML IV SCH (06:36)
[2024-05-04 10:37] LABS: HEMATOCRIT 22.7 % (32.4-45.2); HEMOGLOBIN 7.8 GM/dL (10.7-15.3); MCH 31.7 pg (25.7-33.7); MCHC 34.1 g/dl (32.0-36.0); PLATELET COUNT 253 10^3/uL (134-434); RBC 2.45 M/mm3 (3.60-5.2); RDW 15.2 % (11.6-15.6); WHITE BLOOD COUNT 13.6 K/mm3 (4.0-10.0)
[2024-05-04 10:52] LABS: CHLORIDE 94 mmol/L (98-107); POTASSIUM 4.8 mmol/L (3.5-5.1); SODIUM 132 mmol/L (136-145)
[2024-05-04 10:57] LABS: ALBUMIN 1.7 g/dl (3.4-5.0); BLOOD UREA NITROGEN 42.8 mg/dL (7-18); CALCIUM 8.9 mg/dL (8.5-10.1); GLUCOSE,RANDOM 65 mg/dL (74-106)
[2024-05-04 10:58] LABS: ANION GAP 9 mmol/L (4-13); CO2 29 mmol/L (21-32); MAGNESIUM 1.8 mg/dL (1.8-2.4)
[2024-05-04 11:00] LABS: PHOSPHOROUS 6.4 mg/dL (2.5-4.9); SGOT/AST 25 U/L (15-37); SGPT/ALT 18 U/L (13-61)
[2024-05-04 11:01] LABS: BILIRUBIN,TOTAL 0.4 mg/dL (0.2-1); TOT PROT 6.2 g/dl (6.4-8.2)
[2024-05-04 11:03] LABS: ALK PHOS 68 U/L (45-117)
[2024-05-04 11:08] LABS: CREATININE 11.5 mg/dL (0.55-1.3)
[2024-05-04] MEDS: EPOETIN ALFA-EPBX 10,000 UNIT/ML VIAL SQ ONE (14:02)
[2024-05-04] MEDS ORDERED: SODIUM CHLORIDE 250 ML IV PRN (16:11)
[2024-05-05 10:19] LABS: HEMATOCRIT 26.3 % (32.4-45.2); HEMOGLOBIN 8.8 GM/dL (10.7-15.3); MCH 31.1 pg (25.7-33.7); MCHC 33.5 g/dl (32.0-36.0); MEAN CELL VOLUME 93.1 fl (80-96); MEAN PLT VOLUME 8.9 fl (7.5-11.1); PLATELET COUNT 276 10^3/uL (134-434); RBC 2.83 M/mm3 (3.60-5.2); RDW 15.7 % (11.6-15.6); WHITE BLOOD COUNT 14.9 K/mm3 (4.0-10.0)
[2024-05-05 10:53] LABS: CHLORIDE 92 mmol/L (98-107); POTASSIUM 5.2 mmol/L (3.5-5.1); SODIUM 130 mmol/L (136-145)
[2024-05-05 10:56] LABS: ALBUMIN 1.9 g/dl (3.4-5.0); CALCIUM 9.3 mg/dL (8.5-10.1)
[2024-05-05 10:57] LABS: ANION GAP 11 mmol/L (4-13); BLOOD UREA NITROGEN 50.8 mg/dL (7-18); CO2 26 mmol/L (21-32); GLUCOSE,RANDOM 65 mg/dL (74-106); MAGNESIUM 1.7 mg/dL (1.8-2.4)
[2024-05-05 10:59] LABS: SGPT/ALT 17 U/L (13-61)
[2024-05-05 11:00] LABS: PHOSPHOROUS 7.1 mg/dL (2.5-4.9); SGOT/AST 27 U/L (15-37)
[2024-05-05 11:01] LABS: BILIRUBIN,TOTAL 0.4 mg/dL (0.2-1); TOT PROT 7.3 g/dl (6.4-8.2)
[2024-05-05 11:02] LABS: CREATININE 12.7 mg/dL (0.55-1.3)
[2024-05-05 11:03] LABS: ALK PHOS 81 U/L (45-117)
[2024-05-05] MEDS: SODIUM ZIRCONIUM CYCLOSILICATE (LOKELMA) 5 GM PACKET PO SCH ×2 (13:00→21:11)
[2024-05-05] MEDS: MAGNESIUM 2GM/50ML STERILE WATER IVPB IVPB ONE (14:14)
[2024-05-05] MEDS: LIDOCAINE HCL 1%, 10 MG/ML (20ML VIAL) SQ ONE (16:11)
[2024-05-05] MEDS: FUROSEMIDE 100 MG/10 ML INJECTABLE VIAL IVPB SCH (16:12)
[2024-05-05] MEDS: EPOETIN ALFA-EPBX 10,000 UNIT/ML VIAL IVPUSH ONE (18:12)
[2024-05-05] MEDS: FUROSEMIDE 40 MG/4 ML INJECTABLE VIAL IVPB SCH (18:55)
[2024-05-06 00:37] LABS: INR 1.34 (0.83-1.09)
[2024-05-06 09:50] LABS: HEMATOCRIT 22.5 % (32.4-45.2); HEMOGLOBIN 7.5 GM/dL (10.7-15.3); MCH 30.8 pg (25.7-33.7); MCHC 33.3 g/dl (32.0-36.0); MEAN CELL VOLUME 92.6 fl (80-96); MEAN PLT VOLUME 9.3 fl (7.5-11.1); PLATELET COUNT 210 10^3/uL (134-434); RBC 2.43 M/mm3 (3.60-5.2); RDW 15.5 % (11.6-15.6); WHITE BLOOD COUNT 11.1 K/mm3 (4.0-10.0)
[2024-05-06 10:11] LABS: CHLORIDE 99 mmol/L (98-107); POTASSIUM 4.1 mmol/L (3.5-5.1); SODIUM 137 mmol/L (136-145)
[2024-05-06 10:26] LABS: ALBUMIN 1.6 g/dl (3.4-5.0)
[2024-05-06 10:27] LABS: ANION GAP 9 mmol/L (4-13); CALCIUM 8.6 mg/dL (8.5-10.1); CO2 29 mmol/L (21-32)
[2024-05-06 10:28] LABS: BLOOD UREA NITROGEN 27.4 mg/dL (7-18); GLUCOSE,RANDOM 73 mg/dL (74-106); MAGNESIUM 2.1 mg/dL (1.8-2.4)
[2024-05-06 10:29] LABS: SGOT/AST 22 U/L (15-37); SGPT/ALT 13 U/L (13-61)
[2024-05-06 10:31] LABS: BILIRUBIN,TOTAL 0.7 mg/dL (0.2-1); PHOSPHOROUS 5.2 mg/dL (2.5-4.9); TOT PROT 6.2 g/dl (6.4-8.2)
[2024-05-06 10:32] LABS: ALK PHOS 69 U/L (45-117)
[2024-05-06 11:13] LABS: PLATELET ESTIMATE ADEQUATE
[2024-05-06] MEDS ORDERED: SODIUM CHLORIDE 250 ML IV PRN (13:46)
[2024-05-06] MEDS: EPOETIN ALFA-EPBX 10,000 UNIT/ML VIAL SQ ONE (15:41)
[2024-05-06] MEDS: HEPARIN NA (PORCINE) 5,000 UNITS/ML 1ML VIAL IVPUSH SCH (16:22)
[2024-05-06] MEDS: HEPARIN NA (PORCINE) 5,000 UNITS/ML 1ML VIAL IVPUSH ONE (16:22)
[2024-05-07 11:00] LABS: BASO % 0.9 % (0-2.0); EOS % 0.3 % (0-4.5); HEMATOCRIT 22.7 % (32.4-45.2); HEMOGLOBIN 7.5 GM/dL (10.7-15.3); LYMPH % 19.5 % (8-40); MCH 31.1 pg (25.7-33.7); MEAN CELL VOLUME 94.3 fl (80-96); MEAN PLT VOLUME 8.9 fl (7.5-11.1); MONO % 13.5 % (3.8-10.2); NEUT % 65.8 % (42.8-82.8); PLATELET COUNT 188 10^3/uL (134-434); RBC 2.41 M/mm3 (3.60-5.2); RDW 15.3 % (11.6-15.6); WHITE BLOOD COUNT 11.2 K/mm3 (4.0-10.0)
[2024-05-07 11:22] LABS: POTASSIUM 3.7 mmol/L (3.5-5.1)
[2024-05-07 11:32] LABS: ALBUMIN 1.6 g/dl (3.4-5.0); BLOOD UREA NITROGEN 17.4 mg/dL (7-18); CALCIUM 8.6 mg/dL (8.5-10.1)
[2024-05-07 11:35] LABS: ANISOCYTOSIS 0; MACROCYTOSIS 0
[2024-05-07 11:36] LABS: CREATININE 5.9 mg/dL (0.55-1.3); MAGNESIUM 1.8 mg/dL (1.8-2.4); PHOSPHOROUS 4.2 mg/dL (2.5-4.9)
[2024-05-07 11:37] LABS: BILIRUBIN,TOTAL 0.8 mg/dL (0.2-1); PLATELET ESTIMATE ADEQUATE; TOT PROT 6.4 g/dl (6.4-8.2)
[2024-05-07] MEDS ORDERED: SODIUM CHLORIDE 250 ML IV PRN (13:11)
[2024-05-07] MEDS ORDERED: HEPARIN NA (PORCINE) 5,000 UNITS/ML 1ML VIAL IVPUSH PRN ×2 (13:41→16:19)
[2024-05-07 14:41] LABS: BF WBC & OTHER NUCLEATED CELLS 228 /mm3
[2024-05-07 14:44] LABS: BODY FLUID MACROPHAGES 60 %
[2024-05-07] MEDS: HEPARIN NA (PORCINE) 5,000 UNITS/ML 1ML VIAL IVPUSH PRN (16:52)
[2024-05-07] MEDS: HEPARIN - 25,000 UNIT in SODIUM CHLORIDE 495 ML IV SCH (17:52)
[2024-05-08] MEDS: EPOETIN ALFA-EPBX 4,000 UNIT/ML VIAL SQ ONE (09:14)
[2024-05-08 10:17] LABS: MCH 31.5 pg (25.7-33.7); MCHC 33.4 g/dl (32.0-36.0); MEAN CELL VOLUME 94.2 fl (80-96); MEAN PLT VOLUME 8.9 fl (7.5-11.1); PLATELET COUNT 183 10^3/uL (134-434); RBC 2.55 M/mm3 (3.60-5.2); RDW 15.6 % (11.6-15.6); WHITE BLOOD COUNT 10.1 K/mm3 (4.0-10.0)
[2024-05-08 10:23] LABS: CHLORIDE 97 mmol/L (98-107); POTASSIUM 3.8 mmol/L (3.5-5.1); SODIUM 137 mmol/L (136-145)
[2024-05-08 10:30] LABS: ANION GAP 10 mmol/L (4-13); BLOOD UREA NITROGEN 25.4 mg/dL (7-18); CALCIUM 9.7 mg/dL (8.5-10.1); CO2 30 mmol/L (21-32); GLUCOSE,RANDOM 87 mg/dL (74-106)
[2024-05-08 10:34] LABS: CREATININE 7.7 mg/dL (0.55-1.3)
[2024-05-08] MEDS ORDERED: LIDOCAINE HCL 1%, 10 MG/ML (20ML VIAL) ONE (15:57)
[2024-05-08 16:08] LABS: BODY FLUID ALBUMIN 1.9 g/dL (Not Estab.)
[2024-05-08] MEDS ORDERED: PROPOFOL 20 ML ONE (17:17)
[2024-05-08] MEDS: ceFAZolin SODIUM 1 GM VIAL IVPB ONE (17:18)
[2024-05-08] MEDS: LIDOCAINE HCL 1%, 10 MG/ML (20ML VIAL) SQ ONE (17:43)
[2024-05-08] MEDS ORDERED: HEPARIN INFUSION - 25,000 UNITS/500 ML INFUS.BAG IVPB ONE (18:00)
[2024-05-08] MEDS ORDERED: SENNOSIDES 8.6MG TABLET (FP) PO PRN (18:01)
[2024-05-08] MEDS ORDERED: HEPARIN NA (PORCINE) 5,000 UNITS/ML 1ML VIAL ONE (18:01)
[2024-05-08] MEDS: HEPARIN NA (PORCINE) 5,000 UNITS/ML 1ML VIAL IVPUSH PRN (18:03)
[2024-05-08] MEDS: HEPARIN INFUSION - 25,000 UNITS/500 ML INFUS.BAG IVPB SCH (18:07)
[2024-05-08] MEDS: CEFTAROLINE FOSAMIL ACETATE 200 MG in DEXTROSE 5%-WATER - 100 ML IVPB SCH (20:18)
[2024-05-08] MEDS: ATORVASTATIN CA 40 MG TABLET (FP) PO SCH (21:21)
[2024-05-08] MEDS: diphenhydrAMINE HCL 25 MG CAPSULE (FP) PO PRN (21:21)
[2024-05-08] MEDS: ACETAMINOPHEN 325 MG TABLET (FP) PO PRN (21:21)
[2024-05-08] MEDS: hydrALAZINE HCL 50 MG TABLET (FP) PO SCH (21:29)
[2024-05-08] MEDS: MELATONIN 5 MG TABLETS PO SCH (21:29)
[2024-05-08] MEDS: LIDOCAINE PATCH REMOVAL MC SCH (23:37)
[2024-05-09] MEDS: HEPARIN NA (PORCINE) 5,000 UNITS/ML 1ML VIAL IVPUSH PRN (01:19)
[2024-05-09] MEDS: CALCIUM ACETATE 667 MG CAPSULE (FP) PO SCH (08:38)
[2024-05-09] MEDS: ISOSORBIDE DINITRATE 5 MG TABLET PO SCH (08:38)
[2024-05-09] MEDS: LIDOCAINE 5% TOPICAL PATCH TP SCH (10:20)
[2024-05-09] MEDS: FUROSEMIDE 40 MG/4 ML INJECTABLE VIAL IVPB SCH (11:37)
[2024-05-09] MEDS: DAPTOMYCIN 700 MG in SODIUM CHLORIDE 50 ML IVPB SCH (17:36)
[2024-05-10] MEDS ORDERED: SODIUM CHLORIDE 250 ML IV PRN (07:23)
[2024-05-10 09:06] LABS: BASO % 1.1 % (0-2.0); EOS % 0.3 % (0-4.5); HEMATOCRIT 24.3 % (32.4-45.2); LYMPH % 10.2 % (8-40); MEAN CELL VOLUME 93.9 fl (80-96); MEAN PLT VOLUME 9.1 fl (7.5-11.1); MONO % 6.2 % (3.8-10.2); NEUT % 82.2 % (42.8-82.8); PLATELET COUNT 125 10^3/uL (134-434); RBC 2.59 M/mm3 (3.60-5.2); RDW 15.5 % (11.6-15.6); WHITE BLOOD COUNT 10.2 K/mm3 (4.0-10.0)
[2024-05-10 09:26] LABS: CHLORIDE 100 mmol/L (98-107); POTASSIUM 4.1 mmol/L (3.5-5.1); SODIUM 138 mmol/L (136-145)
[2024-05-10 09:30] LABS: ANION GAP 8 mmol/L (4-13); BLOOD UREA NITROGEN 25.1 mg/dL (7-18); CALCIUM 9.7 mg/dL (8.5-10.1); CO2 30 mmol/L (21-32); GLUCOSE,RANDOM 88 mg/dL (74-106)
[2024-05-10 09:33] LABS: CHLORIDE 100 mmol/L (98-107); POTASSIUM 4.2 mmol/L (3.5-5.1); SODIUM 138 mmol/L (136-145)
[2024-05-10 09:34] LABS: CREATININE 7.8 mg/dL (0.55-1.3)
[2024-05-10 10:05] LABS: ALBUMIN 1.7 g/dl (3.4-5.0); CALCIUM 9.4 mg/dL (8.5-10.1)
[2024-05-10 10:06] LABS: ANION GAP 10 mmol/L (4-13); BLOOD UREA NITROGEN 26.2 mg/dL (7-18); CO2 28 mmol/L (21-32); GLUCOSE,RANDOM 87 mg/dL (74-106); MAGNESIUM 1.9 mg/dL (1.8-2.4)
[2024-05-10 10:08] LABS: SGPT/ALT 11 U/L (13-61)
[2024-05-10 10:09] LABS: CREATININE 7.8 mg/dL (0.55-1.3); PHOSPHOROUS 4.4 mg/dL (2.5-4.9); SGOT/AST 39 U/L (15-37)
[2024-05-10 10:10] LABS: BILIRUBIN,TOTAL 0.3 mg/dL (0.2-1); TOT PROT 6.4 g/dl (6.4-8.2)
[2024-05-10 10:11] LABS: ALK PHOS 67 U/L (45-117)
[2024-05-10] MEDS: EPOETIN ALFA-EPBX 10,000 UNIT/ML VIAL IVPUSH ONE (10:53)
[2024-05-11 08:16] LABS: HEMATOCRIT 23.5 % (32.4-45.2); HEMOGLOBIN 7.7 GM/dL (10.7-15.3); MCHC 32.7 g/dl (32.0-36.0); MEAN CELL VOLUME 94.8 fl (80-96); MEAN PLT VOLUME 9.6 fl (7.5-11.1); PLATELET COUNT 85 10^3/uL (134-434); RBC 2.48 M/mm3 (3.60-5.2); RDW 15.2 % (11.6-15.6); WHITE BLOOD COUNT 8.6 K/mm3 (4.0-10.0)
[2024-05-11 13:25] LABS: INR 1.26 (0.83-1.09); PROTHROMBIN TIME (PATIENT) 14.1 SEC (9.7-13.0)
[2024-05-11 13:28] LABS: ACTIVATED PTT 55.4 SECONDS (25.2-36.5)
[2024-05-12 10:45] LABS: HEMATOCRIT 24.5 % (32.4-45.2); HEMOGLOBIN 7.9 GM/dL (10.7-15.3); MCH 30.5 pg (25.7-33.7); MCHC 32.3 g/dl (32.0-36.0); MEAN CELL VOLUME 94.5 fl (80-96); MEAN PLT VOLUME 9.9 fl (7.5-11.1); PLATELET COUNT 75 10^3/uL (134-434); RBC 2.59 M/mm3 (3.60-5.2); RDW 15.8 % (11.6-15.6); WHITE BLOOD COUNT 8.4 K/mm3 (4.0-10.0)
[2024-05-12 10:48] LABS: BASO % 0.8 % (0-2.0); EOS % 1.4 % (0-4.5); HEMATOCRIT 24.4 % (32.4-45.2); HEMOGLOBIN 7.9 GM/dL (10.7-15.3); LYMPH % 20.7 % (8-40); MCH 30.6 pg (25.7-33.7); MCHC 32.4 g/dl (32.0-36.0); MEAN CELL VOLUME 94.4 fl (80-96); MEAN PLT VOLUME 9.5 fl (7.5-11.1); MONO % 8.1 % (3.8-10.2); PLATELET COUNT 73 10^3/uL (134-434); RBC 2.59 M/mm3 (3.60-5.2); RDW 15.9 % (11.6-15.6); WHITE BLOOD COUNT 8.3 K/mm3 (4.0-10.0)
[2024-05-12 11:10] LABS: CALCIUM 9.3 mg/dL (8.5-10.1)
[2024-05-12 11:13] LABS: BILIRUBIN,TOTAL 0.3 mg/dL (0.2-1); TOT PROT 6.1 g/dl (6.4-8.2)
[2024-05-12 11:15] LABS: ALBUMIN 1.6 g/dl (3.4-5.0); CREATININE 7.2 mg/dL (0.55-1.3)
[2024-05-12] MEDS ORDERED: SODIUM CHLORIDE 250 ML IV PRN (13:17)
[2024-05-13 09:52] LABS: BASO % 0.7 % (0-2.0); EOS % 1.2 % (0-4.5); HEMOGLOBIN 7.2 GM/dL (10.7-15.3); LYMPH % 18.9 % (8-40); MCH 30.9 pg (25.7-33.7); MCHC 32.8 g/dl (32.0-36.0); MEAN CELL VOLUME 94.2 fl (80-96); MEAN PLT VOLUME 9.1 fl (7.5-11.1); MONO % 8.2 % (3.8-10.2); PLATELET COUNT 65 10^3/uL (134-434); RBC 2.34 M/mm3 (3.60-5.2); RDW 15.3 % (11.6-15.6); WHITE BLOOD COUNT 6.8 K/mm3 (4.0-10.0)
[2024-05-13 10:13] LABS: CHLORIDE 96 mmol/L (98-107); POTASSIUM 4.2 mmol/L (3.5-5.1); SODIUM 134 mmol/L (136-145)
[2024-05-13 10:20] LABS: ALBUMIN 1.5 g/dl (3.4-5.0); ANION GAP 8 mmol/L (4-13); BLOOD UREA NITROGEN 41.6 mg/dL (7-18); CO2 30 mmol/L (21-32); GLUCOSE,RANDOM 72 mg/dL (74-106); MAGNESIUM 1.8 mg/dL (1.8-2.4)
[2024-05-13 10:23] LABS: SGOT/AST 129 U/L (15-37); SGPT/ALT 22 U/L (13-61)
[2024-05-13 10:24] LABS: BILIRUBIN,TOTAL 0.3 mg/dL (0.2-1); CREATININE 8.5 mg/dL (0.55-1.3); TOT PROT 6.1 g/dl (6.4-8.2)
[2024-05-13 10:25] LABS: ALK PHOS 69 U/L (45-117)
[2024-05-13] MEDS: EPOETIN ALFA-EPBX 10,000 UNIT/ML VIAL IVPUSH ONE (11:02)
[2024-05-13] MEDS: VANCOMYCIN/WATER FOR INJ (PEG) 1,000 MG/200 ML BAG IVPB ONE (17:34)
[2024-05-14 09:21] LABS: BASO % 0.9 % (0-2.0); EOS % 1.7 % (0-4.5); HEMOGLOBIN 7.2 GM/dL (10.7-15.3); LYMPH % 21.8 % (8-40); MCHC 32.7 g/dl (32.0-36.0); MEAN PLT VOLUME 10.4 fl (7.5-11.1); MONO % 14.7 % (3.8-10.2); NEUT % 60.9 % (42.8-82.8); PLATELET COUNT 77 10^3/uL (134-434); RBC 2.32 M/mm3 (3.60-5.2); RDW 15.7 % (11.6-15.6); WHITE BLOOD COUNT 5.7 K/mm3 (4.0-10.0)
[2024-05-14 09:41] LABS: POTASSIUM 3.9 mmol/L (3.5-5.1)
[2024-05-14 09:49] LABS: ALBUMIN 1.5 g/dl (3.4-5.0)
[2024-05-14 09:51] LABS: BLOOD UREA NITROGEN 20.9 mg/dL (7-18); CREATININE 5.5 mg/dL (0.55-1.3); PHOSPHOROUS 3.7 mg/dL (2.5-4.9)
[2024-05-14 09:54] LABS: CALCIUM 8.6 mg/dL (8.5-10.1); MAGNESIUM 1.7 mg/dL (1.8-2.4)
[2024-05-14 09:56] LABS: BILIRUBIN,TOTAL 0.2 mg/dL (0.2-1); TOT PROT 5.9 g/dl (6.4-8.2)
[2024-05-14] MEDS ORDERED: SODIUM CHLORIDE 250 ML IV PRN (12:07)
[2024-05-14] MEDS: MAGNESIUM OXIDE 400 MG TABLET (FP) PO ONE (15:10)
[2024-05-15] MEDS: VANCOMYCIN/WATER FOR INJ (PEG) 1,000 MG/200 ML BAG IVPB ONE (09:15)
[2024-05-15 10:50] LABS: CALCIUM 9.3 mg/dL (8.5-10.1)
[2024-05-15 10:51] LABS: ALBUMIN 1.5 g/dl (3.4-5.0); BLOOD UREA NITROGEN 28.2 mg/dL (7-18)
[2024-05-15 10:54] LABS: PHOSPHOROUS 4.2 mg/dL (2.5-4.9)
[2024-05-15 10:55] LABS: BILIRUBIN,TOTAL 0.3 mg/dL (0.2-1)
[2024-05-15] MEDS: EPOETIN ALFA-EPBX 10,000 UNIT/ML VIAL IVPUSH ONE (11:50)
[2024-05-15] MEDS: HEPARIN NA (PORCINE) 5,000 UNITS/ML 1ML VIAL IVPUSH ONE (11:51)
[2024-05-15 13:08] VITALS: BP 119/43; PULSE 89; RESP 19; TEMP 98.4
[2024-05-17 17:07] LABS: HLA CLASS 1 ANTIBODY Negative (Negative)
== END 2024-05-15 17:53 | disposition home or self-care (01) | DRG 314 ==
LOC: JER 10:30 → JERBED 15:52 → J5S 21:13
PROVIDERS: ADMIT Internal Medicine; ATTEND Internal Medicine
PROC: 06HY33Z Insertion of Infusion Device into Lower Vein, Percutaneous Approach (ICD-10-PCS; 2024-04-29)
PROC: 0W9930Z Drainage of Right Pleural Cavity with Drainage Device, Percutaneous Approach (ICD-10-PCS; 2024-05-07)
PROC: 0JH63XZ Insertion of Tunneled Vascular Access Device into Chest Subcutaneous Tissue and Fascia, Percutaneous Approach (ICD-10-PCS; principal; 2024-05-08 16:30)
PROC: 5A1D70Z Performance of Urinary Filtration, Intermittent, Less than 6 Hours Per Day (ICD-10-PCS; 2024-05-15)
DX: T80.211A Bloodstream infection due to central venous catheter, initial encounter (principal); A41.02 Sepsis due to Methicillin resistant Staphylococcus aureus; J18.9 Pneumonia, unspecified organism; N18.6 End stage renal disease; J86.9 Pyothorax without fistula; I50.20 Unspecified systolic (congestive) heart failure; I82.C11 Acute embolism and thrombosis of right internal jugular vein; I50.30 Unspecified diastolic (congestive) heart failure; I13.2 Hypertensive heart and chronic kidney disease with heart failure and with stage 5 chronic kidney disease, or end stage renal disease; Y83.9 Surgical procedure, unspecified as the cause of abnormal reaction of the patient, or of later complication, without mention of misadventure at the time of the procedure; D69.6 Thrombocytopenia, unspecified; J45.909 Unspecified asthma, uncomplicated; E78.5 Hyperlipidemia, unspecified; Z99.2 Dependence on renal dialysis
CPT/HCPCS: 0241U-QW; 32557; 36415; 71045-TC-FY; 71046-TC-FY; 71250-TC; 72125-TC; 72128-TC; 72131-TC; 74176-TC; 76000-TC-FY; 80048; 80053; 82042; 82150; 82465; 82542; 82550; 82553; 82945; 83615; 83735; 83986; 84100; 84157; 84478; 85025; 85027; 85610; 85730; 86022; 86704; 86803; 86850; 86900; 86901; 87040; 87070; 87075; 87102; 87116; 87186; 87205; 87206; 87210; 87340; 87517; 88108; 88305-TC; 93306-TC; 93971; 94010; 94760; 94761; 97116-GP; 97161-GP; 99285-25; C1750; G0480; J0131; J0878; J1644; J2997; Q5106

== ENCOUNTER 2024-07-15 08:50 | Inpatient (IN) | payer OTHER ==
[2024-07-15] MEDS ORDERED: ACETAMINOPHEN INJECTION 100 ML ONE ×2 (09:57→20:46)
[2024-07-15] MEDS: SODIUM CHLORIDE 0.9% 500 ML INFUS.BAG IV ONE (10:00)
[2024-07-15] MEDS: ACETAMINOPHEN 1000 MG/100 ML BAG IVPB ONE ×2 (10:00→20:52)
[2024-07-15] MEDS ORDERED: morphine SULFATE 4 MG/ML VIAL ONE (10:24)
[2024-07-15] MEDS ORDERED: dilTIAZem HCL 50 MG/10 ML - 10 ML VIAL ONE (10:24)
[2024-07-15] MEDS: dilTIAZem HCL 50 MG/10 ML - 10 ML VIAL IVPUSH ONE ×3 (10:45→18:51)
[2024-07-15] MEDS: morphine SULFATE 4 MG/ML VIAL IVPUSH ONE (10:46)
[2024-07-15 11:20] LABS: BASO % 0.7 % (0-2.0); EOS % 0.1 % (0-4.5); HEMATOCRIT 34.6 % (32.4-45.2); HEMOGLOBIN 11.1 GM/dL (10.7-15.3); LYMPH % 8.5 % (8-40); MCH 31.2 pg (25.7-33.7); MEAN CELL VOLUME 97.2 fl (80-96); MEAN PLT VOLUME 9.6 fl (7.5-11.1); MONO % 11.7 % (3.8-10.2); PLATELET COUNT 119 10^3/uL (134-434); RBC 3.56 M/mm3 (3.60-5.2); RDW 17.3 % (11.6-15.6); WHITE BLOOD COUNT 15.6 K/mm3 (4.0-10.0)
[2024-07-15 11:41] LABS: CHLORIDE 100 mmol/L (98-107); POTASSIUM 4.3 mmol/L (3.5-5.1); SODIUM 131 mmol/L (136-145)
[2024-07-15 11:43] LABS: ALBUMIN 2.8 g/dl (3.4-5.0); ANION GAP 7 mmol/L (4-13); BLOOD UREA NITROGEN 28.4 mg/dL (7-18); CO2 23 mmol/L (21-32); GLUCOSE,RANDOM 97 mg/dL (74-106)
[2024-07-15 11:46] LABS: SGOT/AST 11 U/L (15-37); SGPT/ALT 10 U/L (13-61)
[2024-07-15 11:47] LABS: CREATININE 7.6 mg/dL (0.55-1.3)
[2024-07-15 11:48] LABS: BILIRUBIN,TOTAL 0.5 mg/dL (0.2-1); TOT PROT 7.2 g/dl (6.4-8.2)
[2024-07-15 11:49] LABS: ALK PHOS 83 U/L (45-117)
[2024-07-15 11:51] LABS: N-TERMINAL BNP 27594.5 pg/ml (5-125)
[2024-07-15] MEDS ORDERED: dilTIAZem HCL 60 MG TABLET ONE (12:10)
[2024-07-15] MEDS: dilTIAZem HCL 30 MG TABLET PO ONE (12:15)
[2024-07-15] MEDS ORDERED: CYCLOBENZAPRINE HCL 5 MG TABLET ONE (13:29)
[2024-07-15] MEDS ORDERED: METOPROLOL TARTRATE 25 MG TABLET (FP) ONE (13:29)
[2024-07-15] MEDS ORDERED: PIPERACILLIN/TAZOB 2.25 GM 2.25 GM/50 ML BAG IVPB ONE (13:29)
[2024-07-15] MEDS ORDERED: VANCOMYCIN 1 GRAM (PRE-DOCKED) 1,000 MG/250 ML BAG IVPB ONE ×2 (13:30→14:30)
[2024-07-15] MEDS ORDERED: LIDOCAINE 5% TOPICAL PATCH ONE (13:30)
[2024-07-15] MEDS: LIDOCAINE 5% TOPICAL PATCH TP ONE (13:35)
[2024-07-15] MEDS: CYCLOBENZAPRINE HCL 5 MG TABLET PO SCH (13:58)
[2024-07-15] MEDS: METOPROLOL TARTRATE 25 MG TABLET (FP) PO SCH ×2 (13:58→23:14)
[2024-07-15] MEDS: PIPERACILLIN/TAZOB 2.25 GM 2.25 GM in DEXTROSE 5%-WATER - 50 ML IVPB ONE (13:58)
[2024-07-15] MEDS: VANCOMYCIN 1,000 MG in DEXTROSE 5%-WATER - 250 ML IVPB ONE (15:11)
[2024-07-15] MEDS ORDERED: MORPHINE SULFATE 2 MG/ML SYRINGE ONE (15:45)
[2024-07-15] MEDS: MORPHINE SULFATE 2 MG/ML SYRINGE IVPUSH ONE (15:55)
[2024-07-15] MEDS ORDERED: METOPROLOL TARTRATE 5 MG/5 ML VIAL IVPUSH PRN (15:57)
[2024-07-15] MEDS: METOPROLOL TARTRATE 5 MG/5 ML VIAL IVPUSH ONE (16:54)
[2024-07-15] MEDS ORDERED: dilTIAZem HCL 50 MG/10 ML - 10 ML VIAL IVPUSH ONE (18:23)
[2024-07-15] MEDS: CALCIUM ACETATE 667 MG CAPSULE (FP) PO SCH (19:26)
[2024-07-15] MEDS ORDERED: MELATONIN 5 MG TABLETS ONE (20:46)
[2024-07-15] MEDS ORDERED: hydrOXYzine PAMOATE 50 MG CAPSULE (FP) ONE (20:46)
[2024-07-15] MEDS: MELATONIN 5 MG TABLETS PO ONE (20:52)
[2024-07-15] MEDS: hydrOXYzine PAMOATE 50 MG CAPSULE (FP) PO ONE (20:52)
[2024-07-15] MEDS ORDERED: HEPARIN NA (PORCINE) 5,000 UNITS/ML 1ML VIAL SQ SCH (22:00)
[2024-07-15] MEDS: ATORVASTATIN CA 40 MG TABLET (FP) PO SCH (23:13)
[2024-07-15] MEDS: APIXABAN 5 MG TABLET PO SCH (23:14)
[2024-07-15] MEDS: LIDOCAINE PATCH REMOVAL MC SCH (23:15)
[2024-07-16] MEDS: ACETAMINOPHEN 1000 MG/100 ML BAG IVPB PRN (01:11)
[2024-07-16] MEDS ORDERED: METOPROLOL TARTRATE 5 MG/5 ML VIAL IVPUSH PRN (01:52)
[2024-07-16 06:52] LABS: HEMATOCRIT 36.4 % (32.4-45.2); HEMOGLOBIN 11.6 GM/dL (10.7-15.3); MCH 30.7 pg (25.7-33.7); MCHC 31.8 g/dl (32.0-36.0); MEAN CELL VOLUME 96.6 fl (80-96); MEAN PLT VOLUME 10.7 fl (7.5-11.1); PLATELET COUNT 142 10^3/uL (134-434); RBC 3.77 M/mm3 (3.60-5.2); RDW 17.3 % (11.6-15.6); WHITE BLOOD COUNT 21.1 K/mm3 (4.0-10.0)
[2024-07-16 07:17] LABS: CHLORIDE 96 mmol/L (98-107); POTASSIUM 5.4 mmol/L (3.5-5.1); SODIUM 130 mmol/L (136-145)
[2024-07-16 07:23] LABS: BLOOD UREA NITROGEN 38.5 mg/dL (7-18); CALCIUM 9.4 mg/dL (8.5-10.1)
[2024-07-16 07:24] LABS: ALBUMIN 2.6 g/dl (3.4-5.0); ANION GAP 9 mmol/L (4-13); CO2 25 mmol/L (21-32); GLUCOSE,RANDOM 91 mg/dL (74-106); MAGNESIUM 1.9 mg/dL (1.8-2.4)
[2024-07-16 07:27] LABS: PHOSPHOROUS 5.1 mg/dL (2.5-4.9); SGOT/AST 5 U/L (15-37); SGPT/ALT 9 U/L (13-61)
[2024-07-16 07:29] LABS: BILIRUBIN,TOTAL 0.6 mg/dL (0.2-1); TOT PROT 7.2 g/dl (6.4-8.2)
[2024-07-16 07:30] LABS: ALK PHOS 86 U/L (45-117)
[2024-07-16 08:59] LABS: ANISOCYTOSIS 0; MACROCYTOSIS 0
[2024-07-16] MEDS: ISOSORBIDE DINITRATE 5 MG TABLET PO SCH (10:32)
[2024-07-16] MEDS: morphine SULFATE 4 MG/ML VIAL IVPUSH ONE (12:05)
[2024-07-16] MEDS ORDERED: ACETAMINOPHEN 325 MG TABLET (FP) PO PRN (12:30)
[2024-07-16] MEDS ORDERED: oxyCODONE HCL 5 MG TABLET PO PRN (12:30)
[2024-07-16] MEDS: HEPARIN NA (PORCINE) 5,000 UNITS/ML 1ML VIAL IVPUSH ONE (13:00)
[2024-07-16] MEDS ORDERED: SODIUM CHLORIDE 250 ML IV PRN (13:00)
[2024-07-16] MEDS: VANCOMYCIN/WATER FOR INJ (PEG) 1,000 MG/200 ML BAG IVPB ONE (17:03)
[2024-07-16] MEDS: LIDOCAINE 5% TOPICAL PATCH TP SCH (17:04)
[2024-07-16] MEDS: METHIMAZOLE 10 MG TABLET PO SCH ×2 (17:06→21:29)
[2024-07-16] MEDS: ACETAMINOPHEN 325 MG TABLET (FP) PO SCH (17:50)
[2024-07-16 21:28] LABS: HEPATITIS B SURFACE AG MATERN NON-REACTIVE (NONREACTIVE)
[2024-07-16] MEDS: METOPROLOL TARTRATE 25 MG TABLET (FP) PO SCH (21:29)
[2024-07-16] MEDS: oxyCODONE HCL 5 MG TABLET PO PRN (21:29)
[2024-07-16] MEDS: LIDOCAINE PATCH REMOVAL MC SCH (21:30)
[2024-07-16] MEDS: CYCLOBENZAPRINE HCL 5 MG TABLET PO PRN (21:30)
[2024-07-17] MEDS: FAMOTIDINE 10 MG TABLET PO SCH (10:05)
[2024-07-17 10:58] LABS: MCHC 32.4 g/dl (32.0-36.0); MEAN CELL VOLUME 95.8 fl (80-96); MEAN PLT VOLUME 10.6 fl (7.5-11.1); PLATELET COUNT 166 10^3/uL (134-434); RBC 3.55 M/mm3 (3.60-5.2); WHITE BLOOD COUNT 13.3 K/mm3 (4.0-10.0)
[2024-07-17 11:07] LABS: POTASSIUM 3.7 mmol/L (3.5-5.1)
[2024-07-17 11:14] LABS: ALBUMIN 2.6 g/dl (3.4-5.0); CALCIUM 9.1 mg/dL (8.5-10.1); MAGNESIUM 1.9 mg/dL (1.8-2.4)
[2024-07-17 11:17] LABS: CREATININE 6.4 mg/dL (0.55-1.3); PHOSPHOROUS 3.3 mg/dL (2.5-4.9)
[2024-07-17 11:18] LABS: BILIRUBIN,TOTAL 0.4 mg/dL (0.2-1); TOT PROT 6.8 g/dl (6.4-8.2)
[2024-07-17] MEDS ORDERED: oxyCODONE HCL 5 MG TABLET PO PRN (14:15)
[2024-07-17] MEDS ORDERED: ACETAMINOPHEN 325 MG TABLET (FP) PO PRN (14:15)
[2024-07-17] MEDS ORDERED: SODIUM CHLORIDE 250 ML IV PRN ×2 (14:32→19:50)
[2024-07-17] MEDS ORDERED: AMIODARONE HCL INJECTION 150 MG in DEXTROSE 5%-WATER - 100 ML IVPB ONE (17:30)
[2024-07-17] MEDS: AMIODARONE IN DEXTROSE,ISO-OSM 150 MG/100 ML BAG IVPB ONE (18:35)
[2024-07-17] MEDS: morphine SULFATE 4 MG/ML VIAL IVPUSH ONE (18:37)
[2024-07-17] MEDS ORDERED: AMIODARONE IN DEXTROSE,ISO-OSM 360 MG/200 ML BAG IV SCH (19:30)
[2024-07-17] MEDS: AMIODARONE IN DEXTROSE,ISO-OSM 360 MG/200 ML BAG IV SCH (20:18)
[2024-07-17] MEDS ORDERED: DEXTROSE 50%-WATER 25 GM/50 ML DISP.SYRIN ONE (20:51)
[2024-07-17] MEDS: MUPIROCIN 2% TOPICAL OINTMENT FOR DECOLONIZATION NS SCH (21:13)
[2024-07-17] MEDS: CHLORHEXIDINE GLUCONATE 4% CLEANSER FOR DECOLONIZATION TP SCH (21:13)
[2024-07-17] MEDS: DEXTROSE 50%-WATER - 25 GM/50 ML VIAL IVPUSH ONE (21:23)
[2024-07-17] MEDS ORDERED: FAMOTIDINE 10 MG TABLET PO SCH (22:20)
[2024-07-17 23:02] LABS: POTASSIUM 5.3 mmol/L (3.5-5.1)
[2024-07-17 23:05] LABS: ALBUMIN 2.4 g/dl (3.4-5.0); BLOOD UREA NITROGEN 31.5 mg/dL (7-18); CALCIUM 9.1 mg/dL (8.5-10.1)
[2024-07-17 23:10] LABS: BILIRUBIN,TOTAL 0.4 mg/dL (0.2-1); TOT PROT 6.7 g/dl (6.4-8.2)
[2024-07-18] MEDS: AMIODARONE IN DEXTROSE,ISO-OSM 360 MG/200 ML BAG IV SCH (01:45)
[2024-07-18] MEDS: METHIMAZOLE 10 MG TABLET PO SCH (01:46)
[2024-07-18] MEDS ORDERED: DEXTROSE 50%-WATER 25 GM/50 ML DISP.SYRIN ONE ×2 (02:12→05:30)
[2024-07-18] MEDS: DEXTROSE 50%-WATER - 25 GM/50 ML VIAL IVPUSH ONE (02:29)
[2024-07-18] MEDS: DEXTROSE 10%-WATER - 1,000 ML IV SCH (02:29)
[2024-07-18] MEDS ORDERED: NOREPINEPHRINE BITARTRATE 4 MG/4 ML ML IV ONE (06:54)
[2024-07-18] MEDS: NOREPINEPHRINE BITARTRATE 4,000 MCG in DEXTROSE 5%-WATER - 496 ML IV SCH (06:57)
[2024-07-18 07:39] LABS: HEMATOCRIT 34.4 % (32.4-45.2); HEMOGLOBIN 11.6 GM/dL (10.7-15.3); MCH 31.9 pg (25.7-33.7); MCHC 33.7 g/dl (32.0-36.0); MEAN CELL VOLUME 94.5 fl (80-96); MEAN PLT VOLUME 10.5 fl (7.5-11.1); PLATELET COUNT 168 10^3/uL (134-434); RBC 3.64 M/mm3 (3.60-5.2); RDW 16.8 % (11.6-15.6); WHITE BLOOD COUNT 12.1 K/mm3 (4.0-10.0)
[2024-07-18 07:51] LABS: CHLORIDE 94 mmol/L (98-107); POTASSIUM 4.2 mmol/L (3.5-5.1); SODIUM 131 mmol/L (136-145)
[2024-07-18 08:00] LABS: ALBUMIN 2.4 g/dl (3.4-5.0); ANION GAP 7 mmol/L (4-13); BLOOD UREA NITROGEN 33.2 mg/dL (7-18); CALCIUM 9.1 mg/dL (8.5-10.1); CO2 31 mmol/L (21-32); GLUCOSE,RANDOM 90 mg/dL (74-106); MAGNESIUM 1.6 mg/dL (1.8-2.4)
[2024-07-18 08:04] LABS: PHOSPHOROUS 3.4 mg/dL (2.5-4.9); SGOT/AST 8 U/L (15-37); SGPT/ALT 6 U/L (13-61)
[2024-07-18 08:05] LABS: BILIRUBIN,TOTAL 0.3 mg/dL (0.2-1); TOT PROT 6.7 g/dl (6.4-8.2)
[2024-07-18 08:06] LABS: ALK PHOS 104 U/L (45-117)
[2024-07-18] MEDS: CALCIUM ACETATE 667 MG CAPSULE (FP) PO SCH (08:07)
[2024-07-18 08:11] LABS: CREATININE 7.6 mg/dL (0.55-1.3)
[2024-07-18] MEDS: MAGNESIUM 2GM/50ML STERILE WATER IVPB IVPB ONE (09:08)
[2024-07-18] MEDS: FAMOTIDINE 10 MG TABLET PO SCH (09:08)
[2024-07-18] MEDS ORDERED: DAPTOMYCIN 480 MG in SODIUM CHLORIDE 50 ML IVPB SCH (14:00)
[2024-07-18 14:36] LABS: HEMATOCRIT 31.4 % (32.4-45.2); HEMOGLOBIN 10.3 GM/dL (10.7-15.3); MCH 30.9 pg (25.7-33.7); MCHC 32.7 g/dl (32.0-36.0); MEAN CELL VOLUME 94.6 fl (80-96); MEAN PLT VOLUME 9.5 fl (7.5-11.1); PLATELET COUNT 155 10^3/uL (134-434); RBC 3.32 M/mm3 (3.60-5.2); RDW 16.9 % (11.6-15.6); WHITE BLOOD COUNT 9.8 K/mm3 (4.0-10.0)
[2024-07-18 14:42] LABS: INR 1.32 (0.83-1.09); PROTHROMBIN TIME (PATIENT) 15.1 SEC (9.7-13.0)
[2024-07-18 15:41] LABS: POTASSIUM 3.3 mmol/L (3.5-5.1)
[2024-07-18 15:44] LABS: CALCIUM 8.2 mg/dL (8.5-10.1)
[2024-07-18 15:45] LABS: BLOOD UREA NITROGEN 21.8 mg/dL (7-18)
[2024-07-18] MEDS: DAPTOMYCIN 480 MG in SODIUM CHLORIDE 50 ML IVPB SCH (16:51)
[2024-07-18] MEDS: ACETAMINOPHEN 325 MG TABLET (FP) PO PRN (18:13)
[2024-07-18] MEDS: MIDODRINE HCL 2.5 MG TABLET PO SCH (18:36)
[2024-07-18 22:09] LABS: POTASSIUM 3.6 mmol/L (3.5-5.1)
[2024-07-18 22:10] LABS: CALCIUM 8.2 mg/dL (8.5-10.1)
[2024-07-18 22:11] LABS: BLOOD UREA NITROGEN 18.4 mg/dL (7-18)
[2024-07-18 22:14] LABS: CREATININE 4.6 mg/dL (0.55-1.3)
[2024-07-19 07:10] LABS: MAGNESIUM 1.8 mg/dL (1.8-2.4)
[2024-07-19 07:14] LABS: PHOSPHOROUS 3.3 mg/dL (2.5-4.9)
[2024-07-19] MEDS: MIDODRINE HCL 5 MG TABLET PO SCH (09:09)
[2024-07-19] MEDS ORDERED: SODIUM CHLORIDE 250 ML IV PRN (10:30)
[2024-07-19] MEDS ORDERED: LIDO 2%/EPI 1:200000 PRESRVFRE (20 ML SDVIAL) NR ONE (17:00)
[2024-07-20 06:34] LABS: BASO % 0.2 % (0-2.0); EOS % 0.4 % (0-4.5); HEMATOCRIT 29.3 % (32.4-45.2); HEMOGLOBIN 9.5 GM/dL (10.7-15.3); MCHC 32.5 g/dl (32.0-36.0); MEAN CELL VOLUME 95.2 fl (80-96); MEAN PLT VOLUME 9.6 fl (7.5-11.1); MONO % 10.5 % (3.8-10.2); NEUT % 67.9 % (42.8-82.8); PLATELET COUNT 147 10^3/uL (134-434); RBC 3.08 M/mm3 (3.60-5.2); RDW 16.7 % (11.6-15.6)
[2024-07-20 06:48] LABS: POTASSIUM 3.6 mmol/L (3.5-5.1)
[2024-07-20 06:50] LABS: CALCIUM 8.4 mg/dL (8.5-10.1)
[2024-07-20 06:52] LABS: BLOOD UREA NITROGEN 17.9 mg/dL (7-18)
[2024-07-20 06:54] LABS: CREATININE 4.4 mg/dL (0.55-1.3)
[2024-07-20 06:55] LABS: ALBUMIN 1.8 g/dl (3.4-5.0); BILIRUBIN,TOTAL 0.3 mg/dL (0.2-1); TOT PROT 5.6 g/dl (6.4-8.2)
[2024-07-20] MEDS: DAPTOMYCIN IVPB ONE (16:04)
[2024-07-20] MEDS: SODIUM CHLORIDE IVPB ONE (16:04)
[2024-07-20] MEDS: oxyCODONE HCL 5 MG TABLET PO PRN (21:55)
[2024-07-21 08:14] LABS: BASO % 0.3 % (0-2.0); EOS % 0.2 % (0-4.5); HEMATOCRIT 33.4 % (32.4-45.2); LYMPH % 22.9 % (8-40); MCH 31.3 pg (25.7-33.7); MCHC 32.8 g/dl (32.0-36.0); MEAN CELL VOLUME 95.3 fl (80-96); MEAN PLT VOLUME 9.4 fl (7.5-11.1); MONO % 7.5 % (3.8-10.2); NEUT % 69.1 % (42.8-82.8); PLATELET COUNT 180 10^3/uL (134-434); RBC 3.51 M/mm3 (3.60-5.2); RDW 17.1 % (11.6-15.6); WHITE BLOOD COUNT 9.6 K/mm3 (4.0-10.0)
[2024-07-21 08:24] LABS: POTASSIUM 4.1 mmol/L (3.5-5.1)
[2024-07-21 08:27] LABS: ALBUMIN 2.2 g/dl (3.4-5.0); BLOOD UREA NITROGEN 31.4 mg/dL (7-18); CALCIUM 9.5 mg/dL (8.5-10.1); MAGNESIUM 1.9 mg/dL (1.8-2.4)
[2024-07-21 08:30] LABS: CREATININE 6.2 mg/dL (0.55-1.3); PHOSPHOROUS 4.1 mg/dL (2.5-4.9)
[2024-07-21 08:32] LABS: BILIRUBIN,TOTAL 0.3 mg/dL (0.2-1); TOT PROT 6.5 g/dl (6.4-8.2)
[2024-07-21] MEDS ORDERED: DAPTOMYCIN IVPB SCH (14:22)
[2024-07-21] MEDS ORDERED: SODIUM CHLORIDE IVPB SCH (14:22)
[2024-07-22 10:50] LABS: HEMOGLOBIN 10.7 GM/dL (10.7-15.3); MCH 30.7 pg (25.7-33.7); MCHC 32.4 g/dl (32.0-36.0); MEAN CELL VOLUME 94.7 fl (80-96); MEAN PLT VOLUME 9.9 fl (7.5-11.1); RBC 3.49 M/mm3 (3.60-5.2); RDW 17.3 % (11.6-15.6)
[2024-07-22 10:52] LABS: WHITE BLOOD COUNT 14.4 K/mm3 (4.0-10.0)
[2024-07-22 10:54] LABS: PLATELET COUNT 190 10^3/uL (134-434)
[2024-07-22 11:02] LABS: INR 1.04 (0.83-1.09); PROTHROMBIN TIME (PATIENT) 11.9 SEC (9.7-13.0)
[2024-07-22 11:13] LABS: CHLORIDE 97 mmol/L (98-107); POTASSIUM 4.4 mmol/L (3.5-5.1); SODIUM 134 mmol/L (136-145)
[2024-07-22 11:15] LABS: ALBUMIN 2.2 g/dl (3.4-5.0); CALCIUM 9.3 mg/dL (8.5-10.1)
[2024-07-22 11:16] LABS: ANION GAP 9 mmol/L (4-13); BLOOD UREA NITROGEN 42.8 mg/dL (7-18); CO2 29 mmol/L (21-32); GLUCOSE,RANDOM 67 mg/dL (74-106); MAGNESIUM 2.2 mg/dL (1.8-2.4)
[2024-07-22 11:19] LABS: PHOSPHOROUS 4.2 mg/dL (2.5-4.9); SGOT/AST 67 U/L (15-37); SGPT/ALT 23 U/L (13-61)
[2024-07-22 11:20] LABS: BILIRUBIN,TOTAL 0.4 mg/dL (0.2-1); TOT PROT 6.4 g/dl (6.4-8.2)
[2024-07-22 11:21] LABS: ALK PHOS 91 U/L (45-117)
[2024-07-22 11:34] LABS: ANISOCYTOSIS 0; HELMET CELLS 0; HOWELL-JOLLY BODIES 0; MACROCYTOSIS 0; OVALOCYTE 0; ROULEAU 0; SICKELED CELLS 0; TARGET CELLS 0; TEAR DROP CELLS 0; TOXIC GRANULATION 0
[2024-07-22 11:35] LABS: CREATININE 8.1 mg/dL (0.55-1.3)
[2024-07-22] MEDS ORDERED: GENTAMICIN SO4 80 MG/2 ML VIAL ONE (11:36)
[2024-07-22] MEDS ORDERED: THROMBIN (BOVINE) 20,000 UNIT VIAL TP ONE (11:36)
[2024-07-22] MEDS ORDERED: LIDOCAINE 1%/EPI 1:100000 (20 ML MULTI DOSE VIAL) ONE (11:36)
[2024-07-22] MEDS ORDERED: MIDAZOLAM HCL 2 MG/2 ML SINGLE DOSE VIAL ONE ×3 (12:46→16:31)
[2024-07-22] MEDS ORDERED: PROPOFOL 40 ML ONE (12:49)
[2024-07-22] MEDS ORDERED: DEXAMETHASONE SOD PHOSPHATE 4 MG/1 ML VIAL ONE (13:42)
[2024-07-22] MEDS: DAPTOMYCIN IVPB SCH (13:46)
[2024-07-22] MEDS: SODIUM CHLORIDE IVPB SCH (13:46)
[2024-07-22] MEDS ORDERED: VANCOMYCIN 1,000 MG VIAL (RESTRICTED TO ID ONLY) ONE (13:53)
[2024-07-22] MEDS: ceFAZolin SODIUM 1 GM VIAL IVPB ONE (14:00)
[2024-07-22] MEDS ORDERED: ACETAMINOPHEN INJECTION 100 ML ONE (14:01)
[2024-07-22] MEDS: LIDOCAINE 1%/EPI 1:100000 (20 ML MULTI DOSE VIAL) INF ONE (14:02)
[2024-07-22] MEDS ORDERED: THROMBIN (BOVINE) 5,000 UNIT VIAL TP ONE (14:04)
[2024-07-22] MEDS ORDERED: HYDROmorphone HCl 2 MG/ML VIAL ONE (14:15)
[2024-07-22] MEDS: GENTAMICIN SO4 80 MG/2 ML VIAL IVPB ONE (14:34)
[2024-07-22] MEDS: THROMBIN (BOVINE) 5,000 UNIT VIAL TP ONE (14:37)
[2024-07-22] MEDS ORDERED: ROCURONIUM BROMIDE 50 MG/5 ML SYRINGE ONE (15:30)
[2024-07-22] MEDS ORDERED: BUPIVACAINE HCL/PF 0.5% (5MG/ML) 10 ML VIAL ONE (15:40)
[2024-07-22] MEDS ORDERED: BUPIVACAINE LIPOSOME/PF (EXPAREL) 266 MG/20 ML VIAL ONE (15:41)
[2024-07-22] MEDS: BUPIVACAINE LIPOSOME/PF (EXPAREL) 266 MG/20 ML VIAL NR ONE (16:27)
[2024-07-22] MEDS: BUPIVACAINE HCL/PF 0.5% (5 MG/ML) 30 ML VIAL IJ ONE (16:28)
[2024-07-22] MEDS ORDERED: ONDANSETRON 4 MG/2 ML VIAL IVPUSH PRN (16:59)
[2024-07-22] MEDS ORDERED: diphenhydrAMINE HCL 25 MG CAPSULE (FP) PO PRN (16:59)
[2024-07-22] MEDS ORDERED: FENTANYL NS IVPB 500 MCG/100 ML BAG IVPB ONE (17:51)
[2024-07-22] MEDS: PROPOFOL 1,000,000 MCG/100 ML VIAL IVPB SCH (18:12)
[2024-07-22] MEDS: FENTANYL NS IVPB 500 MCG/100 ML BAG IVPB SCH (18:20)
[2024-07-22] MEDS: DOCUSATE SODIUM 100 MG CAPSULE (FP) PO SCH (22:11)
[2024-07-22 23:04] LABS: HEMATOCRIT 31.6 % (32.4-45.2); HEMOGLOBIN 10.1 GM/dL (10.7-15.3); MCH 30.4 pg (25.7-33.7); MEAN CELL VOLUME 94.8 fl (80-96); MEAN PLT VOLUME 9.5 fl (7.5-11.1); PLATELET COUNT 182 10^3/uL (134-434); RBC 3.34 M/mm3 (3.60-5.2); RDW 17.2 % (11.6-15.6); WHITE BLOOD COUNT 15.3 K/mm3 (4.0-10.0)
[2024-07-22 23:36] LABS: CHLORIDE 100 mmol/L (98-107); POTASSIUM 4.9 mmol/L (3.5-5.1); SODIUM 135 mmol/L (136-145)
[2024-07-22 23:38] LABS: ALBUMIN 2.3 g/dl (3.4-5.0); CALCIUM 9.2 mg/dL (8.5-10.1)
[2024-07-22 23:39] LABS: ANION GAP 10 mmol/L (4-13); BLOOD UREA NITROGEN 50.6 mg/dL (7-18); CO2 25 mmol/L (21-32); GLUCOSE,RANDOM 100 mg/dL (74-106); MAGNESIUM 2.2 mg/dL (1.8-2.4)
[2024-07-22 23:42] LABS: PHOSPHOROUS 6.8 mg/dL (2.5-4.9); SGOT/AST 45 U/L (15-37); SGPT/ALT 20 U/L (13-61)
[2024-07-22 23:43] LABS: BILIRUBIN,TOTAL 0.4 mg/dL (0.2-1); CREATININE 8.6 mg/dL (0.55-1.3)
[2024-07-22 23:45] LABS: ALK PHOS 100 U/L (45-117)
[2024-07-22 23:54] LABS: ANISOCYTOSIS 1+; MACROCYTOSIS 1+
[2024-07-23 06:38] LABS: HEMATOCRIT 31.1 % (32.4-45.2); HEMOGLOBIN 10.1 GM/dL (10.7-15.3); MCH 30.7 pg (25.7-33.7); MCHC 32.5 g/dl (32.0-36.0); MEAN CELL VOLUME 94.6 fl (80-96); PLATELET COUNT 196 10^3/uL (134-434); RBC 3.29 M/mm3 (3.60-5.2); RDW 16.9 % (11.6-15.6); WHITE BLOOD COUNT 14.6 K/mm3 (4.0-10.0)
[2024-07-23 06:54] LABS: CHLORIDE 100 mmol/L (98-107); POTASSIUM 4.8 mmol/L (3.5-5.1); SODIUM 135 mmol/L (136-145)
[2024-07-23 06:57] LABS: ANION GAP 11 mmol/L (4-13); CALCIUM 8.7 mg/dL (8.5-10.1); CO2 24 mmol/L (21-32); GLUCOSE,RANDOM 99 mg/dL (74-106); MAGNESIUM 2.2 mg/dL (1.8-2.4)
[2024-07-23 07:00] LABS: PHOSPHOROUS 7.1 mg/dL (2.5-4.9)
[2024-07-23] MEDS ORDERED: VANCOMYCIN 1,000 MG VIAL (RESTRICTED TO ID ONLY) ONE (07:04)
[2024-07-23] MEDS ORDERED: THROMBIN (BOVINE) 5,000 UNIT VIAL TP ONE (07:04)
[2024-07-23] MEDS ORDERED: GENTAMICIN SO4 80 MG/2 ML VIAL ONE (07:04)
[2024-07-23] MEDS ORDERED: BACITRACIN ZINC 15 GM TUBE TOPICAL OINTMENT ONE (07:09)
[2024-07-23] MEDS ORDERED: THROMBIN (BOVINE) 20,000 UNIT VIAL TP ONE (07:09)
[2024-07-23] MEDS ORDERED: PROPOFOL 20 ML ONE (08:04)
[2024-07-23] MEDS ORDERED: MIDAZOLAM HCL 2 MG/2 ML SINGLE DOSE VIAL ONE (08:04)
[2024-07-23] MEDS ORDERED: ROCURONIUM BROMIDE 50 MG/5 ML SYRINGE ONE ×2 (08:26→09:01)
[2024-07-23] MEDS: ceFAZolin SODIUM 1 GM VIAL IVPB ONE (08:53)
[2024-07-23] MEDS ORDERED: ceFAZolin SODIUM 1 GM VIAL ONE (08:59)
[2024-07-23] MEDS ORDERED: ESMOLOL 2500 MG/250 ML 2,500,000 MCG/250 ML INFUS.BAG IVPB ONE (09:00)
[2024-07-23] MEDS ORDERED: BUPIVACAINE LIPOSOME/PF (EXPAREL) 266 MG/20 ML VIAL ONE (09:37)
[2024-07-23] MEDS: THROMBIN (BOVINE) 5,000 UNIT VIAL TP ONE (09:50)
[2024-07-23] MEDS: GENTAMICIN SO4 80 MG/2 ML VIAL IVPB ONE (09:51)
[2024-07-23] MEDS: HYDROGEN PEROXIDE 473 ML PO ONE (09:52)
[2024-07-23] MEDS ORDERED: GLYCOPYRROLATE 0.2 MG/1 ML VIAL ONE (09:55)
[2024-07-23] MEDS ORDERED: NEOSTIGMINE METHYLSULFATE 0.5 MG/1 ML - 10 ML MDV ONE (09:55)
[2024-07-23] MEDS ORDERED: ONDANSETRON 4 MG/2 ML VIAL ONE (09:55)
[2024-07-23] MEDS: BUPIVACAINE LIPOSOME/PF (EXPAREL) 266 MG/20 ML VIAL NR ONE (09:55)
[2024-07-23] MEDS: BUPIVACAINE HCL/PF 0.5% (5 MG/ML) 30 ML VIAL IJ ONE (09:57)
[2024-07-23] MEDS ORDERED: ONDANSETRON 4 MG/2 ML VIAL IVPUSH PRN (11:10)
[2024-07-23] MEDS ORDERED: DEXTROSE 50%-WATER 25 GM/50 ML DISP.SYRIN ONE ×2 (11:44→15:25)
[2024-07-23] MEDS: DEXTROSE 50%-WATER - 25 GM/50 ML VIAL IVPUSH ONE (12:10)
[2024-07-23] MEDS: FOLIC ACID 1 MG TABLET (FP) PO SCH (14:24)
[2024-07-23 15:57] VITALS: BMI 30.4
[2024-07-23] MEDS: SODIUM CHLORIDE 500 ML IV STA (16:12)
[2024-07-23] MEDS: DEXTROSE 50%-WATER 25 GM/50 ML DISP.SYRIN IVPUSH ONE (16:12)
[2024-07-23] MEDS: MIDODRINE HCL 5 MG TABLET PO SCH (17:29)
[2024-07-23] MEDS: CHLORHEXIDINE GLUCONATE 4% CLEANSER FOR DECOLONIZATION TP SCH (21:36)
[2024-07-23] MEDS: MUPIROCIN 2% TOPICAL OINTMENT FOR DECOLONIZATION NS SCH (21:38)
[2024-07-24] MEDS ORDERED: ACETAMINOPHEN 325 MG TABLET (FP) PO PRN (07:51)
[2024-07-24] MEDS ORDERED: oxyCODONE HCL 5 MG TABLET PO PRN ×2 (07:51)
[2024-07-24] MEDS ORDERED: ONDANSETRON 4 MG/2 ML VIAL IVPUSH PRN (07:51)
[2024-07-24] MEDS ORDERED: diphenhydrAMINE HCL 25 MG CAPSULE (FP) PO PRN (07:51)
[2024-07-24] MEDS: LIDO 2%/EPI 1:200000 PRESRVFRE (20 ML SDVIAL) NR ONE (09:13)
[2024-07-24] MEDS: PROPOFOL 1,000,000 MCG/100 ML VIAL IVPB SCH (09:14)
[2024-07-24] MEDS: HYDROmorphone *PCA* 10MG/50ML DISP.SYRIN PCA SCH ×2 (09:14→18:01)
[2024-07-24] MEDS: DEXTROSE 50%-WATER - 25 GM/50 ML VIAL IVPUSH ONE (09:15)
[2024-07-24 09:50] LABS: BASO % 0.6 % (0-2.0); HEMATOCRIT 29.7 % (32.4-45.2); HEMOGLOBIN 9.4 GM/dL (10.7-15.3); LYMPH % 9.3 % (8-40); MCH 30.2 pg (25.7-33.7); MCHC 31.7 g/dl (32.0-36.0); MEAN CELL VOLUME 95.5 fl (80-96); MEAN PLT VOLUME 9.6 fl (7.5-11.1); MONO % 3.9 % (3.8-10.2); NEUT % 86.2 % (42.8-82.8); PLATELET COUNT 170 10^3/uL (134-434); RBC 3.11 M/mm3 (3.60-5.2); RDW 17.2 % (11.6-15.6); WHITE BLOOD COUNT 19.1 K/mm3 (4.0-10.0)
[2024-07-24 10:09] LABS: CHLORIDE 99 mmol/L (98-107); POTASSIUM 5.3 mmol/L (3.5-5.1); SODIUM 135 mmol/L (136-145)
[2024-07-24 10:25] LABS: ANION GAP 11 mmol/L (4-13); BLOOD UREA NITROGEN 74.6 mg/dL (7-18); CALCIUM 9.2 mg/dL (8.5-10.1); CO2 25 mmol/L (21-32); GLUCOSE,RANDOM 78 mg/dL (74-106)
[2024-07-24 10:29] LABS: CREATININE 10.2 mg/dL (0.55-1.3)
[2024-07-24 10:32] LABS: CHLORIDE 98 mmol/L (98-107); POTASSIUM 5.6 mmol/L (3.5-5.1); SODIUM 134 mmol/L (136-145)
[2024-07-24 10:42] LABS: CALCIUM 8.9 mg/dL (8.5-10.1)
[2024-07-24 10:43] LABS: ALBUMIN 2.4 g/dl (3.4-5.0); ANION GAP 11 mmol/L (4-13); BLOOD UREA NITROGEN 75.4 mg/dL (7-18); CO2 24 mmol/L (21-32); GLUCOSE,RANDOM 71 mg/dL (74-106); MAGNESIUM 2.5 mg/dL (1.8-2.4)
[2024-07-24 10:45] LABS: SGOT/AST 45 U/L (15-37); SGPT/ALT 14 U/L (13-61)
[2024-07-24 10:46] LABS: CREATININE 10.3 mg/dL (0.55-1.3); PHOSPHOROUS 6.8 mg/dL (2.5-4.9)
[2024-07-24 10:47] LABS: BILIRUBIN,TOTAL 0.4 mg/dL (0.2-1); TOT PROT 6.4 g/dl (6.4-8.2)
[2024-07-24 10:48] LABS: ALK PHOS 98 U/L (45-117)
[2024-07-24] MEDS: LACTATED RINGERS SOLUTION 1,000 ML/1,000 ML INFUS.BAG IV SCH (10:58)
[2024-07-24] MEDS: CALCIUM ACETATE 667 MG CAPSULE (FP) PO SCH (11:07)
[2024-07-24] MEDS: FERROUS SO4 325 MG TABLET (FP) PO SCH (11:07)
[2024-07-24] MEDS: FOLIC ACID 1 MG TABLET (FP) PO SCH (11:07)
[2024-07-24] MEDS: FAMOTIDINE 10 MG TABLET PO SCH (11:08)
[2024-07-24] MEDS: CEFAZOLIN 1 GM in DEXTROSE 5%-WATER - 50 ML IVPB SCH (11:09)
[2024-07-24] MEDS: MUPIROCIN 2% TOPICAL OINTMENT FOR DECOLONIZATION NS SCH (11:11)
[2024-07-24] MEDS: ALBUMIN HUMAN 5% 500 ML IV SOLUTION IV ONE ×2 (11:42→18:01)
[2024-07-24] MEDS ORDERED: INSULIN ASPART SLIDING SCALE (NOVOLOG) 1 VIAL SQ ONE (11:50)
[2024-07-24] MEDS: LORazepam 2 MG/ML SDV VIAL IVPUSH ONE (13:12)
[2024-07-24] MEDS ORDERED: SODIUM CHLORIDE 250 ML IV PRN (13:27)
[2024-07-24] MEDS: DAPTOMYCIN IVPB SCH (13:44)
[2024-07-24] MEDS: SODIUM CHLORIDE IVPB SCH (13:44)
[2024-07-24] MEDS ORDERED: HEPARIN NA (PORCINE) 5,000 UNITS/ML 1ML VIAL SQ SCH (14:00)
[2024-07-24] MEDS: HEPARIN NA (PORCINE) 5,000 UNITS/ML 1ML VIAL SQ SCH ×2 (15:57→18:01)
[2024-07-24] MEDS: DOCUSATE SODIUM 100 MG CAPSULE (FP) PO SCH (15:58)
[2024-07-24] MEDS: METHIMAZOLE 10 MG TABLET PO SCH (15:58)
[2024-07-24] MEDS: EPOETIN ALFA-EPBX 10,000 UNIT/ML VIAL SQ ONE (16:25)
[2024-07-25 07:30] LABS: BASO % 0.3 % (0-2.0); EOS % 0.1 % (0-4.5); HEMATOCRIT 28.7 % (32.4-45.2); HEMOGLOBIN 9.1 GM/dL (10.7-15.3); LYMPH % 11.7 % (8-40); MCH 30.6 pg (25.7-33.7); MCHC 31.8 g/dl (32.0-36.0); MEAN PLT VOLUME 10.1 fl (7.5-11.1); MONO % 5.5 % (3.8-10.2); NEUT % 82.4 % (42.8-82.8); PLATELET COUNT 158 10^3/uL (134-434); RBC 2.99 M/mm3 (3.60-5.2); RDW 16.9 % (11.6-15.6)
[2024-07-25 07:53] LABS: CHLORIDE 101 mmol/L (98-107); POTASSIUM 4.9 mmol/L (3.5-5.1); SODIUM 136 mmol/L (136-145)
[2024-07-25 07:57] LABS: CALCIUM 9.2 mg/dL (8.5-10.1)
[2024-07-25 07:58] LABS: ALBUMIN 2.2 g/dl (3.4-5.0); ANION GAP 8 mmol/L (4-13); BLOOD UREA NITROGEN 67.4 mg/dL (7-18); CO2 27 mmol/L (21-32); GLUCOSE,RANDOM 57 mg/dL (74-106); MAGNESIUM 2.3 mg/dL (1.8-2.4)
[2024-07-25 08:02] LABS: SGOT/AST 30 U/L (15-37); SGPT/ALT 6 U/L (13-61)
[2024-07-25 08:03] LABS: BILIRUBIN,TOTAL 0.4 mg/dL (0.2-1)
[2024-07-25 08:04] LABS: ALK PHOS 90 U/L (45-117); CREATININE 9.6 mg/dL (0.55-1.3)
[2024-07-25 08:05] LABS: TOT PROT 5.8 g/dl (6.4-8.2)
[2024-07-25] MEDS ORDERED: SODIUM CHLORIDE 250 ML IV PRN ×2 (09:35→14:18)
[2024-07-25] MEDS ORDERED: diphenhydrAMINE HCL 25 MG CAPSULE (FP) PO PRN (14:18)
[2024-07-25] MEDS ORDERED: ONDANSETRON 4 MG/2 ML VIAL IVPUSH PRN (14:18)
[2024-07-25] MEDS: METHIMAZOLE 10 MG TABLET PO SCH (16:10)
[2024-07-25] MEDS: HEPARIN NA (PORCINE) 5,000 UNITS/ML 1ML VIAL SQ SCH (16:10)
[2024-07-25] MEDS: MIDODRINE HCL 5 MG TABLET PO SCH (16:10)
[2024-07-25] MEDS: ACETAMINOPHEN 325 MG TABLET (FP) PO SCH (16:37)
[2024-07-25] MEDS ORDERED: MIDODRINE HCL 5 MG TABLET PO SCH (18:00)
[2024-07-25] MEDS: CALCIUM ACETATE 667 MG CAPSULE (FP) PO SCH (18:17)
[2024-07-25] MEDS ORDERED: METHIMAZOLE 10 MG TABLET PO SCH (22:00)
[2024-07-25] MEDS ORDERED: HEPARIN NA (PORCINE) 5,000 UNITS/ML 1ML VIAL SQ SCH (22:00)
[2024-07-25] MEDS: DOCUSATE SODIUM 100 MG CAPSULE (FP) PO SCH (22:26)
[2024-07-25] MEDS: MUPIROCIN 2% TOPICAL OINTMENT FOR DECOLONIZATION NS SCH (22:52)
[2024-07-25] MEDS ORDERED: DEXTROSE 50%-WATER 25 GM/50 ML DISP.SYRIN ONE (23:36)
[2024-07-26] MEDS: DEXTROSE 50%-WATER 25 GM/50 ML DISP.SYRIN IVPUSH ONE
[2024-07-26 08:24] LABS: BASO % 0.3 % (0-2.0); EOS % 0.2 % (0-4.5); HEMATOCRIT 25.8 % (32.4-45.2); HEMOGLOBIN 8.2 GM/dL (10.7-15.3); LYMPH % 12.9 % (8-40); MCH 30.2 pg (25.7-33.7); MCHC 31.8 g/dl (32.0-36.0); MEAN CELL VOLUME 95.1 fl (80-96); MEAN PLT VOLUME 10.1 fl (7.5-11.1); MONO % 5.7 % (3.8-10.2); NEUT % 80.9 % (42.8-82.8); PLATELET COUNT 183 10^3/uL (134-434); RBC 2.71 M/mm3 (3.60-5.2); RDW 17.3 % (11.6-15.6); WHITE BLOOD COUNT 14.5 K/mm3 (4.0-10.0)
[2024-07-26 08:36] LABS: CHLORIDE 101 mmol/L (98-107); POTASSIUM 4.9 mmol/L (3.5-5.1); SODIUM 135 mmol/L (136-145)
[2024-07-26 08:46] LABS: SGOT/AST 16 U/L (15-37)
[2024-07-26 08:47] LABS: ALK PHOS 81 U/L (45-117); BILIRUBIN,TOTAL 0.4 mg/dL (0.2-1); TOT PROT 5.4 g/dl (6.4-8.2)
[2024-07-26 08:48] LABS: BLOOD UREA NITROGEN 74.2 mg/dL (7-18); GLUCOSE,RANDOM 66 mg/dL (74-106)
[2024-07-26 08:49] LABS: ANION GAP 10 mmol/L (4-13); CO2 25 mmol/L (21-32); MAGNESIUM 2.2 mg/dL (1.8-2.4)
[2024-07-26 08:51] LABS: PHOSPHOROUS 5.5 mg/dL (2.5-4.9)
[2024-07-26] MEDS: DAPTOMYCIN IVPB SCH ×2 (08:52→18:55)
[2024-07-26] MEDS: SODIUM CHLORIDE IVPB SCH ×2 (08:52→18:55)
[2024-07-26 08:55] LABS: CREATININE 10.8 mg/dL (0.55-1.3); SGPT/ALT < 6 U/L (13-61)
[2024-07-26 08:56] LABS: CALCIUM 8.9 mg/dL (8.5-10.1)
[2024-07-26] MEDS ORDERED: EPOETIN ALFA-EPBX 10,000 UNIT/ML VIAL SQ ONE (09:35)
[2024-07-26] MEDS: FAMOTIDINE 10 MG TABLET PO SCH (11:23)
[2024-07-26] MEDS: FOLIC ACID 1 MG TABLET (FP) PO SCH (11:23)
[2024-07-26] MEDS: FERROUS SO4 325 MG TABLET (FP) PO SCH (11:23)
[2024-07-26] MEDS ORDERED: SODIUM CHLORIDE 250 ML IV PRN (11:36)
[2024-07-26] MEDS: EPOETIN ALFA-EPBX 10,000 UNIT/ML VIAL SQ ONE (12:33)
[2024-07-26] MEDS: APIXABAN 5 MG TABLET PO SCH (22:22)
[2024-07-27] MEDS: PANTOPRAZOLE 40 MG TABLET PO SCH (10:44)
[2024-07-28 08:19] LABS: BASO % 0.4 % (0-2.0); EOS % 0.3 % (0-4.5); HEMATOCRIT 26.3 % (32.4-45.2); HEMOGLOBIN 8.4 GM/dL (10.7-15.3); LYMPH % 12.4 % (8-40); MCH 30.5 pg (25.7-33.7); MCHC 31.9 g/dl (32.0-36.0); MEAN CELL VOLUME 95.5 fl (80-96); MEAN PLT VOLUME 9.6 fl (7.5-11.1); MONO % 7.9 % (3.8-10.2); PLATELET COUNT 235 10^3/uL (134-434); RBC 2.76 M/mm3 (3.60-5.2); RDW 16.8 % (11.6-15.6); WHITE BLOOD COUNT 13.2 K/mm3 (4.0-10.0)
[2024-07-28 08:37] LABS: CHLORIDE 101 mmol/L (98-107); POTASSIUM 5.3 mmol/L (3.5-5.1); SODIUM 137 mmol/L (136-145)
[2024-07-28 08:42] LABS: CALCIUM 9.2 mg/dL (8.5-10.1)
[2024-07-28 08:43] LABS: ANION GAP 7 mmol/L (4-13); CO2 29 mmol/L (21-32); GLUCOSE,RANDOM 76 mg/dL (74-106); MAGNESIUM 1.9 mg/dL (1.8-2.4)
[2024-07-28 08:46] LABS: PHOSPHOROUS 5.3 mg/dL (2.5-4.9)
[2024-07-28 08:53] LABS: CREATININE 8.6 mg/dL (0.55-1.3)
[2024-07-28] MEDS: oxyCODONE HCL 5 MG TABLET PO PRN ×2 (09:18→21:07)
[2024-07-28] MEDS ORDERED: SODIUM CHLORIDE 250 ML IV PRN (10:20)
[2024-07-28] MEDS: SODIUM ZIRCONIUM CYCLOSILICATE (LOKELMA) 5 GM PACKET PO SCH (12:01)
[2024-07-28] MEDS ORDERED: LOPERAMIDE HCL 2 MG CAPSULE PO PRN (14:19)
[2024-07-29 07:06] LABS: CHLORIDE 100 mmol/L (98-107); SODIUM 138 mmol/L (136-145)
[2024-07-29 07:12] LABS: CALCIUM 9.2 mg/dL (8.5-10.1)
[2024-07-29 07:13] LABS: ANION GAP 7 mmol/L (4-13); BLOOD UREA NITROGEN 58.5 mg/dL (7-18); CO2 30 mmol/L (21-32); GLUCOSE,RANDOM 72 mg/dL (74-106); MAGNESIUM 2.1 mg/dL (1.8-2.4)
[2024-07-29 07:15] LABS: ALBUMIN 1.8 g/dl (3.4-5.0)
[2024-07-29 07:16] LABS: PHOSPHOROUS 5.4 mg/dL (2.5-4.9)
[2024-07-29 07:18] LABS: SGOT/AST 9 U/L (15-37); TOT PROT 5.2 g/dl (6.4-8.2)
[2024-07-29 07:19] LABS: ALK PHOS 87 U/L (45-117); BILIRUBIN,TOTAL 0.4 mg/dL (0.2-1)
[2024-07-29 07:23] LABS: CREATININE 9.9 mg/dL (0.55-1.3); SGPT/ALT < 6 U/L (13-61)
[2024-07-29] MEDS: EPOETIN ALFA-EPBX 10,000 UNIT/ML VIAL SQ ONE (13:03)
[2024-07-29] MEDS: APIXABAN 5 MG TABLET PO SCH (21:21)
[2024-07-29] MEDS ORDERED: APIXABAN 5 MG TABLET PO SCH (22:00)
[2024-07-30] MEDS ORDERED: SODIUM CHLORIDE 250 ML IV PRN (11:36)
[2024-07-30] MEDS ORDERED: HEPARIN NA (PORCINE) 5,000 UNITS/ML 1ML VIAL IVPUSH ONE (17:03)
[2024-07-30] MEDS ORDERED: HEPARIN NA (PORCINE) 5,000 UNITS/ML 1ML VIAL IVPUSH PRN ×4 (17:04→17:13)
[2024-07-30] MEDS ORDERED: HEPARIN SOD,PORK IN 0.45% NACL 25,000 UNITS/500 ML INFUS.BAG IVPB SCH (17:15)
[2024-07-30] MEDS: HEPARIN INFUSION - 25,000 UNITS/500 ML INFUS.BAG IVPB SCH (18:05)
[2024-07-30] MEDS: HEPARIN NA (PORCINE) 5,000 UNITS/ML 1ML VIAL IVPUSH ONE (18:08)
[2024-07-31 06:32] LABS: HEMATOCRIT 25.4 % (32.4-45.2); HEMOGLOBIN 7.9 GM/dL (10.7-15.3); MCH 30.1 pg (25.7-33.7); MEAN CELL VOLUME 97.1 fl (80-96); MEAN PLT VOLUME 9.3 fl (7.5-11.1); PLATELET COUNT 221 10^3/uL (134-434); RBC 2.62 M/mm3 (3.60-5.2); RDW 17.3 % (11.6-15.6); WHITE BLOOD COUNT 17.6 K/mm3 (4.0-10.0)
[2024-07-31 07:12] LABS: CHLORIDE 101 mmol/L (98-107); POTASSIUM 4.9 mmol/L (3.5-5.1); SODIUM 139 mmol/L (136-145)
[2024-07-31 07:13] LABS: ALBUMIN 1.9 g/dl (3.4-5.0); ANION GAP 5 mmol/L (4-13); CALCIUM 9.7 mg/dL (8.5-10.1); CO2 33 mmol/L (21-32)
[2024-07-31 07:14] LABS: BLOOD UREA NITROGEN 41.4 mg/dL (7-18); GLUCOSE,RANDOM 89 mg/dL (74-106); MAGNESIUM 2.1 mg/dL (1.8-2.4)
[2024-07-31 07:16] LABS: SGOT/AST 15 U/L (15-37); SGPT/ALT < 6 U/L (13-61)
[2024-07-31 07:17] LABS: PHOSPHOROUS 4.6 mg/dL (2.5-4.9)
[2024-07-31 07:19] LABS: ALK PHOS 90 U/L (45-117); BILIRUBIN,TOTAL 0.5 mg/dL (0.2-1); TOT PROT 5.8 g/dl (6.4-8.2)
[2024-07-31] MEDS ORDERED: PROPOFOL 20 ML ONE ×2 (12:32→13:07)
[2024-07-31] MEDS ORDERED: MIDAZOLAM HCL 2 MG/2 ML SINGLE DOSE VIAL ONE ×3 (12:58→13:13)
[2024-07-31] MEDS ORDERED: LIDOCAINE HCL 2% 100 MG/5 ML DISP.SYRIN ONE (13:06)
[2024-07-31] MEDS: LIDOCAINE HCL 1%, 10 MG/ML (20ML VIAL) INF ONE (13:16)
[2024-07-31] MEDS: ceFAZolin SODIUM 1 GM VIAL IVPB ONE (13:20)
[2024-07-31] MEDS ORDERED: diphenhydrAMINE HCL 25 MG CAPSULE (FP) PO PRN (13:51)
[2024-07-31] MEDS ORDERED: SODIUM CHLORIDE 250 ML IV PRN ×2 (13:51)
[2024-07-31] MEDS ORDERED: HEPARIN NA (PORCINE) 5,000 UNITS/ML 1ML VIAL IVPUSH PRN ×2 (13:51)
[2024-07-31] MEDS: MIDODRINE HCL 5 MG TABLET PO SCH (15:43)
[2024-07-31] MEDS: METHIMAZOLE 10 MG TABLET PO SCH (15:43)
[2024-07-31] MEDS: DOCUSATE SODIUM 100 MG CAPSULE (FP) PO SCH (15:43)
[2024-07-31] MEDS: ACETAMINOPHEN 325 MG TABLET (FP) PO SCH (17:00)
[2024-07-31] MEDS: CALCIUM ACETATE 667 MG CAPSULE (FP) PO SCH (17:09)
[2024-07-31] MEDS: EPOETIN ALFA-EPBX 10,000 UNIT/ML VIAL SQ ONE ×2 (18:09→19:18)
[2024-07-31] MEDS: HEPARIN INFUSION - 25,000 UNITS/500 ML INFUS.BAG IVPB SCH (19:18)
[2024-07-31] MEDS: APIXABAN 5 MG TABLET PO SCH (21:12)
[2024-08-01 07:44] LABS: HEMATOCRIT 24.9 % (32.4-45.2); HEMOGLOBIN 7.9 GM/dL (10.7-15.3); MCH 30.5 pg (25.7-33.7); MCHC 31.8 g/dl (32.0-36.0); MEAN PLT VOLUME 9.8 fl (7.5-11.1); PLATELET COUNT 175 10^3/uL (134-434); RBC 2.59 M/mm3 (3.60-5.2); RDW 17.1 % (11.6-15.6); WHITE BLOOD COUNT 15.3 K/mm3 (4.0-10.0)
[2024-08-01 08:14] LABS: CHLORIDE 100 mmol/L (98-107); POTASSIUM 4.1 mmol/L (3.5-5.1); SODIUM 139 mmol/L (136-145)
[2024-08-01 08:17] LABS: ALBUMIN 1.8 g/dl (3.4-5.0); ANION GAP 4 mmol/L (4-13); CALCIUM 8.4 mg/dL (8.5-10.1); CO2 34 mmol/L (21-32)
[2024-08-01 08:18] LABS: BLOOD UREA NITROGEN 28.3 mg/dL (7-18); GLUCOSE,RANDOM 84 mg/dL (74-106); MAGNESIUM 1.7 mg/dL (1.8-2.4)
[2024-08-01 08:20] LABS: SGOT/AST 11 U/L (15-37)
[2024-08-01 08:21] LABS: PHOSPHOROUS 4.1 mg/dL (2.5-4.9)
[2024-08-01 08:22] LABS: BILIRUBIN,TOTAL 0.4 mg/dL (0.2-1); SGPT/ALT < 6 U/L (13-61); TOT PROT 5.5 g/dl (6.4-8.2)
[2024-08-01 08:23] LABS: ALK PHOS 94 U/L (45-117)
[2024-08-01] MEDS: PANTOPRAZOLE 40 MG TABLET PO SCH (09:44)
[2024-08-01] MEDS: FERROUS SO4 325 MG TABLET (FP) PO SCH (09:45)
[2024-08-01] MEDS: FOLIC ACID 1 MG TABLET (FP) PO SCH (09:45)
[2024-08-01] MEDS: FAMOTIDINE 10 MG TABLET PO SCH (09:45)
[2024-08-01] MEDS ORDERED: SODIUM CHLORIDE 250 ML IV PRN (10:26)
[2024-08-01] MEDS: MAGNESIUM 2GM/50ML STERILE WATER IVPB IVPB ONE (14:31)
[2024-08-02] MEDS: ALBUTEROL SO4 2.5/IPRATROPIUM 0.5 INH SOL 3 ML VIAL.NEB. NEB ONE (09:45)
[2024-08-02 10:04] LABS: HEMATOCRIT 26.4 % (32.4-45.2); HEMOGLOBIN 8.3 GM/dL (10.7-15.3); MCH 30.3 pg (25.7-33.7); MCHC 31.4 g/dl (32.0-36.0); MEAN CELL VOLUME 96.4 fl (80-96); MEAN PLT VOLUME 9.9 fl (7.5-11.1); PLATELET COUNT 196 10^3/uL (134-434); RBC 2.74 M/mm3 (3.60-5.2); RDW 17.2 % (11.6-15.6); WHITE BLOOD COUNT 13.9 K/mm3 (4.0-10.0)
[2024-08-02 10:08] LABS: ARTERIAL BLD GAS O2 SATURATION 99.5 % (95-98); ARTERIAL BLOOD GAS BASE EXCESS 3.6 mmol/L (-2-2); ARTERIAL BLOOD GAS PO2 254.7 mmHg (80-100); ARTERIAL BLOOD GAS pH 7.338 (7.350-7.450)
[2024-08-02 10:14] LABS: ALLENS TEST POSITIVE
[2024-08-02 10:15] LABS: PT'S TEMP NP[
[2024-08-02 10:40] LABS: MAGNESIUM 2.3 mg/dL (1.8-2.4)
[2024-08-02 10:44] LABS: PHOSPHOROUS 4.9 mg/dL (2.5-4.9)
[2024-08-02] MEDS ORDERED: ACETYLCYSTEINE 20% 200MG/ML 4 ML VIAL *FOR ORAL / INH USE ONLY NEB ONE (11:00)
[2024-08-02] MEDS: ALBUTEROL SO4 0.083% IH SOL 2.5 MG/3 ML VIAL.NEB. NEB SCH (13:55)
[2024-08-02] MEDS: ACETYLCYSTEINE 20% 200MG/ML 4 ML VIAL *FOR ORAL / INH USE ONLY NEB ONE (13:55)
[2024-08-02 14:59] LABS: CHLORIDE 100 mmol/L (98-107); POTASSIUM 4.7 mmol/L (3.5-5.1); SODIUM 138 mmol/L (136-145)
[2024-08-02 15:01] LABS: CALCIUM 9.2 mg/dL (8.5-10.1)
[2024-08-02 15:02] LABS: ALBUMIN 1.9 g/dl (3.4-5.0); ANION GAP 10 mmol/L (4-13); BLOOD UREA NITROGEN 42.9 mg/dL (7-18); CO2 29 mmol/L (21-32); GLUCOSE,RANDOM 98 mg/dL (74-106)
[2024-08-02 15:05] LABS: SGOT/AST 10 U/L (15-37); SGPT/ALT 7 U/L (13-61)
[2024-08-02 15:06] LABS: BILIRUBIN,TOTAL 0.4 mg/dL (0.2-1)
[2024-08-02 15:07] LABS: CREATININE 7.7 mg/dL (0.55-1.3)
[2024-08-02 15:08] LABS: ALK PHOS 98 U/L (45-117)
[2024-08-02] MEDS: EPOETIN ALFA-EPBX 10,000 UNIT/ML VIAL SQ ONE (16:19)
[2024-08-02] MEDS: SODIUM CHLORIDE IVPB SCH (18:07)
[2024-08-02] MEDS: DAPTOMYCIN IVPB SCH (18:07)
[2024-08-02] MEDS ORDERED: PIPERACILLIN/TAZOB 2.25 GM 2.25 GM in DEXTROSE 5%-WATER - 50 ML IVPB SCH (19:00)
[2024-08-02] MEDS: ACETAMINOPHEN 1000 MG/100 ML BAG IVPB ONE (19:31)
[2024-08-02] MEDS: SODIUM CHLORIDE 250 ML IV STA (20:03)
[2024-08-02] MEDS: PIPERACILLIN/TAZOB 2.25 GM 2.25 GM/50 ML BAG IVPB SCH (20:27)
[2024-08-02 21:44] LABS: HEMATOCRIT 26.2 % (32.4-45.2); HEMOGLOBIN 8.2 GM/dL (10.7-15.3); MCHC 31.3 g/dl (32.0-36.0); MEAN CELL VOLUME 95.8 fl (80-96); MEAN PLT VOLUME 9.7 fl (7.5-11.1); PLATELET COUNT 179 10^3/uL (134-434); RBC 2.74 M/mm3 (3.60-5.2); RDW 17.4 % (11.6-15.6); WHITE BLOOD COUNT 13.3 K/mm3 (4.0-10.0)
[2024-08-02 22:09] LABS: ALBUMIN 1.8 g/dl (3.4-5.0); ANION GAP 11 mmol/L (4-13); BLOOD UREA NITROGEN 19.4 mg/dL (7-18); CALCIUM 8.6 mg/dL (8.5-10.1); CHLORIDE 101 mmol/L (98-107); CO2 28 mmol/L (21-32); GLUCOSE,RANDOM 90 mg/dL (74-106); POTASSIUM 3.8 mmol/L (3.5-5.1); SGOT/AST 11 U/L (15-37); SGPT/ALT < 6 U/L (13-61); SODIUM 140 mmol/L (136-145)
[2024-08-02 22:10] LABS: CREATININE 4.3 mg/dL (0.55-1.3)
[2024-08-02 22:19] LABS: ALK PHOS 95 U/L (45-117); BILIRUBIN,TOTAL 0.5 mg/dL (0.2-1)
[2024-08-03 08:10] LABS: HEMATOCRIT 24.2 % (32.4-45.2); HEMOGLOBIN 7.6 GM/dL (10.7-15.3); MCH 30.1 pg (25.7-33.7); MCHC 31.6 g/dl (32.0-36.0); MEAN CELL VOLUME 95.4 fl (80-96); PLATELET COUNT 170 10^3/uL (134-434); RBC 2.53 M/mm3 (3.60-5.2); RDW 16.7 % (11.6-15.6); WHITE BLOOD COUNT 12.6 K/mm3 (4.0-10.0)
[2024-08-03 08:25] LABS: CHLORIDE 101 mmol/L (98-107); SODIUM 139 mmol/L (136-145)
[2024-08-03 08:30] LABS: ALBUMIN 1.8 g/dl (3.4-5.0); CALCIUM 8.7 mg/dL (8.5-10.1)
[2024-08-03 08:31] LABS: ANION GAP 5 mmol/L (4-13); BLOOD UREA NITROGEN 24.3 mg/dL (7-18); CO2 33 mmol/L (21-32); GLUCOSE,RANDOM 75 mg/dL (74-106); MAGNESIUM 1.9 mg/dL (1.8-2.4)
[2024-08-03 08:33] LABS: SGOT/AST 9 U/L (15-37)
[2024-08-03 08:34] LABS: CREATININE 5.1 mg/dL (0.55-1.3); PHOSPHOROUS 3.6 mg/dL (2.5-4.9)
[2024-08-03 08:35] LABS: BILIRUBIN,TOTAL 0.4 mg/dL (0.2-1); TOT PROT 5.7 g/dl (6.4-8.2)
[2024-08-03 08:36] LABS: ALK PHOS 91 U/L (45-117); SGPT/ALT < 6 U/L (13-61)
[2024-08-03] MEDS: MIDODRINE HCL 5 MG TABLET PO SCH (10:16)
[2024-08-03] MEDS: PIPERACILLIN/TAZOB 2.25 GM 2.25 GM/50 ML BAG IVPB SCH ×2 (14:19→17:09)
[2024-08-04 08:12] LABS: HEMATOCRIT 26.6 % (32.4-45.2); HEMOGLOBIN 8.4 GM/dL (10.7-15.3); MCH 29.9 pg (25.7-33.7); MCHC 31.4 g/dl (32.0-36.0); MEAN CELL VOLUME 95.1 fl (80-96); MEAN PLT VOLUME 10.4 fl (7.5-11.1); PLATELET COUNT 190 10^3/uL (134-434); RDW 17.5 % (11.6-15.6); WHITE BLOOD COUNT 11.7 K/mm3 (4.0-10.0)
[2024-08-04 08:15] LABS: BASO % 0.6 % (0-2.0); EOS % 0.5 % (0-4.5); HEMATOCRIT 26.6 % (32.4-45.2); HEMOGLOBIN 8.5 GM/dL (10.7-15.3); LYMPH % 17.2 % (8-40); MCH 30.3 pg (25.7-33.7); MCHC 31.9 g/dl (32.0-36.0); MEAN CELL VOLUME 95.1 fl (80-96); MEAN PLT VOLUME 10.5 fl (7.5-11.1); MONO % 9.1 % (3.8-10.2); NEUT % 72.6 % (42.8-82.8); PLATELET COUNT 189 10^3/uL (134-434); RDW 17.6 % (11.6-15.6); WHITE BLOOD COUNT 11.9 K/mm3 (4.0-10.0)
[2024-08-04 08:30] LABS: CHLORIDE 98 mmol/L (98-107); POTASSIUM 4.4 mmol/L (3.5-5.1); SODIUM 139 mmol/L (136-145)
[2024-08-04 08:36] LABS: ALBUMIN 1.9 g/dl (3.4-5.0); ANION GAP 9 mmol/L (4-13); BLOOD UREA NITROGEN 33.7 mg/dL (7-18); CO2 32 mmol/L (21-32); GLUCOSE,RANDOM 70 mg/dL (74-106); MAGNESIUM 2.1 mg/dL (1.8-2.4)
[2024-08-04 08:39] LABS: CREATININE 6.1 mg/dL (0.55-1.3); PHOSPHOROUS 4.4 mg/dL (2.5-4.9); SGOT/AST 11 U/L (15-37); SGPT/ALT < 6 U/L (13-61)
[2024-08-04 08:40] LABS: BILIRUBIN,TOTAL 0.5 mg/dL (0.2-1); TOT PROT 6.3 g/dl (6.4-8.2)
[2024-08-04 08:41] LABS: ALK PHOS 94 U/L (45-117)
[2024-08-04] MEDS ORDERED: SODIUM CHLORIDE 250 ML IV PRN (13:15)
[2024-08-04] MEDS: APIXABAN 5 MG TABLET PO SCH (21:06)
[2024-08-05] MEDS: hydrOXYzine PAMOATE 25 MG CAPSULE (FP) PO ONE (00:46)
[2024-08-05] MEDS: MELATONIN 5 MG TABLETS PO ONE (00:47)
[2024-08-05 09:44] LABS: HEMATOCRIT 29.8 % (32.4-45.2); HEMOGLOBIN 9.3 GM/dL (10.7-15.3); MCH 29.9 pg (25.7-33.7); MCHC 31.2 g/dl (32.0-36.0); MEAN CELL VOLUME 95.8 fl (80-96); MEAN PLT VOLUME 10.9 fl (7.5-11.1); PLATELET COUNT 249 10^3/uL (134-434); RBC 3.12 M/mm3 (3.60-5.2); RDW 17.6 % (11.6-15.6); WHITE BLOOD COUNT 13.7 K/mm3 (4.0-10.0)
[2024-08-05 10:32] LABS: CHLORIDE 97 mmol/L (98-107); POTASSIUM 4.9 mmol/L (3.5-5.1); SODIUM 136 mmol/L (136-145)
[2024-08-05 10:33] LABS: CALCIUM 10.2 mg/dL (8.5-10.1)
[2024-08-05 10:34] LABS: ANION GAP 12 mmol/L (4-13); CO2 27 mmol/L (21-32); MAGNESIUM 2.2 mg/dL (1.8-2.4)
[2024-08-05 10:35] LABS: BLOOD UREA NITROGEN 42.5 mg/dL (7-18)
[2024-08-05 10:36] LABS: GLUCOSE,RANDOM 61 mg/dL (74-106)
[2024-08-05 10:38] LABS: SGPT/ALT < 6 U/L (13-61)
[2024-08-05 10:39] LABS: PHOSPHOROUS 5.2 mg/dL (2.5-4.9); SGOT/AST 24 U/L (15-37)
[2024-08-05 10:40] LABS: BILIRUBIN,TOTAL 0.6 mg/dL (0.2-1); TOT PROT 6.9 g/dl (6.4-8.2)
[2024-08-05 10:41] LABS: ALK PHOS 112 U/L (45-117)
[2024-08-05 10:46] LABS: CREATININE 7.5 mg/dL (0.55-1.3)
[2024-08-05] MEDS: EPOETIN ALFA-EPBX 10,000 UNIT/ML VIAL SQ ONE (10:55)
[2024-08-05] MEDS: LACTOBACILLUS ACIDOPHILUS 1 TABLET PO SCH (23:09)
[2024-08-05] MEDS: LOPERAMIDE HCL 2 MG CAPSULE PO PRN (23:11)
[2024-08-06 10:28] LABS: POTASSIUM 5.2 mmol/L (3.5-5.1)
[2024-08-06 10:32] LABS: ALBUMIN 2.1 g/dl (3.4-5.0); CALCIUM 10.2 mg/dL (8.5-10.1)
[2024-08-06 10:33] LABS: BLOOD UREA NITROGEN 29.7 mg/dL (7-18); MAGNESIUM 2.1 mg/dL (1.8-2.4)
[2024-08-06 10:36] LABS: CREATININE 5.8 mg/dL (0.55-1.3); PHOSPHOROUS 5.3 mg/dL (2.5-4.9)
[2024-08-06 10:37] LABS: BILIRUBIN,TOTAL 0.6 mg/dL (0.2-1); TOT PROT 6.2 g/dl (6.4-8.2)
[2024-08-06] MEDS ORDERED: SODIUM CHLORIDE 250 ML IV PRN (11:48)
[2024-08-06 13:05] LABS: HEMATOCRIT 29.2 % (32.4-45.2); HEMOGLOBIN 9.3 GM/dL (10.7-15.3); MCH 30.2 pg (25.7-33.7); MCHC 31.7 g/dl (32.0-36.0); MEAN CELL VOLUME 95.4 fl (80-96); MEAN PLT VOLUME 10.5 fl (7.5-11.1); PLATELET COUNT 226 10^3/uL (134-434); RBC 3.06 M/mm3 (3.60-5.2); RDW 17.7 % (11.6-15.6); WHITE BLOOD COUNT 13.4 K/mm3 (4.0-10.0)
[2024-08-06] MEDS: SODIUM CHLORIDE 0.9% 250 ML INFUS.BAG IV ONE (17:01)
[2024-08-06] MEDS: DIGOXIN 0.25 MG TABLET PO ONE (19:45)
[2024-08-06] MEDS: SODIUM CHLORIDE 250 ML IV STA (23:04)
[2024-08-06] MEDS ORDERED: RAPID SEQUENCE INTUBATION KIT NR ONE (23:23)
[2024-08-07] MEDS: NOREPINEPHRINE BITARTRATE 8,000 MCG in DEXTROSE 5%-WATER - 492 ML IV SCH (00:05)
[2024-08-07] MEDS ORDERED: VASopressin 20 UNITS/ML VIAL IV ONE (00:21)
[2024-08-07 00:57] LABS: ARTERIAL BLD GAS O2 SATURATION 98.4 % (95-98); ARTERIAL BLOOD GAS BASE EXCESS -9.6 mmol/L (-2-2); ARTERIAL BLOOD GAS PO2 134.4 mmHg (80-100)
[2024-08-07 00:59] LABS: VENT MODE V-AC; VENT RATE 20
[2024-08-07 01:41] LABS: HEMATOCRIT 29.9 % (32.4-45.2); HEMOGLOBIN 9.2 GM/dL (10.7-15.3); MCH 29.9 pg (25.7-33.7); MCHC 30.7 g/dl (32.0-36.0); MEAN CELL VOLUME 97.5 fl (80-96); MEAN PLT VOLUME 10.6 fl (7.5-11.1); PLATELET COUNT 234 10^3/uL (134-434); RBC 3.06 M/mm3 (3.60-5.2); RDW 18.5 % (11.6-15.6); WHITE BLOOD COUNT 19.9 K/mm3 (4.0-10.0)
[2024-08-07 02:00] LABS: CHLORIDE 102 mmol/L (98-107); POTASSIUM 5.7 mmol/L (3.5-5.1); SODIUM 137 mmol/L (136-145)
[2024-08-07 02:01] LABS: INR 3.7 (0.83-1.09); PROTHROMBIN TIME (PATIENT) 40.2 SEC (9.7-13.0)
[2024-08-07 02:03] LABS: ALBUMIN 2.1 g/dl (3.4-5.0); ANION GAP 16 mmol/L (4-13); BLOOD UREA NITROGEN 36.6 mg/dL (7-18); CALCIUM 10.2 mg/dL (8.5-10.1); CO2 19 mmol/L (21-32)
[2024-08-07 02:04] LABS: ACTIVATED PTT 44.5 SECONDS (25.2-36.5)
[2024-08-07 02:06] LABS: CREATININE 6.5 mg/dL (0.55-1.3); SGPT/ALT 134 U/L (13-61)
[2024-08-07 02:07] LABS: PHOSPHOROUS 7.8 mg/dL (2.5-4.9)
[2024-08-07 02:08] LABS: BILIRUBIN,TOTAL 0.7 mg/dL (0.2-1); TOT PROT 6.4 g/dl (6.4-8.2)
[2024-08-07 02:09] LABS: ALK PHOS 131 U/L (45-117)
[2024-08-07 02:17] LABS: GLUCOSE,RANDOM 11 mg/dL (74-106)
[2024-08-07 02:18] LABS: LACTIC ACID 10.5 mmol/L (0.4-2.0)
[2024-08-07] MEDS ORDERED: DEXTROSE 50%-WATER 25 GM/50 ML DISP.SYRIN ONE ×2 (02:21→21:42)
[2024-08-07 02:25] LABS: SGOT/AST 2856 U/L (15-37)
[2024-08-07] MEDS: DEXTROSE 50%-WATER 25 GM/50 ML DISP.SYRIN IVPUSH ONE ×4 (02:45→08:13)
[2024-08-07] MEDS: MUPIROCIN 2% TOPICAL OINTMENT FOR DECOLONIZATION NS SCH (03:00)
[2024-08-07] MEDS ORDERED: NOREPINEPHRINE BITARTRATE 4 MG/4 ML ML IV ONE (03:13)
[2024-08-07] MEDS: SODIUM BICARBONATE 8.4% 50 MEQ/50 ML DISP.SYRIN IVPUSH ONE (03:15)
[2024-08-07] MEDS: DEXMEDETOMIDINE PREMIX 400 MCG/100 ML BAG IVPB SCH (04:06)
[2024-08-07] MEDS: SODIUM BICARBONATE 8.4% - 150 MEQ in DEXTROSE 5%-WATER - 950 ML IVPB ONE (04:06)
[2024-08-07 04:21] LABS: LACTIC ACID 10.9 mmol/L (0.4-2.0)
[2024-08-07 06:23] LABS: HEMATOCRIT 28.5 % (32.4-45.2); HEMOGLOBIN 8.6 GM/dL (10.7-15.3); MCH 29.9 pg (25.7-33.7); MEAN CELL VOLUME 99.6 fl (80-96); MEAN PLT VOLUME 11.1 fl (7.5-11.1); PLATELET COUNT 228 10^3/uL (134-434); RBC 2.86 M/mm3 (3.60-5.2); RDW 18.3 % (11.6-15.6); WHITE BLOOD COUNT 23.7 K/mm3 (4.0-10.0)
[2024-08-07] MEDS: HYDROCORTISONE SOD SUCCINATE 100 MG/2 ML VIAL IVPB SCH (06:32)
[2024-08-07 06:34] LABS: INR 3.62 (0.83-1.09); PROTHROMBIN TIME (PATIENT) 39.4 SEC (9.7-13.0)
[2024-08-07 06:34] LABS: ARTERIAL BLD GAS O2 SATURATION 98.2 % (95-98); ARTERIAL BLOOD GAS BASE EXCESS -11.2 mmol/L (-2-2); ARTERIAL BLOOD GAS PO2 138.4 mmHg (80-100); ARTERIAL BLOOD GAS pH 7.209 (7.350-7.450)
[2024-08-07 06:37] LABS: ACTIVATED PTT 47.4 SECONDS (25.2-36.5)
[2024-08-07 06:41] LABS: VENT MODE A/C; VENT RATE 20
[2024-08-07 06:43] LABS: MAGNESIUM 1.9 mg/dL (1.8-2.4)
[2024-08-07 06:46] LABS: BILIRUBIN,DIRECT 0.3 mg/dL (0.0-0.2); PHOSPHOROUS 8.2 mg/dL (2.5-4.9)
[2024-08-07 06:48] LABS: BILIRUBIN,TOTAL 0.7 mg/dL (0.2-1)
[2024-08-07] MEDS: ALBUTEROL SO4 0.083% IH SOL 2.5 MG/3 ML VIAL.NEB. NEB SCH (07:15)
[2024-08-07 07:24] LABS: POTASSIUM 5.9 mmol/L (3.5-5.1)
[2024-08-07 07:26] LABS: CALCIUM 9.7 mg/dL (8.5-10.1)
[2024-08-07] MEDS ORDERED: diphenhydrAMINE HCL 25 MG CAPSULE (FP) PO PRN (07:26)
[2024-08-07] MEDS ORDERED: LOPERAMIDE HCL 2 MG CAPSULE PO PRN (07:26)
[2024-08-07] MEDS ORDERED: SODIUM CHLORIDE 250 ML IV PRN ×2 (07:26)
[2024-08-07 07:27] LABS: BLOOD UREA NITROGEN 38.4 mg/dL (7-18)
[2024-08-07 07:30] LABS: CREATININE 6.7 mg/dL (0.55-1.3)
[2024-08-07] MEDS ORDERED: CALCIUM GLUCONATE 10% - 1,000 MG/10 ML VIAL IVPUSH ONE (07:30)
[2024-08-07 07:32] LABS: BILIRUBIN,TOTAL 0.7 mg/dL (0.2-1); TOT PROT 5.9 g/dl (6.4-8.2)
[2024-08-07] MEDS: INSULIN REGULAR HUMAN 100 UNITS/ML *VIAL IVPUSH ONE (08:13)
[2024-08-07] MEDS: CALCIUM GLUCONATE IN NACL 1 GM/50 ML BAG IVPB ONE (08:13)
[2024-08-07] MEDS: CALCIUM ACETATE 667 MG CAPSULE (FP) PO SCH (08:34)
[2024-08-07] MEDS: NOREPINEPHRINE BITARTRATE/D5W 8 MG/250 ML BAG IVPB SCH (09:58)
[2024-08-07] MEDS ORDERED: HEPARIN NA (PORCINE) 5,000 UNITS/ML 1ML VIAL SQ SCH (10:00)
[2024-08-07] MEDS ORDERED: MUPIROCIN 2% TOPICAL OINTMENT FOR DECOLONIZATION NS SCH (10:00)
[2024-08-07] MEDS: VASopressin 40 UNITS/100 ML BAG IV SCH (10:00)
[2024-08-07 10:27] LABS: HEMATOCRIT 27.1 % (32.4-45.2); HEMOGLOBIN 8.1 GM/dL (10.7-15.3); MCH 29.9 pg (25.7-33.7); MCHC 29.8 g/dl (32.0-36.0); MEAN CELL VOLUME 100.5 fl (80-96); MEAN PLT VOLUME 10.9 fl (7.5-11.1); PLATELET COUNT 194 10^3/uL (134-434); RDW 17.6 % (11.6-15.6); WHITE BLOOD COUNT 21.5 K/mm3 (4.0-10.0)
[2024-08-07 10:35] LABS: INR 3.9 (0.83-1.09); PROTHROMBIN TIME (PATIENT) 43.1 SEC (9.7-13.0)
[2024-08-07 10:37] LABS: POTASSIUM 4.7 mmol/L (3.5-5.1)
[2024-08-07 10:39] LABS: CALCIUM 9.9 mg/dL (8.5-10.1)
[2024-08-07 10:40] LABS: ALBUMIN 1.9 g/dl (3.4-5.0); BLOOD UREA NITROGEN 41.2 mg/dL (7-18); MAGNESIUM 2.2 mg/dL (1.8-2.4)
[2024-08-07 10:43] LABS: PHOSPHOROUS 7.1 mg/dL (2.5-4.9)
[2024-08-07 10:44] LABS: BILIRUBIN,TOTAL 0.8 mg/dL (0.2-1)
[2024-08-07 10:45] LABS: TOT PROT 5.5 g/dl (6.4-8.2)
[2024-08-07 10:46] LABS: LACTIC ACID 12.6 mmol/L (0.4-2.0)
[2024-08-07] MEDS: PANTOPRAZOLE SODIUM 40 MG VIAL IVPUSH SCH (10:59)
[2024-08-07] MEDS ORDERED: LACTATED RINGERS SOLUTION 1,000 ML/1,000 ML INFUS.BAG IV STA (11:07)
[2024-08-07] MEDS ORDERED: LACTATED RINGERS SOLUTION 1,000 ML/1,000 ML INFUS.BAG IV SCH (11:15)
[2024-08-07] MEDS: SODIUM CHLORIDE 1,000 ML IV STA (11:16)
[2024-08-07] MEDS ORDERED: EPOETIN ALFA-EPBX 10,000 UNIT/ML VIAL SQ ONE (11:48)
[2024-08-07] MEDS: MIDAZOLAM IN 0.9 % SOD.CHLORID 100 MG/100 ML PLAST..BAG IVPB SCH (11:59)
[2024-08-07] MEDS: SODIUM CHLORIDE 1,000 ML IV SCH (12:19)
[2024-08-07] MEDS: PIPERACILLIN/TAZOB 2.25 GM 2.25 GM/50 ML BAG IVPB SCH (12:19)
[2024-08-07] MEDS: FOLIC ACID 1 MG TABLET (FP) PO SCH (13:48)
[2024-08-07] MEDS: APIXABAN 5 MG TABLET PO SCH (13:48)
[2024-08-07] MEDS: ACETAMINOPHEN 325 MG TABLET (FP) PO SCH (13:49)
[2024-08-07] MEDS: FERROUS SO4 325 MG TABLET (FP) PO SCH (13:49)
[2024-08-07] MEDS: METHIMAZOLE 10 MG TABLET PO SCH (13:49)
[2024-08-07] MEDS: SODIUM ZIRCONIUM CYCLOSILICATE (LOKELMA) 10 GM PACKET NGT SCH (16:18)
[2024-08-07] MEDS: EPOETIN ALFA-EPBX 10,000 UNIT/ML VIAL SQ ONE (17:10)
[2024-08-07] MEDS: DAPTOMYCIN IVPB SCH (17:45)
[2024-08-07] MEDS: SODIUM CHLORIDE IVPB SCH (17:45)
[2024-08-07 20:24] LABS: ARTERIAL BLD GAS O2 SATURATION 99.7 % (95-98); ARTERIAL BLOOD GAS BASE EXCESS -9.5 mmol/L (-2-2); ARTERIAL BLOOD GAS PO2 324.2 mmHg (80-100); ARTERIAL BLOOD GAS pH 7.348 (7.350-7.450)
[2024-08-07 20:26] LABS: VENT MODE A/C; VENT RATE 20
[2024-08-07] MEDS: CHLORHEXIDINE GLUCONATE 4% CLEANSER FOR DECOLONIZATION TP SCH (21:45)
[2024-08-07] MEDS: ARTIFICIAL TEARS OPHTHALMIC DROPS OU PRN (21:45)
[2024-08-07] MEDS: LACTOBACILLUS ACIDOPHILUS 1 TABLET PO SCH (21:45)
[2024-08-07] MEDS: DEXTROSE 50%-WATER - 25 GM/50 ML VIAL IVPUSH ONE (21:50)
[2024-08-07] MEDS ORDERED: CHLORHEXIDINE GLUCONATE 4% CLEANSER FOR DECOLONIZATION TP SCH (22:00)
[2024-08-07] MEDS ORDERED: MIDODRINE HCL 5 MG TABLET PO ONE (23:30)
[2024-08-08] MEDS ORDERED: DEXTROSE 50%-WATER 25 GM/50 ML DISP.SYRIN ONE ×4 (04:57→13:12)
[2024-08-08] MEDS ORDERED: SODIUM BICARBONATE 8.4% 50 MEQ/50 ML DISP.SYRIN ONE (05:08)
[2024-08-08 05:57] LABS: ARTERIAL BLD GAS O2 SATURATION 99.5 % (95-98); ARTERIAL BLOOD GAS BASE EXCESS -12.9 mmol/L (-2-2); ARTERIAL BLOOD GAS PO2 281.3 mmHg (80-100)
[2024-08-08 06:03] LABS: VENT RATE 20
[2024-08-08] MEDS: SODIUM BICARBONATE 8.4% 50 MEQ/50 ML DISP.SYRIN IVPUSH ONE (06:34)
[2024-08-08 07:48] LABS: HEMOGLOBIN 7.1 GM/dL (10.7-15.3); MCH 30.4 pg (25.7-33.7); MCHC 29.6 g/dl (32.0-36.0); MEAN CELL VOLUME 102.9 fl (80-96); MEAN PLT VOLUME 10.4 fl (7.5-11.1); PLATELET COUNT 99 10^3/uL (134-434); RBC 2.33 M/mm3 (3.60-5.2); RDW 18.3 % (11.6-15.6); WHITE BLOOD COUNT 14.1 K/mm3 (4.0-10.0)
[2024-08-08 07:55] LABS: POTASSIUM 4.2 mmol/L (3.5-5.1)
[2024-08-08 07:58] LABS: ALBUMIN 1.5 g/dl (3.4-5.0); BLOOD UREA NITROGEN 27.3 mg/dL (7-18); CALCIUM 8.8 mg/dL (8.5-10.1); MAGNESIUM 1.8 mg/dL (1.8-2.4)
[2024-08-08 08:01] LABS: CREATININE 5.1 mg/dL (0.55-1.3); PHOSPHOROUS 6.6 mg/dL (2.5-4.9)
[2024-08-08 08:03] LABS: BILIRUBIN,TOTAL 0.8 mg/dL (0.2-1); TOT PROT 4.6 g/dl (6.4-8.2)
[2024-08-08 08:22] LABS: LACTIC ACID 21.1 mmol/L (0.4-2.0)
[2024-08-08] MEDS: METHIMAZOLE 10 MG TABLET PO SCH (09:13)
[2024-08-08] MEDS: FLUDROCORTISONE ACETATE 0.1 MG TABLET (FP) NGT SCH (09:13)
[2024-08-08] MEDS ORDERED: DIGOXIN 0.125 MG TABLET PO SCH (10:00)
[2024-08-08] MEDS: MORPHINE SULFATE/0.9% NACL/PF 100 MG/100 ML BAG IVPB SCH (10:56)
[2024-08-08] MEDS: DEXTROSE 50%-WATER - 25 GM/50 ML VIAL IVPUSH PRN (12:26)
[2024-08-08 15:08] VITALS: BP 84/50; PULSE 93; RESP 25; TEMP 94.9
== END 2024-08-08 17:43 | disposition expired | DRG 853 ==
LOC: JER 08:50 → INTOOBSV 12:39 → UNDOADMOB 12:39 → JERBED 12:39 → OBSVTOIN 15:57 → J4S 21:45 → JICU 07-17 18:24 → J2W 07-25 13:00 → J4S 08-01 20:30 → JICU 08-07 00:29
PROVIDERS: ADMIT Internal Medicine; ATTEND Internal Medicine Pulmonary Disease
PROC: 5A1D70Z Performance of Urinary Filtration, Intermittent, Less than 6 Hours Per Day (ICD-10-PCS; 2024-07-16)
PROC: 05HD33Z Insertion of Infusion Device into Right Cephalic Vein, Percutaneous Approach (ICD-10-PCS; 2024-07-19)
PROC: B54MZZA Ultrasonography of Right Upper Extremity Veins, Guidance (ICD-10-PCS; 2024-07-19)
PROC: 4A11X4G Monitoring of Peripheral Nervous Electrical Activity, Intraoperative, External Approach (ICD-10-PCS; 2024-07-19)
PROC: 0RG7071 Fusion of 2 to 7 Thoracic Vertebral Joints with Autologous Tissue Substitute, Posterior Approach, Posterior Column, Open Approach (ICD-10-PCS; 2024-07-22)
PROC: 00NX0ZZ Release Thoracic Spinal Cord, Open Approach (ICD-10-PCS; principal; 2024-07-22 12:00)
PROC: 00QT0ZZ Repair Spinal Meninges, Open Approach (ICD-10-PCS; 2024-07-23)
PROC: 0PW404Z Revision of Internal Fixation Device in Thoracic Vertebra, Open Approach (ICD-10-PCS; 2024-07-23)
PROC: 0RG7071 Fusion of 2 to 7 Thoracic Vertebral Joints with Autologous Tissue Substitute, Posterior Approach, Posterior Column, Open Approach (ICD-10-PCS; 2024-07-23)
PROC: 0RP604Z Removal of Internal Fixation Device from Thoracic Vertebral Joint, Open Approach (ICD-10-PCS; 2024-07-23)
PROC: 06HN33Z Insertion of Infusion Device into Left Femoral Vein, Percutaneous Approach (ICD-10-PCS; 2024-07-26)
PROC: B54CZZA Ultrasonography of Left Lower Extremity Veins, Guidance (ICD-10-PCS; 2024-07-26)
PROC: 0JH63XZ Insertion of Tunneled Vascular Access Device into Chest Subcutaneous Tissue and Fascia, Percutaneous Approach (ICD-10-PCS; 2024-07-31)
PROC: 02H633Z Insertion of Infusion Device into Right Atrium, Percutaneous Approach (ICD-10-PCS; 2024-07-31)
PROC: B518ZZA Fluoroscopy of Superior Vena Cava, Guidance (ICD-10-PCS; 2024-07-31)
PROC: 5A1D70Z Performance of Urinary Filtration, Intermittent, Less than 6 Hours Per Day (ICD-10-PCS; 2024-08-02)
PROC: 5A1D70Z Performance of Urinary Filtration, Intermittent, Less than 6 Hours Per Day (ICD-10-PCS; 2024-08-05)
PROC: 5A1D70Z Performance of Urinary Filtration, Intermittent, Less than 6 Hours Per Day (ICD-10-PCS; 2024-08-07)
PROC: 4A133B1 Monitoring of Arterial Pressure, Peripheral, Percutaneous Approach (ICD-10-PCS; 2024-08-07)
PROC: 4A133J1 Monitoring of Arterial Pulse, Peripheral, Percutaneous Approach (ICD-10-PCS; 2024-08-07)
PROC: 5A12012 Performance of Cardiac Output, Single, Manual (ICD-10-PCS; 2024-08-07)
PROC: 5A1945Z Respiratory Ventilation, 24-96 Consecutive Hours (ICD-10-PCS; 2024-08-07)
PROC: 0BH17EZ Insertion of Endotracheal Airway into Trachea, Via Natural or Artificial Opening (ICD-10-PCS; 2024-08-07)
DX: A41.02 Sepsis due to Methicillin resistant Staphylococcus aureus (principal); G06.2 Extradural and subdural abscess, unspecified; J18.9 Pneumonia, unspecified organism; R65.21 Severe sepsis with septic shock; K72.00 Acute and subacute hepatic failure without coma; J96.01 Acute respiratory failure with hypoxia; N18.6 End stage renal disease; N17.9 Acute kidney failure, unspecified; I48.92 Unspecified atrial flutter; J44.0 Chronic obstructive pulmonary disease with (acute) lower respiratory infection; C18.9 Malignant neoplasm of colon, unspecified; I13.2 Hypertensive heart and chronic kidney disease with heart failure and with stage 5 chronic kidney disease, or end stage renal disease; I50.32 Chronic diastolic (congestive) heart failure; E87.1 Hypo-osmolality and hyponatremia; J98.11 Atelectasis; M46.24 Osteomyelitis of vertebra, thoracic region; G97.41 Accidental puncture or laceration of dura during a procedure; Y83.8 Other surgical procedures as the cause of abnormal reaction of the patient, or of later complication, without mention of misadventure at the time of the procedure; I46.9 Cardiac arrest, cause unspecified; M54.9 Dorsalgia, unspecified; E05.90 Thyrotoxicosis, unspecified without thyrotoxic crisis or storm; M47.24 Other spondylosis with radiculopathy, thoracic region; M46.44 Discitis, unspecified, thoracic region; E87.5 Hyperkalemia; I08.1 Rheumatic disorders of both mitral and tricuspid valves; I27.20 Pulmonary hypertension, unspecified; E78.5 Hyperlipidemia, unspecified; D69.6 Thrombocytopenia, unspecified; D63.1 Anemia in chronic kidney disease; I48.0 Paroxysmal atrial fibrillation; Z99.2 Dependence on renal dialysis
CPT/HCPCS: 0241U-QW; 31500; 36415; 36600; 71045-TC-FY; 72128-TC; 72146-TC; 76000-TC-FY; 80048; 80053; 80061; 80076; 82140; 82272; 82550; 82553; 82803; 82962; 83036; 83605; 83735; 83880; 84100; 84439; 84443; 84481; 84484; 85025; 85027; 85384; 85610; 85730; 86705; 86803; 86922; 87040; 87070; 87075; 87186; 87205; 87340; 87481; 88307-TC; 88311-TC; 88329; 88342-TC; 93005; 93010; 93306-TC; 93971; 94002; 94640; 94760; 94761; 97116-GP; 97161-GP; 99291; C1602; C1713; C1750; C1889; G0378; G0480; J0131; J0282; J0878; J1644; J3490; Q5106